=== PATIENT | male | born 1965 | race Caucasian/White ===

== ENCOUNTER → 2020-02-18 | Outpatient (CLI) | payer OTHER ==
[2020-02-18 14:17] LABS: CREATININE SERUM 2.12 MG/DL (0.60-1.30); POTASSIUM 3.4 MMOL/L (3.6-5.0)
[2020-02-18 14:21] LABS: CALCIUM 9.5 MG/DL (8.5-10.1)
== END ==
LOC: LAB FS 13:03
PROVIDERS: ATTEND Family Medicine
DX: L03.119 Cellulitis of unspecified part of limb (principal)
CPT/HCPCS: 36415; 80048

== ENCOUNTER → 2020-05-23 | Outpatient (CLI) | payer OTHER | LOC: WOUNDCARE 14:29 | PROVIDERS: ATTEND Surgery | DX: E11.52 Type 2 diabetes mellitus with diabetic peripheral angiopathy with gangrene (principal); E11.622 Type 2 diabetes mellitus with other skin ulcer; E11.65 Type 2 diabetes mellitus with hyperglycemia; I96 Gangrene, not elsewhere classified; I87.333 Chronic venous hypertension (idiopathic) with ulcer and inflammation of bilateral lower extremity; L97.212 Non-pressure chronic ulcer of right calf with fat layer exposed; L97.221 Non-pressure chronic ulcer of left calf limited to breakdown of skin; L73.9 Follicular disorder, unspecified; M35.9 Systemic involvement of connective tissue, unspecified | CPT/HCPCS: 11104 ==

== ENCOUNTER → 2020-05-23 | Outpatient (CLI) | payer OTHER ==
[2020-05-23 16:58] LABS: ERYTHROCYTE SEDIMENTATION RATE 34 MM/HR (0-30)
[2020-05-23 17:03] LABS: BASOPHILS # (AUTO) 0.1 10^3/uL (0.0-0.1); BASOPHILS % (AUTO) 1 % (0-10); EOSINOPHILS # (AUTO) 0.3 10^3/uL (0.0-0.3); EOSINOPHILS % (AUTO) 6 % (0-10); HEMATOCRIT 37 % (40-54); HEMOGLOBIN 12.9 g/dL (13.3-17.7); LYMPHOCYTES # (AUTO) 1.7 10^3/uL (1.0-4.0); LYMPHOCYTES % (AUTO) 30 % (12-44); MEAN CORPUSCULAR HEMOGLOBIN 29 pg (25-34); MEAN CORPUSCULAR HGB CONC 35 g/dL (32-36); MEAN CORPUSCULAR VOLUME 83 fL (80-99); MEAN PLATELET VOLUME 10.8 fL (9.0-12.2); MONOCYTES # (AUTO) 0.4 10^3/uL (0.0-1.0); MONOCYTES % (AUTO) 7 % (0-12); NEUTROPHILS # (AUTO) 3.1 10^3/uL (1.8-7.8); NEUTROPHILS % (AUTO) 55 % (42-75); PLATELET COUNT 216 10^3/uL (130-400); WHITE BLOOD COUNT 5.6 10^3/uL (4.3-11.0)
== END ==
LOC: LAB 16:26
PROVIDERS: ATTEND Surgery
DX: M35.9 Systemic involvement of connective tissue, unspecified (principal); E11.622 Type 2 diabetes mellitus with other skin ulcer; E11.65 Type 2 diabetes mellitus with hyperglycemia; I87.333 Chronic venous hypertension (idiopathic) with ulcer and inflammation of bilateral lower extremity; L97.212 Non-pressure chronic ulcer of right calf with fat layer exposed; L97.222 Non-pressure chronic ulcer of left calf with fat layer exposed; L73.9 Follicular disorder, unspecified
CPT/HCPCS: 36415; 85025; 85652; 86141

== ENCOUNTER → 2020-06-08 | Outpatient (CLI) | payer OTHER | LOC: WOUNDCARE 14:40 | PROVIDERS: ATTEND Surgery | DX: M35.9 Systemic involvement of connective tissue, unspecified (principal); E11.622 Type 2 diabetes mellitus with other skin ulcer; I87.333 Chronic venous hypertension (idiopathic) with ulcer and inflammation of bilateral lower extremity; L97.212 Non-pressure chronic ulcer of right calf with fat layer exposed; L97.221 Non-pressure chronic ulcer of left calf limited to breakdown of skin; E11.65 Type 2 diabetes mellitus with hyperglycemia; L73.9 Follicular disorder, unspecified; I96 Gangrene, not elsewhere classified | CPT/HCPCS: 99213 ==

== ENCOUNTER → 2020-12-20 | Outpatient (CLI) | payer OTHER ==
--- NOTE | 2020-12-20 17:00 | Diagnostic Imaging Report ---
PROCEDURE: CT chest without contrast. TECHNIQUE: Multiple contiguous axial images were obtained through the chest without the use of intravenous contrast. Auto Exposure Controls were utilized during the CT exam to meet ALARA standards for radiation dose reduction. INDICATION: Cardiac disease. FINDINGS: The lungs are well aerated. There are no infiltrates. There is a 3 mm calcified nodule in the right middle lobe. Aorta is atherosclerotic. Coronary arteries are densely calcified. No pleural effusions or pericardial effusions. The adrenal glands are not enlarged. No bony abnormalities. IMPRESSION: Small calcified granuloma, otherwise negative. Dictated by: Dictated on workstation # [id number]
== END ==
LOC: RAD FS 12:44
PROVIDERS: ATTEND Nurse Practitioner Family
DX: L92.9 Granulomatous disorder of the skin and subcutaneous tissue, unspecified (principal); R91.1 Solitary pulmonary nodule
CPT/HCPCS: 71250

== ENCOUNTER 2021-03-30 13:21 | Emergency (ER) | payer OTHER ==
[~2021-03-30] VITALS: Ht 177.7 cm; Wt 104.0 kg
--- OUTSIDE RECORDS SUMMARY | 2021-03-30 13:27 | XMS REPORT | Encounter Summary ---
Author Author [facility] Organization [facility] Address Unknown Phone Unavailable Care Team Providers Care Relay Checker Name Role Phone Provider, Not In System PCP Unavailable Reason for Referral * Consultation (Routine) Referred By Contact Referred To Contact Status Reason Specialty Diagnoses / Procedures Yeimy Iqbal, RN ADMINISTRATIVE COURT JUSTICE [address] [place] [address] [facility] [place] [address] [place] [address] Authorized Specialty Services Endocrinology Diagnoses Required Type 2 diabetes mellitus with hyperglycemia (HCC) Electronically signed by Yeimy Iqbal RN ADMINISTRATIVE COURT JUSTICE at Encounter Details Care Team Description Date Type Department Provider, MD Michaela [address] [place] [id number] Type 2 diabetes mellitus with hyperglyce jonny (HCC) (Primary Dx) 03/09/2021 Transcribe Preeti & Narendra nunez Orders [facility] [address] [place] [address] [id number] Social History Date Tobacco Use Types Packs/Day Years Used Never Smoker Smokeless Tobacco: Snuff Current User Comments Alcohol Use Standard Drinks/Week Occasionally Yes 0 (1 standard drink = 0.6 o z pure alcohol) Sex Assigned at Date Recorded Male 01/10/2019 7:51 AM CDT documented as of this encounter Plan of Treatment Order Schedule Name Type Priority Associated Diag noses 1 Occurrences starting 03/09/2021 until 09/06/2021 Amb Referral To Outpatient Routine Type 2 diabete s mellitus Endocrinology Referral with hyperglycemia (HCC) documented as of this encounter Goals Goal Patient Associated Recent Progress Patient-Stat Aut hor Goal Type Problems ed? Blood Pressure < 130/80 Blood 168/97 (01/19/2019 No Neises, Pressure 6:59 AM CDT) KEHINDE Estrada documented as of this encounter Visit Diagnoses Diagnosis Type 2 diabetes mellitus with hyperglyc emia (HCC) - Primary documented in this encounter
--- OUTSIDE RECORDS SUMMARY | 2021-03-30 13:27 | XMS REPORT | Clinical Summary ---
Author Author [facility] Organization [facility] Address Unknown Phone Unavailable Care Team Providers Care Allergy And Immunology Chief Name Role Phone Provider, Not In System PCP Unavailable Allergies Comments Active Allergy Reactions Severity Noted Date " for 4 minutes" Heart stopped Cocaine Other (See High 11/27/2018 Comments) Medications End Date Status Medication Sig Dispensed Refills Start Date Active cinnamon bark 500 mg Take 500 mg 0 capsule by mouth daily. Active garlic 500 mg cap Take by 0 mouth. Active naproxen (NAPROSYN) 250 Take 250 mg 0 MG tablet by mouth 2 (two) times a day with meals. Active lisinopril Take 5 mg by 0 (PRINIVIL,ZESTRIL) 5 MG mouth 2 (two) tablet times a day. Active polyethylene glycol Take 17 g by 255 g 0 01/19 (GLYCOLAX) 17 gram/dose mouth daily. 9 powder Active insulin detemir U-100 Inject 34 20 1 01/21 (LEVEMIR) 100 unit/mL (3 Units under Pre-filled 9 mL) pen the skin 2 Pen Syringe (two) times a day. Active insulin lispro (HUMALOG) Inject 20 20 1 0 100 unit/mL (3 mL) pen Units under Pre-filled 9 the skin 3 Pen Syringe (three) times a day with meals. Active Problems Problem Noted Date Multiple open wounds of lower leg 01/18/2019 Last Assessment & Plan: Formatting of this note might be differ ent from the original. Poor wound healing possible sec to PAD. Aert U/S with RUTH's ordered. Wound consulted. Obstructive uropathy 01/17/2019 Last Assessment & Plan: Formatting of this note might be differ ent from the original. CT abd/pelv with 5 mm calculus in the m id to distal right ureter at the level of L5 resulting in moderate right hydronephrosis and hydroureter Consult urology Pain control Strain all urine Diabetic neuropathy 11/27/2018 Carpal tunnel syndrome 11/27/2018 Type 2 diabetes mellitus with diabetic neuropathy, wi th long-term current 11/27/2018 use of insulin Last Assessment & Plan: Formatting of this note might be differ ent from the original. Takes levemir 34u BID + humalog 20u wit h meals Cont levemir 34u qhs + SSI for now whil e NPO and adjust as needed Erectile dysfunction 11/27/2018 Essential hypertension 11/27/2018 Last Assessment & Plan: Formatting of this note might be differ ent from the original. IV hydralazine prn while NPO Resume home lisinopril when taking PO Resolved Problems Problem Noted Date Resolved Date Pancreatitis 01/17/2019 01/18/2019 Last Assessment & Plan: Formatting of this note might be differ ent from the original. Unclear etiology, does not drink alcoho l to excess Lipase 2859 CT abd/pelv without evidence of pancrea titis or gallstone pathology RUQ ordered to better evaluate Check lipid panel Aggressive IVF NPO Consider GI consult if no improvement Encounters Care Team Description Date Type Specialty Provider, Historical, Type 2 diabetes mellitus with hyperglyce jonny (HCC) (Primary Dx) 03/09/2021 Transcribe Endocrinology Orders from Last 3 Months Family History Medical History Relation Name Comments Diabetes Father Hypertension Mother Diabetes Paternal Grandmother Relation Name Status Comments Father Mother Paternal Grandmother Social History Date Tobacco Use Types Packs/Day Years Used Never Smoker Smokeless Tobacco: Snuff Current User Comments Alcohol Use Standard Drinks/Week Occasionally Yes 0 (1 standard drink = 0.6 o z pure alcohol) Sex Assigned at Date Recorded Male 01/10/2019 7:51 AM CDT Last Filed Vital Signs Reading Time Taken Comments Vital Sign 168/97 01/19/2019 6:59 AM CDT Blood Pressure 71 01/19/2019 6:59 AM CDT Pulse 36.7 C (98.1 F) 01/19/2019 6:59 AM CDT Temperature 18 01/19/2019 6:59 AM CDT Respiratory Rate 97% 01/19/2019 6:59 AM CDT Oxygen Saturation - - Inhaled Oxygen Concentration 99.8 kg (220 lb) 01/19/2019 12:03 AM CDT Weight 172.7 cm (5' 8") 01/18/2019 2:22 PM CDT Height 33.45 01/18/2019 2:22 PM CDT Body Mass Index Plan of Treatment Health Maintenance Due Date Last Done Comments Diabetes Mellitus 1965 Hemoglobin A1C Diabetes Mellitus 1965 Ophthalmology Exam Hepatitis C Screen 1965 Td/Tdap# 1965 Pneumococcal Vaccine: 1969 Pediatrics (0 to 5 Years) and At-Risk Patients (6 to 64 Years) (1 of 2 - PPSV23) Diabetes Mellitus Foot 1973 Exam COVID-19 Vaccine (1) 1975 Colorectal Screening via 2013 Colonoscopy Zoster Vaccine# (1 of 2) 2013 Lipid Screening 01/19/2020 01/18/2019, 01/18/2019 Influenza Vaccine (#1) 2021 Goals Goal Patient Associated Recent Progress Patient-Stat Aut hor Goal Type Problems ed? Blood Pressure < 130/80 Blood 168/97 (01/19/2019 No Neises, Pressure 6:59 AM CDT) Crystal, LEAD JAVA J2EE DEVELOPER Implants Device Identifier Shelf Expiration Date Model / Serial / L ot Implanted Type Area Manufactur er 09/23/2022 [id number] / / [id number] Implant Stent Ureteral Open Tip Non-Tissue Right: Ureter OLYMPUS 4.5fr X 28cm [id number] - [id number] Implant ENDO SCOPY Implanted: Qty: 1 on 01/18/2019 by Jaydon Rivera MD at [facility] Results Not on filefrom Last 3 Months Insurance Type Payer Benefit Subscriber ID Effective Phone Address Plan / Dates Group [facility] [id number] 2018-P resent [id number] AdiTab J Personal/F Self 1965 [address] (Home) [place] [address] AdiTab J Personal/F Self 1965 [address] (Home) [place], [place] [address] Advance Directives For more information, please contact: [phone] Patient Assembler Carbon Brushes Explanation Type Date Recorded Health Care Directive Date Inactivated Comments Code Status Date Activated 01/19/2019 2:11 PM Full Code 01/18/2019 4:52 PM 01/18/2019 4:52 PM Full Code 01/17/2019 3:02 PM
--- OUTSIDE RECORDS SUMMARY | 2021-03-30 13:27 | XMS REPORT | Clinical Summary ---
Author Author [facility] Organization [facility] Address Unknown Phone Unavailable Care Team Providers Care Choirmaster Name Role Phone PCP Unavailable Source Comments Some departments are not documenting in the electronic medical record. If you d o not see the information that you expected, contact Release of Information in [facility] [employer] Information Management department at [phone] for further assistan ce in locating additional records.[facility] Allergies Not on File Medications Not on file Active Problems Not on file Social History Date Tobacco Use Types Packs/Day Years Used Never Assessed Sex Assigned at Date Recorded Not on file Last Filed Vital Signs Not on file Plan of Treatment Health Maintenance Due Date Last Done Comments HIV SCREENING 1978 DTAP/TDAP VACCINES (1 - 1981 Tdap) HEPATITIS C SCREENING 1981 PHYSICAL (COMPREHENSIVE) 1981 EXAM COLORECTAL CANCER 2013 SCREENING SHINGLES RECOMBINANT 2013 VACCINE (1 of 2) INFLUENZA VACCINE 01/21/2021 Results Not on filefrom Last 3 Months Advance Directives Patient Chemistry Teacher Explanation Type Date Recorded Advance Directive/DPOA
--- NOTE | 2021-03-30 13:34 | ED Lower Extremity ---
General Chief Complaint: Lower Extremity Stated Complaint: RT TOE WOUND History of Present Illness Date Seen by Provider: Mar 30, 2021 Time Seen by Provider: 13:29 Initial Comments 55-year-old male presents with diabetic foot ulcer. Patient reports that he has peripheral neuropathy and cannot feel his toes. That about a week and a half ago he injured his second and third toe on the right foot at the distal aspect. That he has noticed a foul smell in the second and third toe a little bit more red than the other ones. Has some drainage last night but none today. He presents today because he wanted evaluated because he was unable to hold of his primary care provider. He does not report any fevers chills or other systemic complaints. Allergies and Home Medications Allergies Coded Allergies: vancomycin (Verified Allergy, Unknown, 03/30/21) Patient Home Medication List Home Medication List Reviewed: Yes Cephalexin (Cephalexin) 500 Mg Tablet, 500 MG PO QID Prescribed by: ARETHA ALCARAZ on 03/30/21 1339 Sulfamethoxazole/Trimethoprim (Bactrim Ds Tablet) 1 Each Tablet, 1 EACH PO BID Prescribed by: ARETHA ALCARAZ on 03/30/21 1339 Review of Systems Constitutional: no symptoms reported EENTM: no symptoms reported Respiratory: no symptoms reported Cardiovascular: no symptoms reported Gastrointestinal: no symptoms reported Musculoskeletal: see HPI Skin: see HPI Psychiatric/Neurological: No Symptoms Reported Physical Exam Vital Signs Vital Signs - First Documented 03/30/21 13:38 Temp 36.8 Pulse 73 Resp 16 B/P (MAP) 188/96 (126) Pulse Ox 98 O2 Delivery Room Air Capillary Refill : Height, Weight, BMI Height: '" Weight: lbs. oz. kg; BMI Method: General Appearance: WD/WN, no apparent distress Cardiovascular: regular rate, rhythm, no edema Respiratory: lungs clear, normal breath sounds Gastrointestinal: non tender, soft Neurologic/Psychiatric: alert, normal mood/affect, oriented x 3 Skin: other (Patient with mild erythema to second third toe with ulcerative laceration/diabetic foot wound on the plantar aspects of his second and third toes of the right foot) Progress/Results/Core Measures Results/Orders Vital Signs/I&O 03/30/21 13:38 Temp 36.8 Pulse 73 Resp 16 B/P (MAP) 188/96 (126) Pulse Ox 98 O2 Delivery Room Air Progress Progress Note : Progress Note Patient with mild infected diabetic foot ulcer. We will start him on Bactrim and Keflex. Recommend he follow-up with a primary care provider next week and consider outpatient wound care which she has had in the past. Patient stable and discharged Departure Impression Primary Impression: Diabetic foot ulcers Qualified Codes: E11.621 - Type 2 diabetes mellitus with foot ulcer; L97.519 - Non-pressure chronic ulcer of other part of right foot with unspecified severity Disposition: HOME, SELF-CARE Condition: Stable Departure-Patient Inst. Referrals: CARRIE ALONSO APRN (PCP) Primary Care Physician NAHOMI BROOKS MD (Family) Primary Care Physician Patient Instructions: Foot Care for Diabetics, Diabetic Foot Ulcer (DC) Add. Discharge Instructions: Follow-up with your primary care provider next week for recheck of your toes and possible wound care consultation All discharge instructions reviewed with patient and/or family. Voiced understanding. Scripts Sulfamethoxazole/Trimethoprim (Bactrim Ds Tablet) 1 Each Tablet 1 EACH PO BID, #14 TAB Prov: ARETHA ALCARAZ DO 03/30/21 Cephalexin (Cephalexin) 500 Mg Tablet 500 MG PO QID, #28 TAB 0 Refills Prov: ARETHA ALCARAZ DO 03/30/21 ARETHA ALCARAZ DO Mar 30, 2021 13:34
[2021-03-30 13:38] VITALS: BP 188/96
[2021-03-30] MEDS ORDERED: SULF1TAB38 PO (13:39)
[2021-03-30] MEDS ORDERED: CEPH500T PO (13:39)
== END 2021-03-30 13:43 | disposition home or self-care (01) ==
LOC: EDUNIT# 13:21 → ER FS 13:23
DX: E11.621 Type 2 diabetes mellitus with foot ulcer (principal); L97.513 Non-pressure chronic ulcer of other part of right foot with necrosis of muscle; L08.9 Local infection of the skin and subcutaneous tissue, unspecified
CPT/HCPCS: 99281

== ENCOUNTER 2021-04-24 19:50 | Emergency (ER) | payer OTHER ==
[~2021-04-24] VITALS: Ht 172 cm; Wt 97.7 kg
[~2021-04-24 19:50] MED LIST: CEPH500T PO; SULF1TAB38 PO
--- OUTSIDE RECORDS SUMMARY | 2021-04-24 19:54 | XMS REPORT | Clinical Summary ---
Author Author [facility] Organization [facility] Address Unknown Phone Unavailable Care Team Providers Care Beam Worker Name Role Phone Provider, Not In System [...] drink = 0.6 o z pure alcohol) Alcohol Habits Answer Date Recorded How often do you have a drink containing alcohol? No t asked How many drinks containing alcohol do you have on No t asked a typical day when you are drinking? How often do you have six or more drinks on one Not asked occasion? Comment: Occasionally 11/27/2018 Sex Assigned at Date Recorded Male 01/10/2019 [...] Neises, Pressure 6:59 AM CDT) KEHINDE Estrada Implants Device Identifier Shelf Expiration Date Model / Serial / L ot Implanted Type Area Manufactur er 09/23/2022 [id number] / / [id number] Implant Stent Ureteral Open Tip Non-Tissue Right: Ureter OLYMPUS 4.5fr X 28cm [id number] - [id number] Implant ENDO SCOPY Implanted: Qty: 1 on 01/18/2019 by Jaydon Rivera MD at [facility] Results Not on filefrom Last 3 Months Insurance Type Payer Benefit Subscriber ID Effective Phone Address Plan / Dates Group [facility] [id number] 2018-P [phone] [address] [address] [place] [address] [address] (Home) [place] [address] Adi,Tab J Personal/F Self 1965 [address] [facility] (Home) [place] [address] Adi,Tab J Personal/F Self 1965 [address] [facility] [address] (Home) [place] [address] Advance Directives For more information, please contact: [phone] Patient Gyro Compass Tester Explanation Type Date Recorded Health Care Directive Date Inactivated Comments Code Status Date Activated 01/19/2019 2:11 PM Full Code 01/18/2019 4:52 PM 01/18/2019 4:52 PM Full Code 01/17/2019 3:02 PM Care Teams Start Date End Date Beam Worker Relationship Specialty 08/10/19 Provider, Not In System PCP - General
--- OUTSIDE RECORDS SUMMARY | 2021-04-24 19:54 | XMS REPORT | Encounter Summary ---
Author Author [facility] Organization [facility] Address Unknown Phone Unavailable Care Team Providers Care Vanstone Machine Operator Name Role Phone Provider, Not In System PCP Unavailable Reason for Referral * Consultation (Routine) - Closed Diagnoses / Procedures [facility]erred [facility] Type 2 diabetes mellitus with hyperglycemia (HCC) Yeimy Iqbal RN INDUSTRIAL GAS PRODUCTION OPERATOR [address] [place] [address] [facility] [place] [address] [place] [address] Endocrinology Referral ID Status Reason Start Date Expiration Visits Vi sits Date Requested Authorized [id number] Closed Specialty Services 03/09/2021 09/06/2021 1 1 Required Encounter Details Care Team Description Date Type Department Provider, MD Michaela [address] [place] [id number] Type 2 diabetes mellitus with hyperglyce jonny (HCC) (Primary Dx) 03/09/2021 Transcribe Rony nunez Orders [facility] [address] [place], [place] [id number] Social History Date Tobacco Use Types Packs/Day [...] (HCC) - Primary documented in this encounter Care Teams Start Date End Date Vanstone Machine Operator Relationship Specialty 08/10/19 Provider, Not In System PCP - General documented as of this encounter
--- NOTE | 2021-04-24 21:31 | Diagnostic Imaging Report ---
EXAMINATION: Left foot 3 views HISTORY: Trauma and pain COMPARISON: None available. FINDINGS: Alignment is normal. No fracture is seen. Joint spaces are normal. IMPRESSION: 1. No fracture. Dictated by: Dictated on workstation # [id number]
[2021-04-24] MEDS ORDERED: morphine INJ 10 MG/ML 1ML (SYR OR VIAL) IM STA (23:04)
[2021-04-24] MEDS ORDERED: ACHD5005 PO (23:09)
--- NOTE | 2021-04-24 23:09 | ED Lower Extremity ---
General Chief Complaint: Lower Extremity Stated Complaint: LT FOOT PAIN Nursing Triage Note: Pt stated "a dog tripped my and I hurt the bottom of my foot." Pt is c/o right foot pain. Denies any other injury or head trauma. Pt has not taken any medications for pain. Source: patient History of Present Illness Date Seen by Provider: Apr 24, 2021 Time Seen by Provider: 22:31 Initial Comments 55-year-old male that tripped over his dog. He had this happen around noon today. He is having pain to the balls of his left foot. He has some chronic right foot pain. He is having difficulty walking and ambulating due to the pain. He has not taken anything for pain at home. He denies hitting his head or losing consciousness. He denies any other injuries. He does have diabetes and chronic neuropathy to bilateral feet. Allergies and Home Medications Allergies Coded Allergies: vancomycin (Verified Allergy, Unknown, 03/30/21) Patient Home Medication List Home Medication List Reviewed: Yes Cephalexin (Cephalexin) 500 Mg Tablet, 500 MG PO QID Prescribed by: ARETHA ALCARAZ on 03/30/21 1339 Hydrocodone/Acetaminophen (Hydrocodone-Acetamin 5-325 mg) 1 Each Tablet, 1 TAB PO Q6H PRN for PAIN-SEVERE (8-10) Prescribed by: MARY WEINSTEIN on 04/24/21 2309 Sulfamethoxazole/Trimethoprim (Bactrim Ds Tablet) 1 Each Tablet, 1 EACH PO BID Prescribed by: ARETHA ALCARAZ on 03/30/21 1339 Review of Systems Constitutional: No chills, No fever EENTM: no symptoms reported Respiratory: no symptoms reported Cardiovascular: no symptoms reported Gastrointestinal: no symptoms reported Genitourinary: no symptoms reported Musculoskeletal: muscle pain (Pain to the bottom of his right foot along the balls of his foot where the MTP joints are.) Psychiatric/Neurological: Paresthesia (Bilateral feet neuropathy) Physical Exam Vital Signs Vital Signs - First Documented 04/24/21 21:05 Temp 37.9 Pulse 73 Resp 18 B/P (MAP) 129/69 (89) Pulse Ox 99 O2 Delivery Room Air Capillary Refill : Less Than 3 Seconds Height, Weight, BMI Height: '" Weight: lbs. oz. kg; 33.00 BMI Method: General Appearance: WD/WN, no apparent distress HEENT: PERRL/EOMI, normal ENT inspection Cardiovascular: normal peripheral pulses, regular rate, rhythm Respiratory: chest non-tender, lungs clear, normal breath sounds Gastrointestinal: normal bowel sounds, soft, no pulsatile mass Back: no CVA tenderness, no vertebral tenderness Feet: left foot pain (To the end TP joints of the left foot.) Neurologic/Tendon: normal sensation, normal tendon functions Neurologic/Psychiatric: alert, oriented x 3 Skin: normal color, warm/dry Progress/Results/Core Measures Results/Orders My Orders Orders - MARY WEINSTEIN MD Foot 3 View Left (04/24/21 21:14) Elevate Affected Extremity (04/24/21 21:14) Ice: Apply To Affected Area (04/24/21 21:14) Morphine Injection (Morphine Injection (04/24/21 23:04) Rx-Hydrocodone/Apap 5-325 Mg (Rx-Vicodin (04/24/21 23:15) Medications Given in ED Current Medications Medications Dose Ordered Sig/Marilin Route Start Time Stop Time Status Last Admin Dose Admin Acetaminophen/ Hydrocodone Bitart 1 ea Q6H PRN PO 04/24/21 23:15 04/24/21 23:49 DC 04/24/21 23:21 1 EA Vital Signs/I&O 04/24/21 04/24/21 21:05 23:34 Temp 37.9 Pulse 73 71 Resp 18 18 B/P (MAP) 129/69 (89) 135/66 Pulse Ox 99 97 O2 Delivery Room Air Room Air Blood Pressure Mean: 89 Progress Progress Note #1: Progress Note Obtain x-ray to evaluate for possible bony injury. Progress Note #2: Progress Note X-rays did not show a definite fracture or dislocation. Will treat symptomatically and have him follow-up through the clinic for continued concerns. He states that he has a walking boot and crutches from an injury to his right foot and plans to use those for his left foot. He will use those when he gets home. He declined having new crutches or boot given to him tonight. As he was complaining of significant pain in the morphine pain shot was given and discharged with a few doses of hydrocodone. Diagnostic Imaging Diagonstic Imaging: Xray Plain Films/CT/US/NM/MRI: other (Right foot) Comments [facility] [place], [place] NAME: DARIO JEFFERSON [facility] REC#: [id number] PT STATUS: REG ER : 1965 PHYSICIAN: MARY WEINSTEIN MD ADMIT DATE: 04/24/21/ER FS Signed Date of Exam:04/24/21 FOOT 3 VIEW LEFT EXAMINATION: Left foot 3 views HISTORY: Trauma and pain COMPARISON: None available. FINDINGS: Alignment is normal. No fracture is seen. Joint spaces are normal. IMPRESSION: 1. No fracture. Dictated by: Dictated on workstation # [id number] Dict: 04/24/212128 Trans: 04/24/212153 [facility] [id number] Interpreted by: HAYDEN BARILLAS MD Electronically signed by: HAYDEN BARILLAS MD 04/24/212153 Reviewed: Reviewed by Me Departure Impression Primary Impression: Sprain of left foot Qualified Codes: S93.602A - Unspecified sprain of left foot, initial encounter Additional Impression: Contusion of left foot, initial encounter Disposition: 01 HOME, SELF-CARE Condition: Stable Departure-Patient Inst. Decision time for Depature: 23:06 Referrals: CARRIE ALONSO APRN (PCP) Primary Care Physician NAHOMI BROOKS MD (Family) Primary Care Physician Patient Instructions: Foot Sprain ED, How to Use Crutches, Walking Boot Add. Discharge Instructions: Use your boot and crutches you have at home to help with foot pain and injury. Weight bearing as tolerated on left foot. If not improving in 5-7 days then get rechecked and may need CT or MRI to look for hairline fractures. Use the Hydrocodone with Acetaminophen for more severe pain. All discharge instructions reviewed with patient and/or family. Voiced understanding. Scripts Hydrocodone/Acetaminophen (Hydrocodone-Acetamin 5-325 mg) 1 Each Tablet 1 TAB PO Q6H PRN for PAIN-SEVERE (8-10) for 5 Days, #20 TAB 0 Refills Prov: MARY WEINSTEIN MD 04/24/21 MARY WEINSTEIN MD Apr 24, 2021 23:09
[2021-04-24 23:34] VITALS: BP 135/66
== END 2021-04-24 23:34 | disposition home or self-care (01) ==
LOC: EDUNIT# 19:50 → ER FS 19:51
DX: S93.602A Unspecified sprain of left foot, initial encounter (principal); E11.21 Type 2 diabetes mellitus with diabetic nephropathy; W54.1XXA Struck by dog, initial encounter
CPT/HCPCS: 73630

== ENCOUNTER 2021-05-01 09:40 | Emergency (ER) | payer OTHER ==
[~2021-05-01] VITALS: Ht 172 cm; Wt 100.0 kg
[~2021-05-01 09:40] MED LIST changes: +ACHD5005 PO
[2021-05-01] MEDS ORDERED: NS IV ONE (10:00)
[2021-05-01 10:12] VITALS: BP_SYST 109; BP_SYST 119; BP_DIAS 57; BP_DIAS 61
[2021-05-01] MEDS ORDERED: HOLD METFORMIN - RECEIVED CONTRAST 20 ML VIAL IV SCH (10:15)
[2021-05-01] MEDS ORDERED: IOHEXOL 350 MG/ML 100 ML (OMNIPAQUE 350) VIAL IV ONE (10:15)
[2021-05-01] MEDS ORDERED: NS 100 ML (IVPB) BAG IV ONE (10:15)
[2021-05-01] MEDS ORDERED: CATHETER FLUSH 10 ML SYR IV PRN (10:15)
[2021-05-01 10:18] LABS: INR 1.2 (0.8-1.4); PROTHROMBIN TIME PATIENT 15.5 SEC (12.2-14.7)
[2021-05-01 10:26] LABS: HEMATOCRIT 32 % (40-54); HEMOGLOBIN 11.2 g/dL (13.3-17.7); MEAN CORPUSCULAR HEMOGLOBIN 28 pg (25-34)
[2021-05-01 10:27] LABS: BASOPHILS % (AUTO) 1 % (0-10); EOSINOPHILS # (AUTO) 0.3 10^3/uL (0.0-0.3); EOSINOPHILS % (AUTO) 5 % (0-10); LYMPHOCYTES # (AUTO) 0.7 X 10^3 (1.0-4.0); LYMPHOCYTES % (AUTO) 12 % (12-44); MEAN CORPUSCULAR HGB CONC 35 g/dL (32-36); MEAN CORPUSCULAR VOLUME 80 fL (80-99); MEAN PLATELET VOLUME 10.8 fL (9.0-12.2); MONOCYTES # (AUTO) 0.4 X 10^3 (0.0-1.0); MONOCYTES % (AUTO) 7 % (0-12); NEUTROPHILS # (AUTO) 4.6 X 10^3 (1.8-7.8); NEUTROPHILS % (AUTO) 76 % (42-75); PLATELET COUNT 232 10^3/uL (130-400)
[2021-05-01 10:46] LABS: SODIUM 130 MMOL/L (135-145)
[2021-05-01 10:47] LABS: ALANINE AMINOTRANSFERASE 43 U/L (0-55); ALBUMIN 3.4 GM/DL (3.2-4.5); ALKALINE PHOSPHATASE 265 U/L (40-136); BUN/CREATININE RATIO 12; CALCIUM 8.9 MG/DL (8.5-10.1); CARBON DIOXIDE 26 MMOL/L (21-32); CHLORIDE 93 MMOL/L (98-107); CREATININE SERUM 2.41 MG/DL (0.60-1.30); GFR ESTIMATED 28; GLUCOSE 169 MG/DL (70-105); POTASSIUM 3.2 MMOL/L (3.6-5.0); TOTAL PROTEIN 7.5 GM/DL (6.4-8.2)
--- NOTE | 2021-05-01 10:53 | Diagnostic Imaging Report ---
INDICATION: Sepsis and vomiting. Frontal chest obtained at 10:37 a.m. There is no prior study for comparison. FINDINGS: Heart is borderline in size. There is some minimal linear atelectatic change in the right base. Lungs are otherwise clear. There is no pneumothorax or pleural fluid. IMPRESSION: Borderline heart size. Minimal right basilar atelectasis. No consolidation or pleural fluid. Dictated by: Dictated on workstation # [id number]
--- NOTE | 2021-05-01 12:06 | Diagnostic Imaging Report ---
PROCEDURE: CT head without contrast. TECHNIQUE: Multiple contiguous axial images were obtained through the brain without the use of intravenous contrast. Auto Exposure Controls were utilized during the CT exam to meet ALARA standards for radiation dose reduction. INDICATION: Altered mental status and dizziness. COMPARISON: None available. FINDINGS: No intracranial hyperdense hemorrhage or space-occupying mass. No hydrocephalus or midline shift. Prominent perivascular space is present in the left basal ganglia. Periventricular and subcortical white matter hypoattenuation is most likely due to chronic microvascular ischemic disease. Joe-white matter differentiation is preserved. Mild mucosal thickening in the ethmoid air cells. Other paranasal sinuses are clear. Mastoid air cells are clear. IMPRESSION: No acute intracranial process by CT. Dictated by: Dictated on workstation # [id number]
--- NOTE | 2021-05-01 12:12 | Diagnostic Imaging Report ---
EXAMINATION: CT ABDOMEN/PELVIS WO. TECHNIQUE: Unenhanced CT imaging of the abdomen and pelvis was performed. 2D reformats are created and submitted for interpretation. Automatic exposure controls were utilized to optimize patient dose. INDICATION: Nausea, vomiting, and abdominal pain. COMPARISON: None available. FINDINGS: Evaluation of the abdominal viscera is mildly limited without contrast. Lower chest: The lung bases are clear. No pericardial or pleural effusion. Peritoneum: No free intraperitoneal air or fluid. Liver and biliary system: Unenhanced liver is normal. Cholelithiasis. No features of acute cholecystitis. Spleen and Pancreas: Spleen is normal. Unenhanced pancreas is grossly normal. Adrenals: Normal. tract: Nonobstructing 3 mm stone in the lower pole of the right kidney. No left renal stones. Rounded hypodensity in the mid left kidney is suboptimally characterized by noncontrast imaging but likely a cyst. No hydronephrosis on either side. Urinary bladder is decompressed. The prostate is not enlarged. GI tract: Stomach is decompressed. No bowel obstruction. No pericolonic inflammatory changes. Normal appendix. Vasculature and Lymph nodes: Normal caliber aorta. No abdominal or pelvic lymphadenopathy. Musculoskeletal: No concerning osseous lesion. IMPRESSION: 1. No bowel obstruction, colitis, or diverticulitis. 2. Nonobstructing 3 mm right renal stone. Dictated by: Dictated on workstation # [id number]
--- NOTE | 2021-05-01 12:38 | ED GI ---
General Chief Complaint: Abdominal/GI Problems Stated Complaint: FALLS; VOMITING; EQUILIBRIUM ISSUE Nursing Triage Note: Patient has presented to ER with cc of past week of vomiting, diarrhea, and dizziness. The dizziness is much worse when he ambulates. He reports some intermittant abd cramping over the past few days. Source of Information: Patient Exam Limitations: No Limitations History of Present Illness Date Seen by Provider: May 01, 2021 Time Seen by Provider: 09:40 Initial Comments Patient is a 55-year-old male who presents with nausea vomiting and feeling lightheaded and dizzy for the past 2 days. Patient reports dizziness when he walks. He denies room spinning or falling sensation. He denies lateralization of dizziness or following her leaning to one side. Dizziness does improve with rest. He denies near syncope or syncope. Denies chest pain palpitations, shortness of breath. He has had intermittent abdominal cramps with nausea and vomiting for the past 3 days. Patient does have chronic diarrhea. He first noted that symptoms began 2 days ago after being treated in the ER for a leg injury and receiving morphine and hydrocodone. Patient has continued to take medications at home. Denies prior adverse reactions to narcotics. No cough, sore throat, fever chills, sweats. No hematemesis, coffee-ground emesis, hematochezia, or melena melena. No other acute symptoms or complaints Timing/Duration: 2-3 Days Severity/Quality: Moderate Location: Other Radiation: Other Activities at Onset: Other Modifying Factors: Improves With Other Associated Symptoms: Other Allergies and Home Medications Allergies Coded Allergies: vancomycin (Verified Allergy, Unknown, 03/30/21) Patient Home Medication List Home Medication List Reviewed: Yes Cephalexin (Cephalexin) 500 Mg Tablet, 500 MG PO QID Prescribed by: ARETHA ALCARAZ on 03/30/21 1339 Hydrocodone/Acetaminophen (Hydrocodone-Acetamin 5-325 mg) 1 Each Tablet, 1 TAB PO Q6H PRN for PAIN-SEVERE (8-10) Prescribed by: MARY WEINSTEIN on 04/24/21 2309 Sulfamethoxazole/Trimethoprim (Bactrim Ds Tablet) 1 Each Tablet, 1 EACH PO BID Prescribed by: ARETHA ALCARAZ on 03/30/21 1339 Review of Systems Review of Systems Constitutional: see HPI EENTM: See HPI Respiratory: See HPI Cardiovascular: See HPI Gastrointestinal: See HPI Genitourinary: See HPI Musculoskeletal: see HPI Skin: see HPI Psychiatric/Neurological: See HPI Endocrine: See HPI Hematologic/Lymphatic: See HPI All Other Systems Reviewed Negative Unless Noted: Yes Past Zidybwn-Uhwfnz-Pltdoh Hx Patient Social History Smoking Status: Unknown if Ever Smoked Smokeless Tobacco Frequency: Unknown if Ever Used Use of E-Cig and/or Vaping dev: Unable to obtain Substance use?: No Alcohol Use?: No Pt feels they are or have been: Unable to obtain Physical Exam Vital Signs Vital Signs - First Documented 05/01/21 09:55 Temp 36.0 Pulse 69 Resp 18 B/P (MAP) 109/61 (77) Pulse Ox 94 O2 Delivery Room Air Capillary Refill : Height/Weight/BMI Height: '" Weight: lbs. oz. 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, no motor/sensory deficits, alert, oriented x 3 Skin: normal color Focused Exam Sepsis Stage: Ruled Out Lactate Level 05/01/21 09:53: Lactic Acid Level 1.35 Lactic Acid Level Laboratory Tests Test 05/01/21 09:53 Lactic Acid Level 1.35 MMOL/L (0.50-2.00) Progress/Results/Core Measures Results/Orders Lab Results Laboratory Tests Test 05/01/21 09:53 05/01/21 09:54 05/01/21 12:25 Range/Units White Blood Count 6.0 4.3-11.0 10^3/uL Red Blood Count 4.01 L 4.30-5.52 10^6/uL Hemoglobin 11.2 L 13.3-17.7 g/dL Hematocrit 32 L 40-54 % Mean Corpuscular Volume 80 80-99 fL Mean Corpuscular Hemoglobin 28 25-34 pg Mean Corpuscular Hemoglobin Concent 35 32-36 g/dL Red Cell Distribution Width 12.9 10.0-14.5 % Platelet Count 232 130-400 10^3/uL Mean Platelet Volume 10.8 9.0-12.2 fL Immature Granulocyte % (Auto) 1 % Neutrophils (%) (Auto) 76 H 42-75 % Lymphocytes (%) (Auto) 12 12-44 % Monocytes (%) (Auto) 7 0-12 % Eosinophils (%) (Auto) 5 0-10 % Basophils (%) (Auto) 1 0-10 % Neutrophils # (Auto) 4.6 1.8-7.8 X 10^3 Lymphocytes # (Auto) 0.7 L 1.0-4.0 X 10^3 Monocytes # (Auto) 0.4 0.0-1.0 X 10^3 Eosinophils # (Auto) 0.3 0.0-0.3 10^3/uL Basophils # (Auto) 0.0 0.0-0.1 10^3/uL Immature Granulocyte # (Auto) 0.0 0.0-0.1 10^3/uL Prothrombin Time 15.5 H 12.2-14.7 SEC INR Comment 1.2 0.8-1.4 Activated Partial Thromboplast Time 30 24-35 SEC Sodium Level 130 L 135-145 MMOL/L Potassium Level 3.2 L 3.6-5.0 MMOL/L Chloride Level 93 L 98-107 MMOL/L Carbon Dioxide Level 26 21-32 MMOL/L Anion Gap 11 5-14 MMOL/L Blood Urea Nitrogen 30 H 7-18 MG/DL Creatinine 2.41 H 0.60-1.30 MG/DL Estimat Glomerular Filtration Rate 28 BUN/Creatinine Ratio 12 Glucose Level 169 H 70-105 MG/DL Lactic Acid Level 1.35 0.50-2.00 MMOL/L Calcium Level 8.9 8.5-10.1 MG/DL Corrected Calcium 9.4 8.5-10.1 MG/DL Total Bilirubin 1.0 0.1-1.0 MG/DL Aspartate Amino Transf (AST/SGOT) 21 5-34 U/L Alanine Aminotransferase (ALT/SGPT) 43 0-55 U/L Alkaline Phosphatase 265 H 40-136 U/L Troponin I < 0.30 <0.30 NG/ML Pro-B-Type Natriuretic Peptide 582.2 H <75.0 PG/ML Total Protein 7.5 6.4-8.2 GM/DL Albumin 3.4 3.2-4.5 GM/DL Serum Alcohol < 10 <10 MG/DL Glucometer 180 H 70-110 MG/DL My Orders Orders - ALCON CAAL DO Cbc With Automated Diff (05/01/21 09:49) Comprehensive Metabolic Panel (05/01/21 09:49) Blood Culture (05/01/21 09:49) Sputum Culture (05/01/21 09:49) Urinalysis (05/01/21:49) Urine Culture (05/01/21:49) Protime With Inr (05/01/21:49) Partial Thromboplastin Time (05/01/21:49) Chest 1 View Ap/Pa Only (05/01/21:49) Ed Iv/Invasive Line Start (05/01/21:49) Ed Iv/Invasive Line Start (05/01/21 09:49) Vital Signs Adult Sepsis Patie Q15M (05/01/21 09:49) O2 (05/01/21:49) Remove Rings In Anticipation O (05/01/21:49) Lactic Acid Analyzer (05/01/21 09:49) Ns Iv 1000 Ml (Sodium Chloride 0.9%) (05/01/21 10:00) Ekg-Prn For Chest Pain Or Rhyt (05/01/21 09:49) Drug Screen Stat (Urine) (05/01/21 09:49) Alcohol (05/01/21 09:49) Accucheck Achs ACHS (05/01/21 09:49) Orthostatic Vital Signs (Adult (05/01/21 09:49) Troponin I Fs (05/01/21 09:49) Probnp Fs (05/01/21 09:49) Iohexol Injection (Omnipaque 350 Mg/Ml 1 (05/01/21 10:15) Received Contrast (Hold Metformin- Contr (05/01/21 10:15) Sodium Chloride Flush (Catheter Flush Sy (05/01/21 10:15) Ns (Ivpb) (Sodium Chloride 0.9% Ivpb Bag (05/01/21 10:15) Ct Abdomen/Pelvis Wo (05/01/21 11:14) Ct Head Wo (05/01/21 ) Medications Given in ED Current Medications Medications Dose Ordered Sig/Marilin Route Start Time Stop Time Status Last Admin Dose Admin Sodium Chloride 2,931 ml @ 2,931 mls/hr ONCE ONCE IV 05/01/21 10:00 05/01/21 10:59 DC 05/01/21 10:02 2,931 MLS/HR Vital Signs/I&O 05/01/21 05/01/21 05/01/21 09:55 10:12 10:12 Temp 36.0 Pulse 69 67 68 Resp 18 B/P (MAP) 109/61 (77) 109/61 (77) 119/57 (77) Pulse Ox 94 O2 Delivery Room Air Blood Pressure Mean: 77 FSBG Bedside Testing Finger Stick Blood Glucose: 180 Departure Communication (Admissions) CT head: No acute findings Chest abdomen pelvis: No acute findings EKG: Sinus rhythm with ventricular hypertrophy, Q waves of inferior leads no acute ST-T wave changes. Patient with nonspecific dizziness nausea vomiting with multiple nonspecific symptoms. IV fluids nausea medication given with clinical improvement. Patient is less dizzy. Lab and imaging are reviewed. Recommendations are supportive care with PCP follow-up. Return precautions reviewed. Patient verbalizes understanding agreement discharge instructions prior to departure Impression Primary Impression: Dizziness Additional Impressions: Nausea and vomiting Chronic kidney disease Disposition: HOME, SELF-CARE Condition: Stable Departure-Patient Inst. Decision time for Depature: 12:44 Referrals: CARRIE ALONSO APRN (PCP) Primary Care Physician NAHOMI BROOKS MD (Family) Primary Care Physician Patient Instructions: Dizziness, Adult ED, Nausea and Vomiting, Adult ED, Kidney Disease Diet (For People Not on Dialysis) Add. Discharge Instructions: You were evaluated in the emergency department for dizziness nausea and vomiting. EKG lab and imaging studies were performed and are nondiagnostic. The exact cause of your symptoms has not been determined but may be related to recent narcotic pain medication prescribed in the emergency department. Please discontinue home narcotic pain medication and take Zofran as needed for nausea. Drink clear liquids for the next 6 hours then gradually increase to a bland diabetic diet as tolerated. Follow-up with your PCP in 2 to 3 days if symptoms persist. Return to the ED if new or worsening symptoms. All discharge instructions reviewed with patient and/or family. Voiced understanding. Scripts Ondansetron (Ondansetron Odt) 4 Mg Tab.rapdis 4 MG PO Q6H, #10 TAB Prov: ALCON ACAL DO 05/01/21 ALCON CAAL DO May 01, 2021 12:38
[2021-05-01] MEDS ORDERED: ONDA4TAB11 PO (12:46)
[2021-05-01 12:58] LABS: CLARITY,URINE TURBID; COLOR,URINE YELLOW; GLUCOSE, URINE (UA) 1+ (NEGATIVE); PROTEIN,URINE 2+ (NEGATIVE)
[2021-05-01 12:59] LABS: BACTERIA,URINE NEGATIVE /HPF; KETONES,URINE NEGATIVE (NEGATIVE); LEUKOCYTE ESTERASE ,URINE NEGATIVE (NEGATIVE); NITRITE,URINE NEGATIVE (NEGATIVE); WBC,URINE 0-2 /HPF
[2021-05-01 13:00] LABS: AMORPHOUS SEDIMENT,UR LARGE AMOR URATES /LPF
[2021-05-01 13:04] LABS: AMPHETAMINE SCREEN, URINE NEGATIVE (NEGATIVE); BARBITURATE SCREEN URINE NEGATIVE (NEGATIVE); BENZODIAZEPINES SCREEN URINE NEGATIVE (NEGATIVE); BILIRUBIN,URINE 1+ (NEGATIVE); CANNABINOID SCREEN, URINE POSITIVE (NEGATIVE); COCAINE SCREEN URINE NEGATIVE (NEGATIVE); METHADONE STAT NEGATIVE (NEGATIVE); METHAMPHETAMINE SCREEN URINE S NEGATIVE (NEGATIVE); OPIATE SCREEN URINE NEGATIVE (NEGATIVE); OXYCODONE STAT NEGATIVE (NEGATIVE); PROPOXYPHENE STAT NEGATIVE (NEGATIVE); TRICYCLIC ANTIDEPRESSANTS SCRE NEGATIVE (NEGATIVE)
[2021-05-01 13:21] VITALS: BP 119/56
== END 2021-05-01 13:21 | disposition home or self-care (01) ==
LOC: EDUNIT# 09:40 → ER FS 09:42
DX: R42 Dizziness and giddiness (principal); R11.2 Nausea with vomiting, unspecified; N18.9 Chronic kidney disease, unspecified
CPT/HCPCS: 36415; 70450; 71045; 74176; 80053; 80306; 81000; 82947; 83605; 83880; 84484; 85025; 85610; 85730; 87040; 87088; 93005; 99284; G0480; 80320

== ENCOUNTER → 2021-11-07 | Outpatient (CLI) | payer OTHER ==
[~2021-11-07] MED LIST changes: +ONDA4TAB11 PO; +REGADENOSON 0.4 MG/5 ML SYR (LEXISCAN) IV ONE
[2021-11-07] MEDS: CATHETER FLUSH 10 ML SYR IVP PRN ×2 (10:53→10:55)
[2021-11-07 12:59] VITALS: BP 186/104
--- NOTE | 2021-11-07 16:02 | Cardiology Stress Test Report ---
Stress Test Report Date of Procedure/Referring: Date of Procedure: November 07, 2021 PCP Yeimy Iqbal Aprn Admitting Physician Admitting Physician: Attending Physician: Jason Grimes MD Indications: CP Baseline Heart Rate: 64 Baseline Blood Pressure: Blood Pressure Systolic: 186 Blood Pressure Diastolic: 104 Baseline Vitals Vital Signs Date Time Temp Pulse Resp B/P (MAP) Pulse Ox O2 Delivery O2 Flow Rate FiO2 11/07/21 12:59 64 186/104 (131) 99 Baseline EKG: Baseline EKG: NSR Summary After explaining the procedure to the patient, he signed a consent and then brought to the stress nuclear laboratory. Patient received 0.4 mg Lexiscan for stress test, ECG, heart rate and blood pressure were monitored continuously. Resting and stress dose of radio tracer were injected, imaging was acquired and reviewed in short axis, horizontal long axis and vertical long axis views. TID: 1.14 SSS: 5 SDS: 3 EF: 50 1. Patient tolerated Lexiscan well 2. Mild decrease uptake involving the anterolateral and inferolateral wall with mild reversibility. Overall there is no significant ischemia or infarction on SPECT images 3. Normal left ventricular size, ejection fraction 50% JASON GRIMES MD November 07, 2021 16:02
== END ==
LOC: CARD 10:30
PROVIDERS: ATTEND Internal Medicine Cardiovascular Disease
DX: I35.1 Nonrheumatic aortic (valve) insufficiency (principal); I11.9 Hypertensive heart disease without heart failure; I25.10 Atherosclerotic heart disease of native coronary artery without angina pectoris
CPT/HCPCS: 78452; 93017; 93306; A9502

== ENCOUNTER 2021-11-13 21:44 | Emergency (ER) | payer OTHER ==
[~2021-11-13] VITALS: Ht 172.7 cm; Wt 104.3 kg
[~2021-11-13 21:44] MED LIST changes: -REGADENOSON 0.4 MG/5 ML SYR (LEXISCAN) IV ONE
--- NOTE | 2021-11-13 22:16 | ED Upper Extremity ---
General Chief Complaint: Upper Extremity Stated Complaint: RIGHT HAND INJURY Source: patient History of Present Illness Date Seen by Provider: November 13, 2021 Time Seen by Provider: 22:01 Initial Comments 56-year-old male presenting with complaints of right hand pain. He had been trying to separate a kitten puppy at his house that were fighting. They were t rying to teach the animals to go along with a child. There was feeding time and there was food involved so they were trying to fight over that. He had grabbed the kitten with 1 hand and then use his right hand to try and hit the puppy in the nose and pushed him back however he had the dog on the top of its head instead. By doing so he had immediate pain and swelling to the right hand along his fifth metacarpal. He was concerned that he may have broke it because of the swelling and pain. He had tried some ice at home but it was continuing to be swollen and painful so he came to the ED to have x-rays to make sure it was not broken. Onset: just prior to arrival Severity: severe Pain/Injury Location: right hand Method of Injury: direct blow Modifying Factors: Worse With Movement Allergies and Home Medications Allergies Coded Allergies: vancomycin (Verified Allergy, Unknown, 03/30/21) cocaine (Unverified Adverse Reaction, Unknown, 11/13/21) Patient Home Medication List Home Medication List Reviewed: Yes Gemfibrozil (Gemfibrozil) 600 Mg Tablet, (Reported) Entered as Reported by: DEMI SAVAGE on 11/13/212225 Last Action: New Order Insulin Glargine,Hum.rec.anlog (Basaglar Kwikpen U-100) 100 Unit/Ml (3 Ml) Insuln.pen, (Reported) Entered as Reported by: DEMI SAVAGE on 11/13/212225 Last Action: New Order Pantoprazole Sodium (Pantoprazole Sodium) 40 Mg Tablet., (Reported) Entered as Reported by: DEMI SAVAGE on 11/13/212225 Last Action: New Order Discontinued Medications Cephalexin (Cephalexin) 500 Mg Tablet, 500 MG PO QID Discontinued Reason: Referral/FU Appt-Addtl Prescribed by: ARETHA ALCARAZ on 03/30/21 3100 Last Action: Discontinued Hydrocodone/Acetaminophen (Hydrocodone-Acetamin 5-325 mg) 1 Each Tablet, 1 TAB PO Q6H PRN for PAIN-SEVERE (8-10) Discontinued Reason: Referral/FU Appt-Addtl Prescribed by: MARY WEINSTEIN on 04/24/212308 Last Action: Discontinued Ondansetron (Ondansetron Odt) 4 Mg Tab.rapdis, 4 MG PO Q6H Discontinued Reason: Referral/FU Appt-Addtl Prescribed by: ALCON CAAL on 05/01/21 1246 Last Action: Discontinued Sulfamethoxazole/Trimethoprim (Bactrim Ds Tablet) 1 Each Tablet, 1 EACH PO BID Discontinued Reason: Referral/FU Appt-Addtl Prescribed by: ARETHA ALCARAZ on 03/30/21 1339 Last Action: Discontinued Review of Systems Constitutional: No chills, No fever EENTM: no symptoms reported Respiratory: no symptoms reported Cardiovascular: no symptoms reported Gastrointestinal: no symptoms reported Genitourinary: no symptoms reported Musculoskeletal: see HPI Skin: see HPI; No change in color Psychiatric/Neurological: Tingling (Right pinky finger); Denies Tremors, Denies Weakness Physical Exam Vital Signs Vital Signs - First Documented 11/13/21 22:02 Temp 37.1 Pulse 79 Resp 20 B/P (MAP) 191/105 (133) Pulse Ox 98 O2 Delivery Room Air Capillary Refill : Height, Weight, BMI Height: '" Weight: lbs. oz. 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 Counseled on follow-up and return precautions. Treat with an Ashish bandage for compression and ice and elevation Diagnostic Imaging Diagonstic Imaging: Xray Plain Films/CT/US/NM/MRI: hand Comments [facility], [place] NAME: DARIO JEFFERSON [facility] REC#: [id number] PT STATUS: REG ER : 1965 PHYSICIAN: MARY WEINSTEIN MD ADMIT DATE: 11/13/21/ER FS Signed Date of Exam:11/13/21 HAND 3 VIEW RIGHT EXAMINATION: Right hand radiograph EXAM DATE: 11/13/2021 10:19 PM COMPARISON: None available. HISTORY: Right hand pain TECHNIQUE: 3 views FINDINGS: There is no acute fracture, dislocation, or destructive osseous process. Degenerative changes of the 1st carpometacarpal joint. The soft tissues are normal. Vascular calcifications are present. IMPRESSION: 1. No acute osseous abnormality. Dictated by: Dictated on workstation # [id number] Dict: 11/13/212221 Trans: 11/13/212227 [facility] [id number] Interpreted by: SHRUTHI ALVAREZ DO Electronically signed by: SHRUTHI ALVAREZ DO 11/13/212227 Reviewed: Reviewed by Me Departure Impression Primary Impression: Contusion of right hand, initial encounter Additional Impression: Traumatic hematoma of right hand Qualified Codes: S60.221A - Contusion of right hand, initial encounter Disposition: HOME, SELF-CARE Condition: Stable Departure-Patient Inst. Decision time for Depature: 22:52 Referrals: CARRIE ALONSO APRN (PCP) Primary Care Physician NAHOMI BROOKS MD (Family) Primary Care Physician Patient Instructions: Hand Pain (DC), Minor Contusion ED Add. Discharge Instructions: Stay well hydrated and check with your regular provider for continued pain or more problems. Use the Ashish bandage for compression and to help with swelling and pain. Try ice 20 to 30 minutes every few hours to help with pain and swelling. Try to keep your hand elevated above heart level is much as possible. This will help with the swelling and throbbing with your hand. All discharge instructions reviewed with patient and/or family. Voiced understanding. MARY WEINSTEIN MD November 13, 2021 22:16
[2021-11-13] MEDS ORDERED: GEMF600T88 (22:26)
[2021-11-13] MEDS ORDERED: PANT40TA52 (22:26)
[2021-11-13] MEDS ORDERED: INSU100I34 (22:26)
--- NOTE | 2021-11-13 22:27 | Diagnostic Imaging Report ---
EXAMINATION: Right hand radiograph EXAM DATE: 11/13/2021 10:19 PM COMPARISON: None available. HISTORY: Right hand pain TECHNIQUE: 3 views FINDINGS: There is no acute fracture, dislocation, or destructive osseous process. Degenerative changes of the 1st carpometacarpal joint. The soft tissues are normal. Vascular calcifications are present. IMPRESSION: 1. No acute osseous abnormality. Dictated by: Dictated on workstation # [id number]
[2021-11-13 23:00] VITALS: BP 187/101
== END 2021-11-13 23:00 | disposition home or self-care (01) ==
LOC: EDUNIT# 21:44 → ER FS 21:47
DX: S60.221A Contusion of right hand, initial encounter (principal); W54.8XXA Other contact with dog, initial encounter
CPT/HCPCS: 73130

== ENCOUNTER 2022-01-12 19:17 | Inpatient (IN) | payer MEDICAID, OTHER ==
[~2022-01-12] VITALS: Ht 172.7 cm; Wt 106.5 kg
[~2022-01-12 19:17] MED LIST changes: +GEMF600T88; +INSU100I34; +PANT40TA52
[2022-01-12] MEDS ORDERED: fentaNYL INJ 100 MCG/2 ML AMP IVP ONE (21:30)
[2022-01-12] MEDS ORDERED: PIPERACILLIN SODIUM/TAZOBACTAM 4.5 GM in NS (IVPB) 100 ML IV ONE (21:30)
[2022-01-12 21:46] LABS: BASOPHILS % (AUTO) 0 % (0-10); EOSINOPHILS % (AUTO) 0 % (0-10); HEMATOCRIT 38 % (40-54); HEMOGLOBIN 13.1 g/dL (13.3-17.7); LYMPHOCYTES # (AUTO) 1.9 10^3/uL (1.0-4.0); LYMPHOCYTES % (AUTO) 14 % (12-44); MEAN CORPUSCULAR HEMOGLOBIN 28 pg (25-34); MEAN CORPUSCULAR HGB CONC 34 g/dL (32-36); MEAN CORPUSCULAR VOLUME 82 fL (80-99); MEAN PLATELET VOLUME 10.5 fL (9.0-12.2); MONOCYTES # (AUTO) 0.5 10^3/uL (0.0-1.0); MONOCYTES % (AUTO) 4 % (0-12); NEUTROPHILS % (AUTO) 81 % (42-75); PLATELET COUNT 203 10^3/uL (130-400); WHITE BLOOD COUNT 13.5 10^3/uL (4.3-11.0)
--- NOTE | 2022-01-12 21:57 | Diagnostic Imaging Report ---
EXAMINATION: Left foot 3 views. HISTORY: Cellulitis. COMPARISON: 04/24/2021. FINDINGS: Alignment is normal. No fracture is seen. Joint spaces are normal. There is soft tissue swelling overlying the dorsum of the foot. IMPRESSION: No fracture. Dictated by: Dictated on workstation # [id number]
[2022-01-12 22:05] LABS: BILIRUBIN,TOTAL 0.7 MG/DL (0.1-1.0); CALCIUM 9.3 MG/DL (8.5-10.1); CREATININE SERUM 3.52 MG/DL (0.60-1.30); POTASSIUM 4.4 MMOL/L (3.6-5.0)
[2022-01-12 22:06] LABS: ALBUMIN 3.4 GM/DL (3.2-4.5); TOTAL PROTEIN 7.7 GM/DL (6.4-8.2)
--- NOTE | 2022-01-12 22:26 | ED Lower Extremity ---
General Chief Complaint: Lower Extremity Stated Complaint: LEFT FOOT SWOLLEN/RED/HOT TO TOUCH Nursing Triage Note: Pt presents with swelling and redness to L foot and lower extremity. Source: patient, family Exam Limitations: no limitations History of Present Illness Date Seen by Provider: Jan 12, 2022 Time Seen by Provider: 21:10 Initial Comments 56-year-old male patient with history of diabetes mellitus, hyperlipidemia, GERD, renal insufficiency, lower extremity cellulitis presented to ER with complaining of left leg swelling and redness since this morning. Patient complaining of constant pain for the left leg edema and erythema without new focal neurodeficit since this morning. Patient denies fever, injury, nausea and vomiting, chest pain or shortness of breath. Patient states he had history of cellulitis previously and had chronic bilateral leg ulcers that was told that they are not diabetic ulcers. Allergies and Home Medications Allergies Coded Allergies: vancomycin (Verified Allergy, Unknown, 03/30/21) cocaine (Unverified Adverse Reaction, Unknown, 11/13/21) Patient Home Medication List Home Medication List Reviewed: Yes Gemfibrozil (Gemfibrozil) 600 Mg Tablet, (Reported) Entered as Reported by: DEMI SAVAGE on 11/13/212225 Insulin Glargine,Hum.rec.anlog (Basaglar Kwikpen U-100) 100 Unit/Ml (3 Ml) Insuln.pen, (Reported) Entered as Reported by: DEMI SAVAGE on 11/13/212225 Pantoprazole Sodium (Pantoprazole Sodium) 40 Mg Tablet., (Reported) Entered as Reported by: DEMI SAVAGE on 11/13/212225 Review of Systems Constitutional: no symptoms reported EENTM: no symptoms reported Respiratory: no symptoms reported Cardiovascular: no symptoms reported Gastrointestinal: no symptoms reported Genitourinary: no symptoms reported Musculoskeletal: see HPI Skin: see HPI Psychiatric/Neurological: No Symptoms Reported All Other Systems Reviewed Negative Unless Noted: Yes Past Jhlwfsu-Lteers-Uezbgo Hx Immunizations Up To Date First/Initial COVID19 Vaccinat: unvaccinated Second COVID19 Vaccination Mika: unvaccinated Third COVID19 Vaccination Date: unvaccinated Physical Exam Vital Signs Vital Signs - First Documented 01/12/22 22:13 Temp 36.7 Pulse 98 Resp 14 B/P (MAP) 143/83 (103) Capillary Refill : Less Than 3 Seconds Height, Weight, BMI Height: '" Weight: lbs. oz. kg; 34.00 BMI Method: General Appearance: mild distress HEENT: PERRL/EOMI, normal ENT inspection Neck: non-tender, full range of motion Cardiovascular: normal peripheral pulses, regular rate, rhythm Respiratory: chest non-tender, lungs clear Gastrointestinal: normal bowel sounds, non tender Back: normal inspection Hips: bilateral hip non-tender, bilateral hip normal inspection Legs: left leg ecchymosis, left leg limited range of motion, left leg soft tissue tenderness, left leg swelling Knees: bilateral knee non-tender, bilateral knee normal inspection Feet: left foot ecchymosis, left foot limited range of motion, left foot pain, left foot soft tissue tenderness, left foot swelling Neurologic/Tendon: normal motor functions Neurologic/Psychiatric: alert Skin: other (Left foot and leg edema and erythema extended to knee with mild tenderness) Progress/Results/Core Measures Results/Orders Lab Results Laboratory Tests Test 01/12/22 21:40 Range/Units White Blood Count 13.5 H 4.3-11.0 10^3/uL Red Blood Count 4.64 4.30-5.52 10^6/uL Hemoglobin 13.1 L 13.3-17.7 g/dL Hematocrit 38 L 40-54 % Mean Corpuscular Volume 82 80-99 fL Mean Corpuscular Hemoglobin 28 25-34 pg Mean Corpuscular Hemoglobin Concent 34 32-36 g/dL Red Cell Distribution Width 13.2 10.0-14.5 % Platelet Count 203 130-400 10^3/uL Mean Platelet Volume 10.5 9.0-12.2 fL Immature Granulocyte % (Auto) 1 % Neutrophils (%) (Auto) 81 H 42-75 % Lymphocytes (%) (Auto) 14 12-44 % Monocytes (%) (Auto) 4 0-12 % Eosinophils (%) (Auto) 0 0-10 % Basophils (%) (Auto) 0 0-10 % Neutrophils # (Auto) 11.0 H 1.8-7.8 10^3/uL Lymphocytes # (Auto) 1.9 1.0-4.0 10^3/uL Monocytes # (Auto) 0.5 0.0-1.0 10^3/uL Eosinophils # (Auto) 0.0 0.0-0.3 10^3/uL Basophils # (Auto) 0.0 0.0-0.1 10^3/uL Immature Granulocyte # (Auto) 0.2 H 0.0-0.1 10^3/uL Sodium Level 130 L 135-145 MMOL/L Potassium Level 4.4 3.6-5.0 MMOL/L Chloride Level 93 L 98-107 MMOL/L Carbon Dioxide Level 27 21-32 MMOL/L Anion Gap 10 5-14 MMOL/L Blood Urea Nitrogen 43 H 7-18 MG/DL Creatinine 3.52 H 0.60-1.30 MG/DL Estimat Glomerular Filtration Rate 19 BUN/Creatinine Ratio 12 Glucose Level 229 H 70-105 MG/DL Lactic Acid Level 1.19 0.50-2.00 MMOL/L Calcium Level 9.3 8.5-10.1 MG/DL Corrected Calcium 9.8 8.5-10.1 MG/DL Total Bilirubin 0.7 0.1-1.0 MG/DL Aspartate Amino Transf (AST/SGOT) 10 5-34 U/L Alanine Aminotransferase (ALT/SGPT) 11 0-55 U/L Alkaline Phosphatase 58 40-136 U/L Total Protein 7.7 6.4-8.2 GM/DL Albumin 3.4 3.2-4.5 GM/DL My Orders Orders - TIMOTHY FAJARDO MD Cbc With Automated Diff (01/12/22 21:25) Comprehensive Metabolic Panel (01/12/22 21:25) Blood Culture (01/12/22 21:25) Ed Iv/Invasive Line Start (01/12/22 21:25) Vital Signs Adult Sepsis Patie Q15M (01/12/22 21:25) Lactic Acid Analyzer (01/12/22 21:25) Piperacillin Sodium/Tazobactam (Zosyn Vi (01/12/22 21:30) Fentanyl Inj (Sublimaze Injection) (01/12/22 21:30) Foot 3 View Left (01/12/22 21:25) Ed Admission (Communication) (01/12/22 22:26) Medications Given in ED Current Medications Medications Dose Ordered Sig/Marilin Route Start Time Stop Time Status Last Admin Dose Admin Fentanyl Citrate 50 mcg ONCE ONCE IVP 01/12/22 21:30 01/12/22 21:31 DC 01/12/22 21:55 50 MCG Piperacillin Sod/ Tazobactam Sod 4.5 gm/Sodium Chloride 100 ml @ 200 mls/hr ONCE ONCE IV 01/12/22 21:30 01/12/22 21:59 DC 01/12/22 21:58 200 MLS/HR Vital Signs/I&O 01/12/22 22:13 Temp 36.7 Pulse 98 Resp 14 B/P (MAP) 143/83 (103) Blood Pressure Mean: 103 Progress Progress Note : Progress Note Evaluation of patient in ER showed 56-year-old male patient with history of diabetes mellitus and previous leg cellulitis presented with complaining of edema and tenderness and erythema of left foot and leg since this morning. Patient had 2+ edema of left foot with erythema extending to leg up to knee and tenderness. White count was 13,000 with normal lactic acid. Blood sugar was 229 and BUN was 42 and creatinine was 3.5 with history of chronic renal insufficiency. Patient treated with fentanyl and Zofran and 1 dose of Zosyn with improvement of his. Dr. Israel accepted admission at 2226 to [facility]. Patient and his informed about test result, plan of care, need for admission and all questions addressed. Diagnostic Imaging Plain Films/CT/US/NM/MRI: leg Comments Left leg x-ray interpreted by radiologist and reviewed by me and showed: NAME: DARIO JEFFERSON MED REC#: [id number] PT STATUS: REG ER : 1965 PHYSICIAN: TIMOTHY FAJARDO MD ADMIT DATE: 01/12/22/ER FS Signed Date of Exam:01/12/22 FOOT 3 VIEW LEFT EXAMINATION: Left foot 3 views. HISTORY: Cellulitis. COMPARISON: 04/24/2021. FINDINGS: Alignment is normal. No fracture is seen. Joint spaces are normal. There is soft tissue swelling overlying the dorsum of the foot. IMPRESSION: No fracture. Dictated by: Dictated on workstation # [id number] Dict: 01/12/222152 Trans: 01/12/222237 [facility] [id number] Interpreted by: HAYDEN BARILLAS MD Electronically signed by: HAYDEN BARILLAS MD 01/12/222237 Departure Communication (Admissions) Time/Spoke to Admitting Phy: 22:25 Dr. Israel accepted admission at 2226 to [facility]. Impression Primary Impression: Cellulitis of left lower extremity Additional Impressions: Chronic renal insufficiency Qualified Codes: N18.9 - Chronic kidney disease, unspecified Uncontrolled diabetes mellitus Qualified Codes: E13.65 - Other specified diabetes mellitus with hyperglycemia Disposition: 30 STILL A PATIENT Condition: Improved Admissions Decision to Admit Reason: Admit from ER (General) Decision to Admit/Date: Jan 12, 2022 Time/Decision to Admit Time: 22:28 Departure-Patient Inst. Referrals: CARRIE ALONSO APRN (PCP) Primary Care Physician NAHOMI BROOKS MD (Family) Primary Care Physician TIMOTHY FAJARDO MD Jan 12, 2022 22:26
[2022-01-13] VITALS (8 sets, daily range): BP systolic 135–159; BP diastolic 78–89
[2022-01-13] MEDS ORDERED: polyethylene glycoL POWDER 17 GM (MIRALAX) PACK PO PRN (00:15)
[2022-01-13] MEDS ORDERED: ANTACID SUSP 30 ML UDC (MYLANTA) PO PRN (00:15)
[2022-01-13] MEDS ORDERED: diphenhydrAMINE 50 MG/ML INJ (BENADRYL) IVP PRN (00:15)
[2022-01-13] MEDS ORDERED: ONDANSETRON 4 MG/2 ML (SDV) Z0FRAN IV PRN (00:15)
[2022-01-13] MEDS ORDERED: ACETAMINOPHEN 325 MG TABLET PO PRN (00:15)
[2022-01-13] MEDS ORDERED: ONDANSETRON 4 MG (ZOFRAN) ORAL DISSOLVE TAB PO PRN (00:15)
[2022-01-13] MEDS ORDERED: diphenhydrAMINE 25 MG TAB (BENADRYL) PO PRN (00:15)
[2022-01-13] MEDS ORDERED: MELATONIN 3 MG TABLET PO PRN (00:15)
[2022-01-13] MEDS ORDERED: BISACODYL 10 MG SUPP (DULCOLAX) PR PRN (00:15)
[2022-01-13] MEDS: GABAPENTIN 300 MG (NEURONTIN) CAP PO SCH ×2 (01:38→20:58)
[2022-01-13] MEDS: LINEZOLID 600MG/300ML IVPB (PRE-MIX) IV SCH ×2 (01:39→13:22)
[2022-01-13] MEDS: NS IV 1000 ML 1,000 ML IV SCH ×2 (01:41→16:55)
[2022-01-13] MEDS ORDERED: ASPI-1238 PO (02:32)
[2022-01-13] MEDS ORDERED: LISI40TA9 PO (02:33)
[2022-01-13] MEDS ORDERED: AMLO2.5T4 PO (03:10)
[2022-01-13] MEDS ORDERED: RT-ALBUINH IH (03:10)
[2022-01-13] MEDS ORDERED: GABA300C PO (03:10)
[2022-01-13] MEDS ORDERED: GLUC1AUT2 SQ (03:10)
[2022-01-13] MEDS ORDERED: ATOR40TA PO (03:10)
[2022-01-13] MEDS ORDERED: PANT40TA2 PO (03:37)
[2022-01-13] MEDS: PIPERACILLIN SODIUM/TAZOBACTAM 4.5 GM in NS (IVPB) 100 ML IV SCH ×3 (04:42→20:14)
[2022-01-13] MEDS: inSUlin ASPART (NovoLOG) 1 UNIT/0.01 ML (CHARGE PER UNIT) SC SCH ×5 (05:46→20:56)
[2022-01-13] MEDS ORDERED: INSU100I10 SQ (05:55)
[2022-01-13] MEDS ORDERED: INSU100I23 SQ (05:55)
[2022-01-13] MEDS ORDERED: GEMF600T PO (05:55)
--- NOTE | 2022-01-13 07:02 | History & Physical-Hospitalist ---
History of Present Illness HPI/Chief Complaint CC: Left leg/foot cellulitis HPI: This is a 56yoWM clinic patient of [facility] who has a h/o DM, CKD stage IV who presented to the [facility] ER with left leg and foot pain found to have cellulitis. Patient was placed on Zosyn and Zyvox (allergy to Vanc) and placed on DVT PPx with Hep due to creat elevation. Tetanus vaccine given since its been years. Later in the day he started having more pain and fever so CT stat ordered and labs repeated and Dr Campbell consulted to assure it was not necrotizing fascitis versus abscess. Source: patient, family Exam Limitations: no limitations Date Seen 01/13/22 Time Seen by a Provider: 10:30 Attending Physician Yeimy Iqbal Aprn PCP Admitting Physician: Taryn Israel DO Attending Physician: Taryn Israel DO Referring Physician Date of Admission Jan 13, 2022 at 00:40 Home Medications & Allergies Home Medications Reviewed patient Home Medication Reconciliation performed by pharmacy medication reconciliations breeder service technician and/or nursing. Patients Allergies have been reviewed. Allergies Allergies Coded Allergies vancomycin (Verified Allergy, Unknown, 03/30/21) cocaine (Unverified Adverse Reaction, Unknown, 11/13/21) Past Afpvsbu-Jmuiee-Cktgsy Hx Patient Social History Marrital Status: Employed/Student: unemployed Tobacco Use?: No Smoking Status: Never a Smoker Smokeless type used: Chew Smokeless Tobacco Frequency: Current Someday User Use of E-Cig and/or Vaping dev: No Substance use?: No Alcohol Use?: No Pt feels they are or have been: No Immunizations Up To Date First/Initial COVID19 Vaccinat: unvaccinated Second COVID19 Vaccination Mika: unvaccinated Tetanus Booster (TDap): Unknown Current Status Advance Directives: Unable to obtain Communicates: Verbally Primary Language: Portuguese Preferred Spoken Language: Portuguese Is interpretation needed?: No Implanted or Applied Medical D: None Past Medical History High Cholesterol, Hypertension Renal Failure Diabetes, Insulin dep Review of Systems Constitutional: see HPI, malaise, weakness EENTM: no symptoms reported Respiratory: no symptoms reported Cardiovascular: no symptoms reported Gastrointestinal: no symptoms reported Genitourinary: no symptoms reported Musculoskeletal: back pain, joint pain Skin: see HPI Psychiatric/Neurological: No Symptoms Reported All Other Systems Reviewed Negative Unless Noted: Yes Physical Exam Physical Exam Vital Signs Vital Signs - First Documented 01/12/22 01/12/22 22:13 23:09 Temp 36.7 Pulse 98 Resp 14 B/P (MAP) 143/83 (103) Pulse Ox 98 O2 Delivery Room Air Capillary Refill : Less Than 3 Seconds Height, Weight, BMI Height: '" Weight: lbs. oz. kg; 34.33 BMI Method: General Appearance: No Apparent Distress, Chronically ill, Obese Eyes: Right Eye Normal Inspection, Right Eye PERRL HEENT: PERRL/EOMI, Normal ENT Inspection, Pharynx Normal, Moist Mucous Membranes Neck: Full Range of Motion, Normal Inspection, Non Tender Respiratory: Chest Non Tender, Lungs Clear, Normal Breath Sounds, No Accessory Muscle Use, No Respiratory Distress Cardiovascular: Regular Rate, Rhythm, No Edema, No Gallop, No JVD, No Murmur, N ormal Peripheral Pulses Gastrointestinal: Normal Bowel Sounds, No Organomegaly, No Pulsatile Mass, Non Tender, Soft Back: Normal Inspection, No CVA Tenderness, No Vertebral Tenderness Extremity: Normal Capillary Refill, Normal Inspection, Normal Range of Motion, Non Tender, No Calf Tenderness, No Pedal Edema Neurologic/Psychiatric: Alert, Oriented x3, No Motor/Sensory Deficits, Normal Mood/Affect Skin: Normal Color, Warm/Dry, Rash (left leg and foot edematous but improved erythema) Lymphatic: No Adenopathy Results Results/Procedures Labs Laboratory Tests 01/12/22 21:40 01/13/22 12:34 01/13/22 18:25 Patient resulted labs reviewed. Assessment/Plan Admission Diagnosis Assessment: Left foot/leg cellulitis CKD stage IV DM HTN HLP Plan: IV abx Monitor pain CT stat Labs Dr Campbell Tetanus vaccine Admission Status: Inpatient Order (span 2 midnights) Reason for Inpatient Admission: cellulitis severe Diagnosis/Problems Diagnosis/Problems (1) Left leg cellulitis (2) Cellulitis of left lower extremity (3) Uncontrolled diabetes mellitus Status: Acute Qualifiers: Diabetes mellitus type: other specified (including KENNETH) Glycemic state: with hyperglycemia Qualified Codes: E13.65 - Other specified diabetes mellitus with hyperglycemia Clinical Quality Measures DVT/VTE Risk/Contraindication: Contraindications-Mechi: Other *list below* Other: cellulitis TARYN ISRAEL DO Jan 13, 2022 07:02
[2022-01-13] MEDS: DOCUSATE SODIUM 100 MG (COLACE) CAP PO SCH ×2 (08:11→20:57)
[2022-01-13] MEDS ORDERED: LINEZOLID IVPB 300 ML IV SCH (09:00)
[2022-01-13] MEDS ORDERED: RT-ALBUTEROL SULF 2.5 MG/3 ML PRE-MIX VIAL IH SCH (12:30)
[2022-01-13] MEDS ORDERED: TETANUS,DIPTH,PERTUSS P/F (BOOSTRIX) 0.5 ML VIAL IM ONE (12:30)
[2022-01-13 12:44] LABS: BASOPHILS % (AUTO) 0 % (0-10); EOSINOPHILS % (AUTO) 0 % (0-10); HEMATOCRIT 33 % (40-54); HEMOGLOBIN 11.5 g/dL (13.3-17.7); LYMPHOCYTES # (AUTO) 1.2 10^3/uL (1.0-4.0); LYMPHOCYTES % (AUTO) 10 % (12-44); MEAN CORPUSCULAR HEMOGLOBIN 29 pg (25-34); MEAN CORPUSCULAR HGB CONC 35 g/dL (32-36); MEAN CORPUSCULAR VOLUME 83 fL (80-99); MEAN PLATELET VOLUME 10.9 fL (9.0-12.2); MONOCYTES # (AUTO) 0.5 10^3/uL (0.0-1.0); MONOCYTES % (AUTO) 4 % (0-12); NEUTROPHILS % (AUTO) 85 % (42-75); PLATELET COUNT 183 10^3/uL (130-400); WHITE BLOOD COUNT 11.8 10^3/uL (4.3-11.0)
[2022-01-13 12:52] LABS: POTASSIUM 4.3 MMOL/L (3.6-5.0)
[2022-01-13 12:55] LABS: TOTAL PROTEIN 6.9 GM/DL (6.4-8.2)
[2022-01-13 12:57] LABS: BILIRUBIN,TOTAL 0.9 MG/DL (0.1-1.0)
[2022-01-13 12:59] LABS: CREATININE SERUM 3.32 MG/DL (0.60-1.30)
[2022-01-13] MEDS: LACTOBACILLUS ACIDOPHILUS (PROBIOTIC) CAPSULE PO SCH ×2 (13:22→17:09)
[2022-01-13] MEDS: RT-ALBUTEROL SULF 2.5 MG/3 ML PRE-MIX VIAL IH SCH ×3 (14:34→21:49)
[2022-01-13 18:32] LABS: BASOPHILS % (AUTO) 0 % (0-10); EOSINOPHILS % (AUTO) 0 % (0-10); HEMATOCRIT 32 % (40-54); HEMOGLOBIN 10.9 g/dL (13.3-17.7); LYMPHOCYTES # (AUTO) 0.9 10^3/uL (1.0-4.0); LYMPHOCYTES % (AUTO) 10 % (12-44); MEAN CORPUSCULAR HEMOGLOBIN 28 pg (25-34); MEAN CORPUSCULAR HGB CONC 35 g/dL (32-36); MEAN CORPUSCULAR VOLUME 82 fL (80-99); MONOCYTES # (AUTO) 0.4 10^3/uL (0.0-1.0); MONOCYTES % (AUTO) 4 % (0-12); NEUTROPHILS # (AUTO) 8.4 10^3/uL (1.8-7.8); NEUTROPHILS % (AUTO) 86 % (42-75); PLATELET COUNT 176 10^3/uL (130-400); WHITE BLOOD COUNT 9.8 10^3/uL (4.3-11.0)
[2022-01-13 18:45] LABS: ALBUMIN 2.9 GM/DL (3.2-4.5); POTASSIUM 3.6 MMOL/L (3.6-5.0)
[2022-01-13 18:46] LABS: CALCIUM 8.9 MG/DL (8.5-10.1)
[2022-01-13 18:48] LABS: TOTAL PROTEIN 6.7 GM/DL (6.4-8.2)
[2022-01-13 18:49] LABS: BILIRUBIN,TOTAL 0.8 MG/DL (0.1-1.0); ERYTHROCYTE SEDIMENTATION RATE > 140 MM/HR (0-30)
[2022-01-13 18:51] LABS: CREATININE SERUM 3.19 MG/DL (0.60-1.30)
--- NOTE | 2022-01-13 18:59 | Diagnostic Imaging Report ---
PROCEDURE: CT left lower extremity without contrast. TECHNIQUE: Multiple contiguous axial images were obtained through the left lower extremity without the use of intravenous contrast. Sagittal and coronal reformations were then performed. Auto Exposure Controls were utilized during the CT exam to meet ALARA standards for radiation dose reduction. INDICATION: Lower extremity abscess. COMPARISON: None available. FINDINGS: There is extensive motion in the foot. No fracture is seen in the left tibia or fibula. The distal left femur is also normal. There are vascular calcifications throughout the left lower extremity. There is subcutaneous stranding throughout the calf. No drainable fluid collection is seen. IMPRESSION: Stranding throughout the left lower extremity without drainable fluid collection. Dictated by: Dictated on workstation # [id number]
[2022-01-13] MEDS: GEMFIBROZIL 600 MG (LOPID) TAB PO SCH (20:56)
[2022-01-13] MEDS ORDERED: GABAPENTIN 300 MG (NEURONTIN) CAP PO SCH (21:00)
[2022-01-13] MEDS: MICONAZOLE NITRATE 2% CRM 30 GM TP SCH (23:05)
[2022-01-14] VITALS (8 sets, daily range): BP systolic 130–180; BP diastolic 70–90
[2022-01-14] MEDS: LINEZOLID 600MG/300ML IVPB (PRE-MIX) IV SCH ×2 (01:07→13:17)
[2022-01-14] MEDS: RT-ALBUTEROL SULF 2.5 MG/3 ML PRE-MIX VIAL IH SCH ×3 (04:16→10:40)
[2022-01-14] MEDS: PIPERACILLIN SODIUM/TAZOBACTAM 4.5 GM in NS (IVPB) 100 ML IV SCH ×3 (04:42→20:58)
[2022-01-14] MEDS: NS IV 1000 ML 1,000 ML IV SCH ×2 (04:42→20:58)
[2022-01-14] MEDS: inSUlin ASPART (NovoLOG) 1 UNIT/0.01 ML (CHARGE PER UNIT) SC SCH ×7 (05:38→20:36)
[2022-01-14] MEDS: HYDROmorphone 2 MG/ML VIAL (DILAUDID) IVP PRN ×5 (06:25→22:37)
--- NOTE | 2022-01-14 07:06 | Consultation - Surgery ---
JANAY MO 01/14/22 0706: History of Present Illness History of Present Illness Patient Consulted On(jose/time) 01/14/22 07:01 Date Seen by Provider: Jan 14, 2022 Time Seen by Provider: 06:18 Reason for Visit: Cellulitis History of Present Illness Mr. Jefferson is a 56 year old male with a past medical history of CKD IV, Type 2 diabetes, HTN, and HLD who presented to the ED in [place] on Friday for redness, swelling, and pain of his left lower extremity. He reports that the swelling and redness began on Friday morning and he went to the ED by Friday night and then was transferred to [facility]. He has a wound covered with a scab on the anterior aspect of his gibson. He says his pain has been progressively getting worse since it began. It has been constant. He reports associated dry heaving, nausea, fevers, and chills. He says medicine makes it better and walk ing makes it worse. He denies radiation of the pain past his knee but says his entire foot and calf hurt below the knee. He rates his pain as a 10/10. A CT was done that shows no evidence of abscess in his leg but there is diffuse stranding. Allergies and Home Medications Allergies Coded Allergies: vancomycin (Verified Allergy, Unknown, 03/30/21) cocaine (Unverified Adverse Reaction, Unknown, 11/13/21) Patient Home Medication List Acetaminophen (Tylenol Arthritis) 650 Mg Tablet.er, 1,300 MG PO DAILY, (Reported) Entered as Reported by: KLAUS MCKEON on 01/14/22 1211 Last Action: Reviewed Albuterol Sulfate (Proair Hfa) 1 Puff Puff, 2 PUFF IH Q4H, (Reported) Entered as Reported by: DASH VASQUEZ on 01/13/22 0310 Last Action: Reviewed Aspirin (Aspirin EC) 81 Mg Tablet.dr, 81 MG PO DAILY, (Reported) Entered as Reported by: DASH VASQUEZ on 01/13/22 0232 Last Action: Reviewed Docusate Sodium (Docusate Sodium) 100 Mg Capsule, 100 MG PO DAILY PRN for CONSTIPATION-1ST LINE, (Reported) Entered as Reported by: KLAUS MCKEON on 01/14/22 1209 Last Action: Reviewed Folic Acid/Multivit-Min/Lutein (Multi-Vitamin Gummies) 200 Mcg-137.5 Mcg Tab.chew, 1 EACH PO DAILY, (Reported) Entered as Reported by: KLAUS MCKEON on 01/14/22 1210 Last Action: Reviewed Gemfibrozil (Lopid) 600 Mg Tablet, 600 MG PO BID, (Reported) Entered as Reported by: DASH VASQUEZ on 01/13/22 0555 Last Action: Reviewed Glucagon (Gvoke Hypopen 2-Pack) 1 Mg/0.2 Ml Auto.injct, 1 MG SQ PRN, (Reported) Entered as Reported by: DASH VASQUEZ on 01/13/22 0310 Last Action: Reviewed Insulin Aspart (Novolog Flexpen) 100 Unit/Ml (3 Ml) Solution, 20 UNITS SC TIDWM, (Reported) Entered as Reported by: KLAUS MCKEON on 01/14/22 120 Last Action: Reviewed Insulin Glargine,Hum.rec.anlog (Basaglar Kwikpen U-100) 100 Unit/Ml (3 Ml) Insuln.pen, 34 UNIT SQ BID, (Reported) Entered as Reported by: KLAUS MCKEON on 01/14/22 120 Last Action: Reviewed Lisinopril (Lisinopril) 40 Mg Tablet, 40 MG PO DAILY, (Reported) Entered as Reported by: DASH VASQUEZ on 01/13/22 0233 Last Action: Reviewed Pantoprazole Sodium (Protonix) 40 Mg Tablet.dr, 40 MG PO DAILY, (Reported) Entered as Reported by: DASH VASQUEZ on 01/13/22 0337 Last Action: Reviewed Discontinued Medications Gemfibrozil (Gemfibrozil) 600 Mg Tablet, (Reported) Discontinued Reason: No Longer Taking Entered as Reported by: DEMI SAVAGE on 11/13/212225 Last Action: Discontinued Insulin Glargine,Hum.rec.anlog (Basaglar Kwikpen U-100) 100 Unit/Ml (3 Ml) Insuln.pen, (Reported) Discontinued Reason: No Longer Taking Entered as Reported by: DEMI SAVAGE on 11/13/212225 Last Action: Discontinued Pantoprazole Sodium (Pantoprazole Sodium) 40 Mg Tablet.dr, (Reported) Discontinued Reason: No Longer Taking Entered as Reported by: DEMI SAVAGE on 11/13/212225 Last Action: Discontinued Past Ofztxkz-Pzztzf-Wpgyqw Hx Patient Social History Smoking Status: Never a Smoker Type Used: Smokeless Tobacco (1 can of chew per month x 20 years) Alcohol Use?: No Substance type: Marijuana (2x per week) Have you traveled recently?: No Surgeries History of Surgeries: Yes (Skin graft on RLE) Respiratory History of Respiratory Disorde: No Cardiovascular History of Cardiac Disorders: Yes Cardiac Disorders: High Cholesterol, Hypertension Neurological History of Neurological Disord: No Genitourinary History of Genitourinary Disor: Yes Genitourinary Disorders: Renal Failure Gastrointestinal History of Gastrointestinal Di: No Musculoskeletal History of Musculoskeletal Dis: No Endocrine History of Endocrine Disorders: Yes Endocrine Disorders: Diabetes, Insulin dep HEENT History of HEENT Disorders: No Cancer History of Cancer: No Psychosocial History of Psychiatric Problem: No Integumentary History of Skin or Integumenta: No Family Medical History Significant Family History: Diabetes (Father), Other Conditions/Hx (HTN in mother and father) Review of Systems-General Constitutional: chills, fever, malaise EENTM: No blurred vision, No double vision Respiratory: No cough, No short of breath Cardiovascular: No chest pain, No palpitations Gastrointestinal: No abdominal pain; loss of appetite, nausea; No vomiting Musculoskeletal: No joint pain; muscle pain Skin: change in color, lesions Physical Exam-General Problems Physical Exam Vital Signs Vital Signs - First Documented 01/12/22 01/12/22 22:13 23:09 Temp 36.7 Pulse 98 Resp 14 B/P (MAP) 143/83 (103) Pulse Ox 98 O2 Delivery Room Air Capillary Refill : Less Than 3 Seconds General Appearance: WD/WN, no apparent distress HEENT: PERRL/EOMI; No pale conjunctivae (R), No pale conjunctivae (L) Neck: non-tender, supple Respiratory: chest non-tender, lungs clear, normal breath sounds, no respiratory distress, no accessory muscle use Cardiovascular: normal peripheral pulses, regular rate, rhythm, no murmur Peripheral Pulses: 2+ Dorsalis Pedis (R), 2+ Left Dors-Pedis (L), 2+ Radial Pulses (R), 2+ Radial Pulses (L) Gastrointestinal: non tender, soft; No distended, No guarding, No rebound Extremities: inflammation, pedal edema, other (Celluitis of LLE with swelling, erythema, and tenderness to palpation. Wound with a scab on anterior shins b/l) Neurologic/Psychiatric: alert, normal mood/affect, oriented x 3 Skin: warm/dry, other (Cellulitis LLE) Data Review Labs Laboratory Tests 01/13/22 11:45: Glucometer 228H 01/13/22 12:34: White Blood Count 11.8H, Red Blood Count 3.96L, Hemoglobin 11.5L, Hematocrit 33L , Mean Corpuscular Volume 83, Mean Corpuscular Hemoglobin 29, Mean Corpuscular Hemoglobin Concent 35, Red Cell Distribution Width 12.9, Platelet Count 183, Mean Platelet Volume 10.9, Immature Granulocyte % (Auto) 0, Neutrophils (%) (Auto) 85H, Lymphocytes (%) (Auto) 10L, Monocytes (%) (Auto) 4, Eosinophils (%) (Auto) 0, Basophils (%) (Auto) 0, Neutrophils # (Auto) 10.0H, Lymphocytes # (Auto) 1.2, Monocytes # (Auto) 0.5, Eosinophils # (Auto) 0.0, Basophils # (Auto) 0.0, Immature Granulocyte # (Auto) 0.0, Sodium Level 131L, Potassium Level 4.3, Chloride Level 96L, Carbon Dioxide Level 24, Anion Gap 11, Blood Urea Nitrogen 41H, Creatinine 3.32H, Estimat Glomerular Filtration Rate 21, BUN/Creatinine Ratio 12, Glucose Level 245H, Calcium Level 9.0, Corrected Calcium 9.8, Total Bilirubin 0.9, Aspartate Amino Transf (AST/SGOT) 12, Alanine Aminotransferase (ALT/SGPT) 11, Alkaline Phosphatase 56, Total Protein 6.9, Albumin 3.0L 01/13/22 16:02: Glucometer 331H 01/13/22 18:14: Glucometer 296H 01/13/22 18:25: White Blood Count 9.8, Red Blood Count 3.86L, Hemoglobin 10.9L, Hematocrit 32L, Mean Corpuscular Volume 82, Mean Corpuscular Hemoglobin 28, Mean Corpuscular Hemoglobin Concent 35, Red Cell Distribution Width 12.7, Platelet Count 176, Mean Platelet Volume 11.0, Immature Granulocyte % (Auto) 1, Neutrophils (%) (Au to) 86H, Lymphocytes (%) (Auto) 10L, Monocytes (%) (Auto) 4, Eosinophils (%) (Auto) 0, Basophils (%) (Auto) 0, Neutrophils # (Auto) 8.4H, Lymphocytes # (Auto) 0.9L, Monocytes # (Auto) 0.4, Eosinophils # (Auto) 0.0, Basophils # (Auto) 0.0, Immature Granulocyte # (Auto) 0.1, Erythrocyte Sedimentation Rate > 140H, Sodium Level 131L, Potassium Level 3.6, Chloride Level 95L, Carbon Dioxide Level 22, Anion Gap 14, Blood Urea Nitrogen 40H, Creatinine 3.19H, Estimat Glomerular Filtration Rate 22, BUN/Creatinine Ratio 13, Glucose Level 278H, Lactic Acid Level 1.40, Calcium Level 8.9, Corrected Calcium 9.8, Total Bilirubin 0.8, Aspartate Amino Transf (AST/SGOT) 14, Alanine Aminotransferase (ALT/SGPT) 11, Alkaline Phosphatase 53, Total Creatine Kinase 35, Total Protein 6.7, Albumin 2.9L 01/13/22 20:09: Glucometer 219H 01/14/22 05:34: Glucometer 145H Radiology ABBI: DARIO JEFFERSON MED REC#: [id number] PT STATUS: ADM IN : 1965 PHYSICIAN: MONTSERRAT BARNETT DO ADMIT DATE: 01/13/22 Signed Date of Exam:01/13/22 CT EXTREMITY LOWER LEFT WO PROCEDURE: CT left lower extremity without contrast. TECHNIQUE: Multiple contiguous axial images were obtained through the left lower extremity without the use of intravenous contrast. Sagittal and coronal reformations were then performed. Auto Exposure Controls were utilized during the CT exam to meet ALARA standards for radiation dose reduction. INDICATION: Lower extremity abscess. COMPARISON: None available. FINDINGS: There is extensive motion in the foot. No fracture is seen in the left tibia or fibula. The distal left femur is also normal. There are vascular calcifications throughout the left lower extremity. There is subcutaneous stranding throughout the calf. No drainable fluid collection is seen. IMPRESSION: Stranding throughout the left lower extremity without drainable fluid collection. Dictated by: Dictated on workstation # [id number] Dict: 01/13/22 185 Trans: 01/13/221933 [facility] [id number] Interpreted by: HAYDEN BARILLAS MD Electronically signed by: HAYDEN BARILLAS MD 01/13/221933 Assessment/Plan Assessment/Plan Assessment/Plan Cellulitis LLE with stranding seen on CT No evidence of abscess or crepitus on physical exam Hyponatremia CKD IV Type 2 Diabetes HTN HLD Pain control as needed Continue IV antibiotics No surgical intervention needed at this time. No obvious signs of abscess or drainage needed Monitor for any signs of worsening cellulitis Sodium replacement Clinical Quality Measures DVT/VTE Risk/Contraindication: Contraindications-Mechi: Other *list below* Other: cellulitis MORENA DURÁN DO 01/14/22 1437: History of Present Illness History of Present Illness Time Seen by Provider: 12:05 History of Present Illness Surgery asked to consult regarding cellulitis. HPI: pt presented to [place] with cellulitis of LLE, which progressively got worse since Friday. Pain was 10 out of 10. When I saw him this afternoon he was sitting in bed comfortable and had just eaten lunch. He states pain is better and he thinks the swelling has gone down. The redness has especially gone down; "it was my whole leg". Allergies and Home Medications Allergies Coded Allergies: vancomycin (Verified Allergy, Unknown, 03/30/21) cocaine (Unverified Adverse Reaction, Unknown, 11/13/21) Patient Home Medication List Home Medication List Reviewed: Yes Acetaminophen (Tylenol Arthritis) 650 Mg Tablet.er, 1,300 MG PO DAILY, (Reported) Entered as Reported by: KLAUS MCKEON on 01/14/22 1211 Last Action: Reviewed Albuterol Sulfate (Proair Hfa) 1 Puff Puff, 2 PUFF IH Q4H, (Reported) Entered as Reported by: DASH VASQUEZ on 01/13/22 0310 Last Action: Reviewed Aspirin (Aspirin EC) 81 Mg Tablet.dr, 81 MG PO DAILY, (Reported) Entered as Reported by: DASH VASQUEZ on 01/13/22 0232 Last Action: Reviewed Docusate Sodium (Docusate Sodium) 100 Mg Capsule, 100 MG PO DAILY PRN for CONSTIPATION-1ST LINE, (Reported) Entered as Reported by: KLAUS MCKEON on 01/14/22 1209 Last Action: Reviewed Folic Acid/Multivit-Min/Lutein (Multi-Vitamin Gummies) 200 Mcg-137.5 Mcg Tab.chew, 1 EACH PO DAILY, (Reported) Entered as Reported by: KLAUS MCKEON on 01/14/22 1210 Last Action: Reviewed Gemfibrozil (Lopid) 600 Mg Tablet, 600 MG PO BID, (Reported) Entered as Reported by: DASH VASQUEZ on 01/13/22 0555 Last Action: Reviewed Glucagon (Gvoke Hypopen 2-Pack) 1 Mg/0.2 Ml Auto.injct, 1 MG SQ PRN, (Reported) Entered as Reported by: DASH VASQUEZ on 01/13/22 0310 Last Action: Reviewed Insulin Aspart (Novolog Flexpen) 100 Unit/Ml (3 Ml) Solution, 20 UNITS SC TIDWM, (Reported) Entered as Reported by: KLAUS MCKEON on 01/14/22 120 Last Action: Reviewed Insulin Glargine,Hum.rec.anlog (Basaglar Kwikpen U-100) 100 Unit/Ml (3 Ml) Insuln.pen, 34 UNIT SQ BID, (Reported) Entered as Reported by: KLAUS MCKEON on 01/14/22 120 Last Action: Reviewed Lisinopril (Lisinopril) 40 Mg Tablet, 40 MG PO DAILY, (Reported) Entered as Reported by: DASH VASQUEZ on 01/13/22 0233 Last Action: Reviewed Pantoprazole Sodium (Protonix) 40 Mg Tablet.dr, 40 MG PO DAILY, (Reported) Entered as Reported by: DASH VASQUEZ on 01/13/22 0337 Last Action: Reviewed Discontinued Medications Gemfibrozil (Gemfibrozil) 600 Mg Tablet, (Reported) Discontinued Reason: No Longer Taking Entered as Reported by: DEMI SAVAGE on 11/13/212225 Last Action: Discontinued Insulin Glargine,Hum.rec.anlog (Basaglar Kwikpen U-100) 100 Unit/Ml (3 Ml) Insuln.pen, (Reported) Discontinued Reason: No Longer Taking Entered as Reported by: DEMI SAVAGE on 11/13/212225 Last Action: Discontinued Pantoprazole Sodium (Pantoprazole Sodium) 40 Mg Tablet.dr, (Reported) Discontinued Reason: No Longer Taking Entered as Reported by: DEMI SAVAGE on 11/13/212225 Last Action: Discontinued Past Rwbzsye-Diwicr-Yuncia Hx Patient Social History Smoking Status: Never a Smoker Type Used: Smokeless Tobacco (1 can of chew per month x 20 years) Substance type: Marijuana (2x per week) Surgeries History of Surgeries: Yes (Skin graft on RLE) Respiratory History of Respiratory Disorde: No Cardiovascular History of Cardiac Disorders: Yes Neurological History of Neurological Disord: No Genitourinary History of Genitourinary Disor: Yes Gastrointestinal History of Gastrointestinal Di: No Musculoskeletal History of Musculoskeletal Dis: No Endocrine History of Endocrine Disorders: Yes Endocrine Disorders: Diabetes, Insulin dep HEENT History of HEENT Disorders: No Cancer History of Cancer: No Psychosocial History of Psychiatric Problem: No Integumentary History of Skin or Integumenta: No Family Medical History Significant Family History: Diabetes (Father), Other Conditions/Hx (HTN in mother and father) Review of Systems-General Constitutional: chills, fever, malaise EENTM: No blurred vision, No double vision Respiratory: No cough, No short of breath Cardiovascular: No chest pain, No palpitations Gastrointestinal: No abdominal pain; loss of appetite, nausea; No vomiting Musculoskeletal: No joint pain; muscle pain, other (leg and foot pain) Skin: change in color, lesions Psychiatric/Neurological: Denies Anxiety, Denies Depressed, Denies Seizure, Denies Tremors Physical Exam-General Problems Physical Exam General Appearance: WD/WN, no apparent distress Eyes: Bilateral Eye PERRL, Bilateral Eye EOMI HEENT: pharynx normal; No pale conjunctivae (R), No pale conjunctivae (L) Neck: non-tender, supple Respiratory: chest non-tender, lungs clear, normal breath sounds, no respiratory distress, no accessory muscle use Cardiovascular: regular rate, rhythm, no murmur Gastrointestinal: non tender, soft; No distended, No guarding, No rebound Extremities: inflammation, pedal edema, other (Celluitis of LLE with swelling, erythema, and tenderness to palpation. Wounds with a scabs (multiple) on anterior shins b/l. Erythema and swelling mostly limited to left foot and just above ankle) Neurologic/Psychiatric: alert, normal mood/affect, oriented x 3 Assessment/Plan Assessment/Plan Assessment/Plan Cellulitis LLE with stranding seen on CT No evidence of abscess or crepitus on physical exam Hyponatremia CKD IV Type 2 Diabetes HTN HLD Pain control as needed Continue IV antibiotics No surgical intervention needed at this time. No obvious signs of abscess or drainage needed Monitor for any signs of worsening cellulitis Sodium replacement Supervisory-Addendum Brief Verification & Attestation Participated in pt care: history, MDM, physical Personally performed: exam, history, MDM, supervision of care Care discussed with: Medical Student Procedures: n/a Verification and Attestation of Medical Student E/M Service A medical student performed and documented this service. I then reviewed and verified all information documented by the medical student and made modifications to such information, when appropriate. I personally performed a physical exam, medical decision making and then discussed any differences between the notes and made revisions as necessary to create one note. Morena Durán , 01/14/22 , 14:37 JANAY MO Jan 14, 2022 07:06 MORENA DURÁN DO Jan 14, 2022 14:37
[2022-01-14] MEDS: GEMFIBROZIL 600 MG (LOPID) TAB PO SCH ×2 (08:22→20:59)
[2022-01-14] MEDS: amLODIPine 2.5MG (NORVASC) TAB PO SCH (08:22)
[2022-01-14] MEDS: PANTOPRAZOLE 40 MG (PROTONIX) TAB PO SCH (08:23)
[2022-01-14] MEDS: DOCUSATE SODIUM 100 MG (COLACE) CAP PO SCH ×2 (08:23→21:00)
[2022-01-14] MEDS: ASPIRIN E.C. 81 MG (ECOTRIN) TAB PO SCH (08:23)
[2022-01-14] MEDS: LACTOBACILLUS ACIDOPHILUS (PROBIOTIC) CAPSULE PO SCH ×3 (08:23→16:26)
[2022-01-14] MEDS: MICONAZOLE NITRATE 2% CRM 30 GM TP SCH ×2 (08:24→21:00)
[2022-01-14 08:25] LABS: ALBUMIN 2.9 GM/DL (3.2-4.5); BILIRUBIN,TOTAL 0.6 MG/DL (0.1-1.0); CALCIUM 8.9 MG/DL (8.5-10.1); CREATININE SERUM 2.74 MG/DL (0.60-1.30); POTASSIUM 3.9 MMOL/L (3.6-5.0); TOTAL PROTEIN 6.9 GM/DL (6.4-8.2)
[2022-01-14 08:47] LABS: BASOPHILS % (AUTO) 1 % (0-10); EOSINOPHILS # (AUTO) 0.1 10^3/uL (0.0-0.3); EOSINOPHILS % (AUTO) 1 % (0-10); HEMATOCRIT 34 % (40-54); HEMOGLOBIN 11.7 g/dL (13.3-17.7); LYMPHOCYTES # (AUTO) 1.2 10^3/uL (1.0-4.0); LYMPHOCYTES % (AUTO) 14 % (12-44); MEAN CORPUSCULAR HEMOGLOBIN 28 pg (25-34); MEAN CORPUSCULAR HGB CONC 34 g/dL (32-36); MEAN CORPUSCULAR VOLUME 83 fL (80-99); MEAN PLATELET VOLUME 10.8 fL (9.0-12.2); MONOCYTES # (AUTO) 0.4 10^3/uL (0.0-1.0); MONOCYTES % (AUTO) 5 % (0-12); NEUTROPHILS # (AUTO) 6.5 10^3/uL (1.8-7.8); NEUTROPHILS % (AUTO) 78 % (42-75); PLATELET COUNT 202 10^3/uL (130-400); WHITE BLOOD COUNT 8.3 10^3/uL (4.3-11.0)
--- NOTE | 2022-01-14 11:10 | Progress Note - Hospitalist ---
SERGEY RAMOS MED STUDENT 01/14/22 1110: Subjective HPI/CC On Admission Date Seen by Provider: Jan 14, 2022 Time Seen by Provider: 08:00 CC: Left leg/foot cellulitis HPI: This is a 56yoWM clinic patient of [facility] who has a h/o DM, CKD stage IV who presented to the [facility] ER with left leg and foot pain found to have cellulitis. Patient was placed on Zosyn and Zyvox (allergy to Vanc) and placed on DVT PPx with Hep due to creat elevation. Tetanus vaccine given since its been years. Later in the day he started having more pain and fever so CT stat ordered and labs repeated and Dr Campbell consulted to assure it was not necrotizing fascitis versus abscess. Subjective/Events-last exam Pt lying in bed comfortably this morning. Pt reports he is feeling better now that his pain is better controlled. Pt and S/O are unsure whether his swelling and redness are any better than the previous day. Review of Systems General: No Chills, No Fatigue HEENT: No Head Aches, No Visual Changes Pulmonary: No Dyspnea, No Cough Cardiovascular: No: Chest Pain, Palpitations Gastrointestinal: No: Nausea, Vomiting Genitourinary: No Dysuria, No Frequency Musculoskeletal: leg pain (LLE) Neurological: No: Weakness, Numbness Focused Exam Lactate Level 01/12/22 21:40: Lactic Acid Level 1.19 01/13/22 18:25: Lactic Acid Level 1.40 Objective Exam Vital Signs Vital Signs Date Time Temp Pulse Resp B/P (MAP) Pulse Ox O2 Delivery O2 Flow Rate FiO2 01/14/22 09:11 133/78 (96) 01/14/22 07:50 36.7 83 20 95 Room Air 01/14/22 07:09 0.00 Capillary Refill : Less Than 3 Seconds General Appearance: No Apparent Distress, WD/WN HEENT: PERRL/EOMI, TMs Normal Neck: Full Range of Motion, Normal Inspection Respiratory: Chest Non Tender, Lungs Clear, Normal Breath Sounds, No Accessory Muscle Use, No Respiratory Distress Cardiovascular: Regular Rate, Rhythm, No Murmur Gastrointestinal: Normal Bowel Sounds, Non Tender, Soft Back: Normal Inspection, No CVA Tenderness Extremity: Other (LLE erythema and edema with well healing lateral gibson laceration) Neurologic/Psychiatric: Alert, Oriented x3 Skin: Normal Color, Warm/Dry Lymphatic: No Adenopathy Results/Procedures Lab Laboratory Tests 01/13/22 12:34 01/13/22 18:25 01/14/22 06:58 01/14/22 08:38 Patient resulted labs reviewed. Assessment/Plan Assessment and Plan Assess & Plan/Chief Complaint LLE Cellulitis CKD IV Anemia Hyponatremia DM HTN HLD LLE Cellulitis -Zosyn and Linezolid -Allergy to Vanc -Heparin -Elevate legs when in bed and ambulate daily -oxycodone 5mg q4 for pain -Gen surg consulted, no need for surgical intervention at this time CKD IV -NaCl at 70mls/hr -Continue to monitor BUN and Cr Anemia -Likely dilutional Hyponatremia -Stable, will continue to monitor DM -SSI HTN -Stable HLD Diet: Regular DVT prophylaxis: ambulation, on heparin Disposition: Pt likely to stay one more day to allow good tissue perfusion of antibiotics. Will d/c when medically stable. Clinical Quality Measures DVT/VTE Risk/Contraindication: Contraindications-Mechi: Other *list below* Other: cellulitis TARYN BARNETT DO 01/15/22 0518: Subjective Subjective/Events-last exam Pt has improved left leg Less pain Less erythema and edema Will have nurses set the leg on 4 pillows to decrease edema CT scan showed no abscess or necrotizing fasciitis Labs are normal today, white count He does have a nephrology appt on Creatinine was 3.5 Assessment/Plan Assessment and Plan Assess & Plan/Chief Complaint Continue IV abx Monitor closely Supervisory-Addendum Brief Verification & Attestation Participated in pt care: history, MDM, physical Personally performed: exam, history, MDM, supervision of care Care discussed with: Medical Student Procedures: n/a Results interpretation: Verified all documentation Verification and Attestation of Medical Student E/M Service A medical student performed and documented this service in my presence. I reviewed and verified all information documented by the medical student and made modifications to such information, when appropriate. I personally performed the physical exam and medical decision making. Taryn Barnett, Jan 15, 2022,05:18 SERGEY RAMOS MED STUDENT Jan 14, 2022 11:10 TARYN BARNETT DO Jan 15, 2022 05:18
[2022-01-14] MEDS ORDERED: INSU100I34 SQ (12:08)
[2022-01-14] MEDS ORDERED: DOCU100C37 PO (12:09)
[2022-01-14] MEDS ORDERED: INSU100I14 SC (12:09)
[2022-01-14] MEDS ORDERED: FOLI-88 PO (12:10)
[2022-01-14] MEDS ORDERED: ACET-2650 PO (12:11)
[2022-01-14] MEDS ORDERED: RT-ALBUTEROL SULF 2.5 MG/3 ML PRE-MIX VIAL IH PRN (14:00)
[2022-01-14] MEDS: cloNIDine 0.1 MG (CATAPRES) TAB PO PRN (16:26)
[2022-01-14] MEDS: GABAPENTIN 300 MG (NEURONTIN) CAP PO SCH (20:59)
[2022-01-15] VITALS (8 sets, daily range): BP systolic 148–184; BP diastolic 72–95
[2022-01-15] MEDS: HYDROmorphone 2 MG/ML VIAL (DILAUDID) IVP PRN (01:58)
[2022-01-15] MEDS: LINEZOLID 600MG/300ML IVPB (PRE-MIX) IV SCH ×2 (01:58→12:36)
[2022-01-15] MEDS: inSUlin ASPART (NovoLOG) 1 UNIT/0.01 ML (CHARGE PER UNIT) SC SCH ×7 (05:01→20:20)
[2022-01-15] MEDS: PIPERACILLIN SODIUM/TAZOBACTAM 4.5 GM in NS (IVPB) 100 ML IV SCH ×3 (05:05→19:48)
[2022-01-15 05:33] LABS: BASOPHILS # (AUTO) 0.1 10^3/uL (0.0-0.1); BASOPHILS % (AUTO) 1 % (0-10); EOSINOPHILS # (AUTO) 0.2 10^3/uL (0.0-0.3); EOSINOPHILS % (AUTO) 3 % (0-10); HEMATOCRIT 34 % (40-54); HEMOGLOBIN 11.2 g/dL (13.3-17.7); LYMPHOCYTES # (AUTO) 1.5 10^3/uL (1.0-4.0); LYMPHOCYTES % (AUTO) 21 % (12-44); MEAN CORPUSCULAR HEMOGLOBIN 28 pg (25-34); MEAN CORPUSCULAR HGB CONC 33 g/dL (32-36); MEAN CORPUSCULAR VOLUME 84 fL (80-99); MEAN PLATELET VOLUME 10.7 fL (9.0-12.2); MONOCYTES # (AUTO) 0.4 10^3/uL (0.0-1.0); MONOCYTES % (AUTO) 5 % (0-12); NEUTROPHILS # (AUTO) 4.7 10^3/uL (1.8-7.8); NEUTROPHILS % (AUTO) 69 % (42-75); PLATELET COUNT 235 10^3/uL (130-400); WHITE BLOOD COUNT 6.8 10^3/uL (4.3-11.0)
[2022-01-15 05:43] LABS: POTASSIUM 3.5 MMOL/L (3.6-5.0)
[2022-01-15 05:47] LABS: BILIRUBIN,TOTAL 0.5 MG/DL (0.1-1.0)
[2022-01-15 05:48] LABS: CREATININE SERUM 2.69 MG/DL (0.60-1.30)
--- NOTE | 2022-01-15 07:55 | Progress Note - Surgery ---
JANAY MO 01/15/22 0755: Subjective Date Seen by a Provider: Jan 15, 2022 Time Seen by a Provider: 07:14 Subjective/Events-last exam Mr. Funes is being followed for cellulitis of his left lower extremity. This morning he reports that the redness in his leg has gone down along with the swelling. He also reports that his pain is a 3/10 today down from a 10/10 yesterday. He said he had an episode of nausea last night. Nursing reports a low blood sugar of 34 at 1610 yesterday. He has no other concerns or complaints this morning. Review of Systems General: No Chills, No Fatigue HEENT: No Head Aches, No Visual Changes Pulmonary: No Dyspnea, No Cough Cardiovascular: No: Chest Pain, Palpitations Gastrointestinal: Nausea; No: Vomiting, Abdominal Pain Musculoskeletal: leg pain, foot pain Focused Exam Lactate Level 01/12/22 21:40: Lactic Acid Level 1.19 01/13/22 18:25: Lactic Acid Level 1.40 Objective Exam Vital Signs Date Time Temp Pulse Resp B/P (MAP) Pulse Ox O2 Delivery O2 Flow Rate FiO2 01/15/22 07:32 Room Air 01/15/22 04:37 36.7 81 20 158/90 (112) 96 Room Air 01/15/22 02:21 36.7 83 20 156/72 (100) 97 Room Air 01/14/22 21:00 Room Air 01/14/22 19:00 36.5 77 20 130/70 (90) 96 Room Air 01/14/22 18:57 130/70 (90) 01/14/22 18:00 170/90 (116) 01/14/22 16:46 36.2 90 17 180/70 (106) 91 Room Air 01/14/22 11:10 36.8 76 18 158/87 (110) 95 Room Air 01/14/22 09:11 133/78 (96) I & O 01/15/22 07:00 Intake Total 2940 ml Output Total 450 ml Balance 2490 ml Capillary Refill : Less Than 3 Seconds General Appearance: No Apparent Distress, WD/WN HEENT: PERRL/EOMI, Moist Mucous Membranes Neck: Non Tender, Supple Respiratory: Chest Non Tender, Lungs Clear, Normal Breath Sounds, No Accessory Muscle Use, No Respiratory Distress Cardiovascular: Regular Rate, Rhythm, No Murmur, Normal Peripheral Pulses Peripheral Pulses: 2+ Dorsalis Pedis (R), 2+ Left Dors-Pedis (L), 2+ Radial Pulses (R), 2+ Radial Pulses (L) Gastrointestinal: non tender, soft; No distended, No guarding, No rebound Extremity: Calf Tenderness, Inflammation, Pedal Edema, Other (LLE erythema and edema with well healing anterior gibson lesions b/l. Swelling and erythema decreased in LLE today compared to yesterday) Neurologic/Psychiatric: Alert, Oriented x3 Skin: Warm/Dry, Erythema (LLE) Results Lab Laboratory Tests 01/14/22 08:38: White Blood Count 8.3, Red Blood Count 4.12L, Hemoglobin 11.7L, Hematocrit 34L, Mean Corpuscular Volume 83, Mean Corpuscular Hemoglobin 28, Mean Corpuscular Hemoglobin Concent 34, Red Cell Distribution Width 12.8, Platelet Count 202, Mean Platelet Volume 10.8, Immature Granulocyte % (Auto) 1, Neutrophils (%) (Auto) 78H, Lymphocytes (%) (Auto) 14, Monocytes (%) (Auto) 5, Eosinophils (%) (Auto) 1, Basophils (%) (Auto) 1, Neutrophils # (Auto) 6.5, Lymphocytes # (Auto) 1.2, Monocytes # (Auto) 0.4, Eosinophils # (Auto) 0.1, Basophils # (Auto) 0.0, Immature Granulocyte # (Auto) 0.1 01/14/22 11:07: Glucometer 104 01/14/22 16:13: Glucometer 34*L 01/14/22 16:41: Glucometer 50*L 01/14/22 17:16: Glucometer 80 01/15/22 04:36: Glucometer 162H 01/15/22 05:08: White Blood Count 6.8, Red Blood Count 4.02L, Hemoglobin 11.2L, Hematocrit 34L, Mean Corpuscular Volume 84, Mean Corpuscular Hemoglobin 28, Mean Corpuscular Hemoglobin Concent 33, Red Cell Distribution Width 12.9, Platelet Count 235, Mean Platelet Volume 10.7, Immature Granulocyte % (Auto) 1, Neutrophils (%) (Auto) 69, Lymphocytes (%) (Auto) 21, Monocytes (%) (Auto) 5, Eosinophils (%) (Auto) 3, Basophils (%) (Auto) 1, Neutrophils # (Auto) 4.7, Lymphocytes # (Auto) 1.5, Monocytes # (Auto) 0.4, Eosinophils # (Auto) 0.2, Basophils # (Auto) 0.1, Immature Granulocyte # (Auto) 0.1, Sodium Level 135, Potassium Level 3.5L, Chloride Level 97L, Carbon Dioxide Level 24, Anion Gap 14, Blood Urea Nitrogen 31H, Creatinine 2.69H, Estimat Glomerular Filtration Rate 27, BUN/Creatinine Ratio 12, Glucose Level 161H, Calcium Level 9.0, Corrected Calcium 9.8, Total Bilirubin 0.5, Aspartate Amino Transf (AST/SGOT) 12, Alanine Aminotransferase (ALT/SGPT) 11, Alkaline Phosphatase 55, Total Protein 7.0, Albumin 3.0L Microbiology 01/12/22 Blood Culture - Preliminary, Resulted No growth Assessment/Plan Assessment/Plan Assessment/Plan Cellulitis LLE with stranding seen on CT No evidence of abscess or crepitus on physical exam Hyponatremia CKD IV BUN and Cr trending down Type 2 Diabetes HTN HLD Pain control as needed Continue IV antibiotics No surgical intervention needed at this time. No obvious signs of abscess or drainage needed Monitor for any signs of worsening cellulitis Patient's pain, swelling, and erythema improved compared to yesterday. Continue current management. Clinical Quality Measures DVT/VTE Risk/Contraindication: Contraindications-Mechi: Other *list below* Other: cellulitis DARENDERRELLMORENA DO 01/15/22 1452: Subjective Time Seen by a Provider: 11:36 Subjective/Events-last exam Pt seen and examined, he states his foot is getting better; pain less, swelling down and redness less. Review of Systems General: No Chills Pulmonary: No Dyspnea, No Cough Cardiovascular: No: Chest Pain, Palpitations Gastrointestinal: Nausea; No: Vomiting, Abdominal Pain Musculoskeletal: leg pain, foot pain Objective Exam General Appearance: No Apparent Distress, WD/WN Respiratory: Lungs Clear, Normal Breath Sounds, No Accessory Muscle Use, No Respiratory Distress Cardiovascular: Regular Rate, Rhythm, No Murmur Gastrointestinal: non tender, soft Extremity: Calf Tenderness, Inflammation, Pedal Edema, Other (LLE erythema and edema with well healing anterior gibson lesions b/l. Swelling and erythema decreased in LLE today compared to yesterday, toes not red today nor is bottom of foot) Assessment/Plan Assessment/Plan Assessment/Plan Cellulitis LLE with stranding seen on CT No evidence of abscess or crepitus on physical exam Hyponatremia CKD IV BUN and Cr trending down Type 2 Diabetes HTN HLD Pain control as needed Continue IV antibiotics No surgical intervention needed at this time. No obvious signs of abscess or drainage needed Monitor for any signs of worsening cellulitis Patient's pain, swelling, and erythema improved compared to yesterday. Continue current management. Supervisory-Addendum Brief Verification & Attestation Participated in pt care: history, MDM, physical Personally performed: exam, history, MDM, supervision of care Care discussed with: Medical Student Procedures: n/a Verification and Attestation of Medical Student E/M Service A medical student performed and documented this service. I then reviewed and verified all information documented by the medical student and made modifications to such information, when appropriate. I personally performed a physical exam, medical decision making and then discussed any differences between the notes and made revisions as necessary to create one note. Morena Durán , 01/15/22 , 14:52 JANAY MO Jan 15, 2022 07:55 MORENA DURÁN DO Jan 15, 2022 14:52
[2022-01-15] MEDS: PANTOPRAZOLE 40 MG (PROTONIX) TAB PO SCH (08:26)
[2022-01-15] MEDS: DOCUSATE SODIUM 100 MG (COLACE) CAP PO SCH ×2 (08:26→20:20)
[2022-01-15] MEDS: ASPIRIN E.C. 81 MG (ECOTRIN) TAB PO SCH (08:26)
[2022-01-15] MEDS: LACTOBACILLUS ACIDOPHILUS (PROBIOTIC) CAPSULE PO SCH ×3 (08:26→17:17)
[2022-01-15] MEDS: amLODIPine 2.5MG (NORVASC) TAB PO SCH (08:26)
[2022-01-15] MEDS: GEMFIBROZIL 600 MG (LOPID) TAB PO SCH ×2 (08:37→20:16)
[2022-01-15] MEDS ORDERED: KCL 20 MEQ TAB (K-DUR) PO ONE (09:45)
--- NOTE | 2022-01-15 09:55 | Progress Note - Hospitalist ---
SERGEY RAMOS A MED STUDENT 01/15/22 0955: Subjective HPI/CC On Admission Date Seen by Provider: Jan 15, 2022 Time Seen by Provider: 08:00 CC: Left leg/foot cellulitis HPI: This is a 56yoWM clinic patient of [facility] who has a h/o DM, CKD stage IV who presented to the [facility] ER with left leg and foot pain found to have cellulitis. Patient was placed on Zosyn and Zyvox (allergy to Vanc) and placed on DVT PPx with Hep due to creat elevation. Tetanus vaccine given since its been years. Later in the day he started having more pain and fever so CT stat ordered and labs repeated and Dr Campbell consulted to assure it was not necrotizing fascitis versus abscess. Subjective/Events-last exam Pt lying in bed with legs elevated this morning. Pt reports no pain in his LLE and states he feels it is getting better. Pt states he has had nausea for the last day d/t eating peanut butter yesterday. Pt states this happens every time he has peanut butter. Advised pt he has zofran ordered and just needs to ask for it when he needs it. Pt inquired whether he was on his protonix here in the hospital, since he takes those daily at home. Advised pt that he is on his protonix here. Pt had low blood sugar yesterday evening, so novolog is being held. Review of Systems General: No Chills, No Fatigue HEENT: No Head Aches, No Visual Changes Pulmonary: No Dyspnea, No Cough Cardiovascular: No: Chest Pain, Palpitations Gastrointestinal: No: Nausea, Vomiting Genitourinary: No Dysuria, No Frequency Musculoskeletal: No: neck pain, shoulder pain, leg pain Neurological: No: Weakness, Numbness Focused Exam Lactate Level 01/12/22 21:40: Lactic Acid Level 1.19 01/13/22 18:25: Lactic Acid Level 1.40 Objective Exam Vital Signs Vital Signs Date Time Temp Pulse Resp B/P (MAP) Pulse Ox O2 Delivery O2 Flow Rate FiO2 01/15/22 08:06 36.7 78 18 150/95 (113) 96 Room Air 01/14/22 07:09 0.00 Capillary Refill : Less Than 3 Seconds General Appearance: No Apparent Distress, WD/WN HEENT: PERRL/EOMI, Pharynx Normal Neck: Full Range of Motion, Non Tender Respiratory: Chest Non Tender, Lungs Clear, Normal Breath Sounds Cardiovascular: Regular Rate, Rhythm, No Murmur Gastrointestinal: Normal Bowel Sounds, Non Tender, Soft Extremity: Pedal Edema (left 2+), Other (LLE erythema and edema improved, erythema and edema of left foot with 2+ pitting edema, left gibson healing wound c/d/i) Neurologic/Psychiatric: Alert, Oriented x3 Skin: Normal Color, Warm/Dry Lymphatic: No Adenopathy Results/Procedures Lab Laboratory Tests 01/15/22 05:08 Patient resulted labs reviewed. Imaging: Reviewed Imaging Report Assessment/Plan Assessment and Plan Assess & Plan/Chief Complaint LLE Cellulitis CKD IV Anemia Hyponatremia DM HTN HLD LLE Cellulitis -Zosyn and Linezolid -Allergy to Vanc -Heparin -Elevate legs when in bed and ambulate daily -oxycodone 5mg q4 for pain -Gen surg consulted, no need for surgical intervention at this time -Wound care consult for left gibson wound-likely source of cellulitis CKD IV -NaCl at 70mls/hr -Continue to monitor BUN and Cr- improving 31 and 2.69 today -Pt has appt with metallurgical analyst on Anemia -Likely dilutional Hyponatremia -Stable, will continue to monitor Hypokalemia -K+ protocol DM -Continue levemir -Hold novolog for hypoglycemia HTN -Stable HLD Diet: Regular DVT prophylaxis: ambulation, on heparin Disposition: Pt likely to stay one more day to allow good tissue perfusion of antibiotics. Wound care consulted. Will d/c when medically stable, likely tomorrow. Clinical Quality Measures DVT/VTE Risk/Contraindication: Contraindications-Mechi: Other *list below* Other: cellulitis TARYN BARNETT DO 01/16/22 0602: Subjective Subjective/Events-last exam Improved status Leg improved Review of Systems Musculoskeletal: leg pain Objective Exam General Appearance: No Apparent Distress, WD/WN, Chronically ill Respiratory: Lungs Clear, Normal Breath Sounds Cardiovascular: Regular Rate, Rhythm Extremity: Pedal Edema (left 2+), Other (LLE erythema and edema improved, erythema and edema of left foot with 2+ pitting edema, left gibson healing wound c/d/i) Neurologic/Psychiatric: Alert, Oriented x3 Assessment/Plan Assessment and Plan Assess & Plan/Chief Complaint Wound care IV abx Supervisory-Addendum Brief Verification & Attestation Participated in pt care: history, MDM, physical Personally performed: exam, history, MDM, supervision of care Care discussed with: Medical Student Procedures: n/a Results interpretation: Verified all documentation Verification and Attestation of Medical Student E/M Service A medical student performed and documented this service in my presence. I reviewed and verified all information documented by the medical student and made modifications to such information, when appropriate. I personally performed the physical exam and medical decision making. Taryn Barnett, Jan 16, 2022,06:01 SERGEY RAMOS MED STUDENT Jan 15, 2022 09:55 TARYN BARNETT DO Jan 16, 2022 06:02
--- NOTE | 2022-01-15 12:26 | Wound Care Assessment ---
Wound Care Assessment Date Seen by Provider: Jan 15, 2022 Time Seen by Provider: 11:30 Chief Complaint LLE wound HPI This 56 year old gentleman was admitted to the hospital from [facility] for cellulitis of LLE. He does have poorly controlled DM2 (last A1C per caregiver 12.2) and a h/o ulcerations on feet and leg. He notes that he began noticing swelling and redness on Friday which prompted him to seek medical care and he was subsequently admitted. He notes great improvement in redness, swelling and pain since initiation of antibiotics (Zosyn and Linezolid). He also has a long h/o CKD (stage 4) and is under the care of nephrology (appointment scheduled for this week). He does report poor appetite with weight loss recently as well. Albumin is low and he has already initiated protein supplementation at home. He did have imaging with CT and plain films on admit without evidence of osteomyelitis. Past Medical History: Admits Diabetes Type II CKD stage 4, lymphedema, PEM, weight loss, cellulitis Smoking Status: Never a Smoker (chewing tobacco) Recreational Drug Use: No Alcohol Use: Denies Use Review of Systems General: Other (Obesity) Exam Vital Signs Date Time Temp Pulse Resp B/P (MAP) Pulse Ox O2 Delivery O2 Flow Rate FiO2 01/15/22 11:48 36.7 79 18 157/78 (104) 97 Room Air 01/14/22 07:09 0.00 Capillary Refill : Less Than 3 Seconds General Appearance: obese HEENT: other (normal hearing) Neck: full range of motion Respiratory: no respiratory distress, no accessory muscle use Extremities: pedal edema (3+ edema to mid calf) Neurologic/Psychiatric: alert, normal mood/affect, oriented x 3 Skin: warm/dry Skin Character: erythema (LLE (foot/ankle)) Wound assessment: 0.6x0.6x0.1cm. The epithelialization is none. There is no tunneling or undermining. Drainage is none. Granulation is small and pink. Necrotic is medium and eschar. The margins show epibole. Results Laboratory Tests 01/14/22 16:13: Glucometer 34*L 01/14/22 16:41: Glucometer 50*L 01/14/22 17:16: Glucometer 80 01/14/22 20:34: Glucometer 167H 01/15/22 04:36: Glucometer 162H 01/15/22 05:08: White Blood Count 6.8, Red Blood Count 4.02L, Hemoglobin 11.2L, Hematocrit 34L, Mean Corpuscular Volume 84, Mean Corpuscular Hemoglobin 28, Mean Corpuscular Hemoglobin Concent 33, Red Cell Distribution Width 12.9, Platelet Count 235, Mean Platelet Volume 10.7, Immature Granulocyte % (Auto) 1, Neutrophils (%) (Auto) 69, Lymphocytes (%) (Auto) 21, Monocytes (%) (Auto) 5, Eosinophils (%) (Auto) 3, Basophils (%) (Auto) 1, Neutrophils # (Auto) 4.7, Lymphocytes # (Auto) 1.5, Monocytes # (Auto) 0.4, Eosinophils # (Auto) 0.2, Basophils # (Auto) 0.1, Immature Granulocyte # (Auto) 0.1, Sodium Level 135, Potassium Level 3.5L, Chloride Level 97L, Carbon Dioxide Level 24, Anion Gap 14, Blood Urea Nitrogen 31H, Creatinine 2.69H, Estimat Glomerular Filtration Rate 27, BUN/Creatinine Ratio 12, Glucose Level 161H, Calcium Level 9.0, Corrected Calcium 9.8, Total Bilirubin 0.5, Aspartate Amino Transf (AST/SGOT) 12, Alanine Aminotransferase (ALT/SGPT) 11, Alkaline Phosphatase 55, Total Protein 7.0, Albumin 3.0L 01/15/22 11:11: Glucometer 220H Microbiology 01/12/22 Blood Culture - Preliminary, Resulted No growth Assessment/Plan/Dx Assessment: 1. Non pressure ulcer left anterior calf 2. Cellulitis with associated lymphedema 3. DM2 4. CKD 4 5. Obesity Plan: 1. Cleanse daily with saline or wound cleanser. Apply silvasorb gel to wound bed. Cover with gauze and secure with Medipore tape. Send gel home with patient 2. Agree with antibiotic therapy 3. Agree with efforts to improve glycemic control. Podiatry services as outpatient for off loading would be a good idea as well 4. Agree with nephrology input as outpaitnet 5. Weight loss with protein supplementation adviseable 6. Patient with lower extremity pain and DM2. Vascular work up as outpatient would be a consideration if pain does not continue to improve with resolution of cellulitis and if wound does not heal as expected WALLY REED MD Jan 15, 2022 12:26
[2022-01-15] MEDS: MICONAZOLE NITRATE 2% CRM 30 GM TP SCH ×2 (12:36→20:21)
[2022-01-15] MEDS: cloNIDine 0.1 MG (CATAPRES) TAB PO PRN ×2 (15:33→19:39)
[2022-01-15] MEDS: GABAPENTIN 300 MG (NEURONTIN) CAP PO SCH (20:16)
[2022-01-16] MEDS: LINEZOLID 600MG/300ML IVPB (PRE-MIX) IV SCH (02:22)
[2022-01-16 03:28] VITALS: BP 153/77
[2022-01-16] MEDS: PIPERACILLIN SODIUM/TAZOBACTAM 4.5 GM in NS (IVPB) 100 ML IV SCH (04:04)
[2022-01-16] MEDS: inSUlin ASPART (NovoLOG) 1 UNIT/0.01 ML (CHARGE PER UNIT) SC SCH ×2 (05:47→08:28)
[2022-01-16 05:50] LABS: BASOPHILS # (AUTO) 0.1 10^3/uL (0.0-0.1); BASOPHILS % (AUTO) 1 % (0-10); EOSINOPHILS # (AUTO) 0.3 10^3/uL (0.0-0.3); EOSINOPHILS % (AUTO) 5 % (0-10); HEMATOCRIT 31 % (40-54); HEMOGLOBIN 10.4 g/dL (13.3-17.7); LYMPHOCYTES # (AUTO) 1.2 10^3/uL (1.0-4.0); LYMPHOCYTES % (AUTO) 21 % (12-44); MEAN CORPUSCULAR HEMOGLOBIN 28 pg (25-34); MEAN CORPUSCULAR HGB CONC 34 g/dL (32-36); MEAN CORPUSCULAR VOLUME 84 fL (80-99); MEAN PLATELET VOLUME 10.3 fL (9.0-12.2); MONOCYTES # (AUTO) 0.4 10^3/uL (0.0-1.0); MONOCYTES % (AUTO) 6 % (0-12); NEUTROPHILS # (AUTO) 3.8 10^3/uL (1.8-7.8); NEUTROPHILS % (AUTO) 66 % (42-75); PLATELET COUNT 225 10^3/uL (130-400); WHITE BLOOD COUNT 5.8 10^3/uL (4.3-11.0)
[2022-01-16 06:08] LABS: ALBUMIN 2.8 GM/DL (3.2-4.5); POTASSIUM 4.2 MMOL/L (3.6-5.0)
[2022-01-16 06:09] LABS: CALCIUM 8.9 MG/DL (8.5-10.1)
[2022-01-16 06:10] LABS: TOTAL PROTEIN 6.7 GM/DL (6.4-8.2)
[2022-01-16 06:12] LABS: BILIRUBIN,TOTAL 0.4 MG/DL (0.1-1.0)
[2022-01-16 06:14] LABS: CREATININE SERUM 2.56 MG/DL (0.60-1.30)
[2022-01-16] MEDS ORDERED: KCL 20 MEQ TAB (K-DUR) PO SCH (07:00)
--- NOTE | 2022-01-16 07:16 | Progress Note - Surgery ---
MOJANAY Dionisio 01/16/22 0715: Subjective Date Seen by a Provider: Jan 16, 2022 Time Seen by a Provider: 07:01 Subjective/Events-last exam Mr. Funes is being followed for cellulitis of his left lower extremity. This morning he reports that the redness and swelling in his leg has continued to go down. He says wound care saw him yesterday and placed antibiotic ointment on the lesion on his anterior gibson. He reports his pain is a 3/10 this morning and he is ready to go home today. He has no other concerns or complaints this morning. Review of Systems General: No Chills, No Fatigue HEENT: No Head Aches, No Visual Changes Pulmonary: No Dyspnea, No Cough Cardiovascular: No: Chest Pain, Palpitations Gastrointestinal: No: Nausea, Vomiting Musculoskeletal: leg pain, foot pain Focused Exam Lactate Level 01/13/22 18:25: Lactic Acid Level 1.40 Objective Exam Vital Signs Date Time Temp Pulse Resp B/P (MAP) Pulse Ox O2 Delivery O2 Flow Rate FiO2 01/16/22 03:28 37.0 80 18 153/77 (102) 95 Room Air 01/15/22 23:47 36.9 71 18 148/80 (102) 95 Room Air 01/15/22 21:05 114 162/84 (110) 93 Room Air 01/15/22 20:35 Room Air 01/15/22 19:03 36.7 80 18 184/95 (124) 97 Room Air 01/15/22 16:03 36.8 81 18 182/94 (123) 96 Room Air 01/15/22 11:48 36.7 79 18 157/78 (104) 97 Room Air 01/15/22 08:06 36.7 78 18 150/95 (113) 96 Room Air 01/15/22 07:32 Room Air I & O 01/16/22 07:00 Intake Total 1780 ml Balance 1780 ml Capillary Refill : Less Than 3 Seconds General Appearance: No Apparent Distress, WD/WN, Chronically ill HEENT: PERRL/EOMI, Moist Mucous Membranes Neck: Non Tender, Supple Respiratory: Chest Non Tender, Lungs Clear, Normal Breath Sounds, No Accessory Muscle Use, No Respiratory Distress Cardiovascular: Regular Rate, Rhythm, No Murmur, Normal Peripheral Pulses Peripheral Pulses: 2+ Dorsalis Pedis (R), 2+ Left Dors-Pedis (L), 2+ Radial Pulses (R), 2+ Radial Pulses (L) Gastrointestinal: non tender, soft Extremity: Inflammation, Pedal Edema (Left 1+), Other (LLE erythema and edema improved, erythema and edema of left foot with 1+ pitting. Anterior gibson lesions bandaged.) Neurologic/Psychiatric: Alert, Oriented x3 Skin: Normal Color, Warm/Dry Results Lab Laboratory Tests 01/15/22 11:11: Glucometer 220H 01/15/22 15:21: Glucometer 173H 01/15/22 20:19: Glucometer 166H 01/16/22 05:38: White Blood Count 5.8, Red Blood Count 3.68L, Hemoglobin 10.4L, Hematocrit 31L, Mean Corpuscular Volume 84, Mean Corpuscular Hemoglobin 28, Mean Corpuscular Hemoglobin Concent 34, Red Cell Distribution Width 12.8, Platelet Count 225, Mean Platelet Volume 10.3, Immature Granulocyte % (Auto) 1, Neutrophils (%) (Aut o) 66, Lymphocytes (%) (Auto) 21, Monocytes (%) (Auto) 6, Eosinophils (%) (Auto) 5, Basophils (%) (Auto) 1, Neutrophils # (Auto) 3.8, Lymphocytes # (Auto) 1.2, Monocytes # (Auto) 0.4, Eosinophils # (Auto) 0.3, Basophils # (Auto) 0.1, Immature Granulocyte # (Auto) 0.1, Sodium Level 137, Potassium Level 4.2, Chloride Level 104, Carbon Dioxide Level 21, Anion Gap 12, Blood Urea Nitrogen 28H, Creatinine 2.56H, Estimat Glomerular Filtration Rate 28, BUN/Creatinine Ratio 11, Glucose Level 90, Calcium Level 8.9, Corrected Calcium 9.9, Total Bilirubin 0.4, Aspartate Amino Transf (AST/SGOT) 16, Alanine Aminotransferase (ALT/SGPT) 14, Alkaline Phosphatase 68, Total Protein 6.7, Albumin 2.8L 01/16/22 05:44: Glucometer 83 Microbiology 01/12/22 Blood Culture - Preliminary, Resulted No growth Assessment/Plan Assessment/Plan Assessment/Plan Cellulitis LLE with stranding seen on CT No evidence of abscess or crepitus on physical exam Hyponatremia CKD IV BUN and Cr trending down Type 2 Diabetes HTN HLD Pain control as needed Continue IV antibiotics No surgical intervention needed at this time. No obvious signs of abscess or drainage needed Patient's pain, swelling, and erythema continue to be improved compared to yesterday From a surgical standpoint patient is okay for discharge today if okay with medicine Clinical Quality Measures DVT/VTE Risk/Contraindication: Contraindications-Mechi: Other *list below* Other: cellulitis MORENA DURÁN DO 01/16/22 2356: Supervisory-Addendum Brief Verification & Attestation Participated in pt care: other (did not see pt before he left) Personally performed: other (did not see pt before he left) Care discussed with: Medical Student Procedures: n/a did not see pt before he left JANAY MO Jan 16, 2022 07:15 MORENA DURÁN DO Jan 16, 2022 23:56
[2022-01-16 08:14] VITALS: BP 180/84
[2022-01-16] MEDS: PANTOPRAZOLE 40 MG (PROTONIX) TAB PO SCH (08:27)
[2022-01-16] MEDS: ASPIRIN E.C. 81 MG (ECOTRIN) TAB PO SCH (08:28)
[2022-01-16] MEDS: DOCUSATE SODIUM 100 MG (COLACE) CAP PO SCH (08:28)
[2022-01-16] MEDS: LACTOBACILLUS ACIDOPHILUS (PROBIOTIC) CAPSULE PO SCH (08:28)
[2022-01-16] MEDS: cloNIDine 0.1 MG (CATAPRES) TAB PO PRN (08:28)
[2022-01-16] MEDS: amLODIPine 2.5MG (NORVASC) TAB PO SCH (08:28)
[2022-01-16] MEDS: GEMFIBROZIL 600 MG (LOPID) TAB PO SCH (08:28)
[2022-01-16] MEDS: MICONAZOLE NITRATE 2% CRM 30 GM TP SCH (08:31)
[2022-01-16] MEDS ORDERED: SILVASORB GEL 1.5 OZ TP SCH (09:00)
[2022-01-16] MEDS ORDERED: OXC5T PO (11:07)
[2022-01-16] MEDS ORDERED: AMLO2.5T4 PO (11:07)
[2022-01-16] MEDS ORDERED: INSU100I14 SC (11:07)
[2022-01-16] MEDS ORDERED: GABA800T10 PO (11:07)
[2022-01-16] MEDS ORDERED: LACT1CAP7 PO (11:07)
[2022-01-16] MEDS ORDERED: INSU100I34 SQ (11:07)
[2022-01-16] MEDS ORDERED: ATOR40TA PO (11:07)
[2022-01-16] MEDS ORDERED: AMOX1TAB12 PO (11:07)
[2022-01-16] MEDS ORDERED: LNZ600T PO (11:07)
--- NOTE | 2022-01-16 11:08 | Discharge Summary ---
Discharge Summary Hospital Course Was the Problem List Reviewed?: Yes Problems/Dx: (1) Left leg cellulitis (2) Cellulitis of left lower extremity (3) Uncontrolled diabetes mellitus Status: Acute Qualifiers: Qualified Codes: E13.65 - Other specified diabetes mellitus with hyperglycemia Hospital Course Date of Admission: Jan 13, 2022 at 00:40 Admission Diagnosis : Family Physician/Provider: Best Powell MD Date of Discharge: 01/16/22 Discharge Diagnosis: [ ] Hospital Course: Tab is a 56 yo male admitted on 01/12 for LLE cellulitis from [facility] ED. Pt has h/o DM, CKD stage IV. Pt was placed on Zosyn and Zyvox(allergy to Vanc) and Heparin for DVT prophylaxis. He had elevated creatinine, but over the course of his hospital stay this trended down. TDAP was given at this time as well. General surgery was consulted and CT ordered which showed no abscess or drainable area. He was continued on abx and his LLE erythema and edema continued to improve. He had a wound on his left gibson that was likely the entry point for his infection, so wound care was consulted for this. On 01/16 pt was medically stable for discharge and ready to go home. Pt has appt with nursing care attendant tomorrow. Advise pt to f/u with PCP in 1 week. Will send Rx to [facility] in [place] for abx and pain medication. SERGEY RAMOS MED STUDENT Labs and Pending Lab Test: Laboratory Tests 01/15/22 11:11: Glucometer 220H 01/15/22 15:21: Glucometer 173H 01/15/22 20:19: Glucometer 166H 01/16/22 05:38: White Blood Count 5.8, Red Blood Count 3.68L, Hemoglobin 10.4L, Hematocrit 31L, Mean Corpuscular Volume 84, Mean Corpuscular Hemoglobin 28, Mean Corpuscular Hemoglobin Concent 34, Red Cell Distribution Width 12.8, Platelet Count 225, Ana Laura n Platelet Volume 10.3, Immature Granulocyte % (Auto) 1, Neutrophils (%) (Auto) 66, Lymphocytes (%) (Auto) 21, Monocytes (%) (Auto) 6, Eosinophils (%) (Auto) 5, Basophils (%) (Auto) 1, Neutrophils # (Auto) 3.8, Lymphocytes # (Auto) 1.2, Monocytes # (Auto) 0.4, Eosinophils # (Auto) 0.3, Basophils # (Auto) 0.1, Immature Granulocyte # (Auto) 0.1, Sodium Level 137, Potassium Level 4.2, Chloride Level 104, Carbon Dioxide Level 21, Anion Gap 12, Blood Urea Nitrogen 28H, Creatinine 2.56H, Estimat Glomerular Filtration Rate 28, BUN/Creatinine Ratio 11, Glucose Level 90, Calcium Level 8.9, Corrected Calcium 9.9, Total Bilirubin 0.4, Aspartate Amino Transf (AST/SGOT) 16, Alanine Aminotransferase (ALT/SGPT) 14, Alkaline Phosphatase 68, Total Protein 6.7, Albumin 2.8L 01/16/22 05:44: Glucometer 83 Microbiology 01/12/22 Blood Culture - Preliminary, Resulted No growth Home Meds Active Gabapentin 800 Mg Tablet 800 Mg PO HS Amlodipine Besylate 2.5 Mg Tablet 2.5 Mg PO DAILY Amox Tr-K Clv 875-125 mg Tab (Amoxicillin/Potassium Clav) 875 Mg-125 Mg Tablet 1 Each PO BID Acidophilus-Pectin Capsule (Lactobacillus Acidophilus/Pect) 75 Million Cell-100 Mg Capsule 2 Each PO TIDWM Lipitor (Atorvastatin Calcium) 40 Mg Tablet 40 Mg PO DAILY Linezolid 600 Mg Tablet 600 Mg PO BID Novolog Flexpen (Insulin Aspart) 100 Unit/Ml (3 Ml) Solution 8 Units SC TIDWM 7 Days Basaglar Kwikpen U-100 (Insulin Glargine,Hum.rec.anlog) 100 Unit/Ml (3 Ml) Insuln.pen 12 Unit SQ BID 7 Days Reported Tylenol Arthritis (Acetaminophen) 650 Mg Tablet.er 1,300 Mg PO DAILY TAKES 2 (650MG) TABS Multi-Vitamin Gummies (Folic Acid/Multivit-Min/Lutein) 200 Mcg-137.5 Mcg Tab. chew 1 Each PO DAILY Docusate Sodium 100 Mg Capsule 100 Mg PO DAILY PRN Lopid (Gemfibrozil) 600 Mg Tablet 600 Mg PO BID Protonix (Pantoprazole Sodium) 40 Mg Tablet.dr 40 Mg PO DAILY Proair Hfa (Albuterol Sulfate) 1 Puff Puff 2 Puff IH Q4H 1 PUFF = 90 MCG Gvoke Hypopen 2-Pack (Glucagon) 1 Mg/0.2 Ml Auto.injct 1 Mg SQ PRN Lisinopril 40 Mg Tablet 40 Mg PO DAILY Aspirin EC (Aspirin) 81 Mg Tablet. 81 Mg PO DAILY Assessment/Pt Instructions Nephrology tomorrow PCP 1 week Discharge Planning: <30 minutes discharge planning Discharge Instructions Discharge Diet: ADA Diet Activity as Tolerated: Yes Discharge Physical Examination Vital Signs Vital Signs Date Time Temp Pulse Resp B/P (MAP) Pulse Ox O2 Delivery O2 Flow Rate FiO2 01/16/22 08:14 36.6 85 18 180/84 (116) 96 Room Air 01/14/22 07:09 0.00 General Appearance: No Apparent Distress, WD/WN, Chronically ill Respiratory: Lungs Clear, Normal Breath Sounds Cardiovascular: Regular Rate, Rhythm Neurologic/Psychiatric: Alert, Oriented x3, No Motor/Sensory Deficits, Normal Mood/Affect Allergies: Coded Allergies: vancomycin (Verified Allergy, Unknown, 03/30/21) cocaine (Unverified Adverse Reaction, Unknown, 11/13/21) Discharge Summary Date of Admission Jan 13, 2022 at 00:40 Date of Discharge Discharge Date: Jan 16, 2022 Admission Diagnosis Assessment: Left foot/leg cellulitis CKD stage IV DM HTN HLP Plan: IV abx Monitor pain CT stat Labs Dr Campbell Tetanus vaccine Discharge Diagnosis Wound care IV abx (1) Left leg cellulitis (2) Cellulitis of left lower extremity (3) Uncontrolled diabetes mellitus Status: Acute Qualifiers: Qualified Codes: E13.65 - Other specified diabetes mellitus with hyperglycemia Clinical Quality Measures DVT/VTE Risk/Contraindication: Contraindications-Mechi: Other *list below* Other: cellulitis MONTSERRAT BARNETT DO Jan 16, 2022 11:08
--- NOTE | 2022-01-16 11:50 | Progress Note ---
SERGEY RAMOS MED STUDENT 01/16/22 1150: Progress Note Tab is a 56 yo male admitted on 01/12 for LLE cellulitis from [facility] ED. Pt has h/o DM, CKD stage IV. Pt was placed on Zosyn and Zyvox(allergy to Vanc) and Heparin for DVT prophylaxis. He had elevated creatinine, but over the course of his hospital stay this trended down. TDAP was given at this time as well. General surgery was consulted and CT ordered which showed no abscess or drainable area. He was continued on abx and his LLE erythema and edema continued to improve. He had a wound on his left gibson that was likely the entry point for his infection, so wound care was consulted for this. On 01/16 pt was medically stable for discharge and ready to go home. Pt has appt with blueprint maker tomorrow. Advise pt to f/u with PCP in 1 week. Will send Rx to [facility] in [place] for abx and pain medication. TARYN BARNETT DO 01/17/22 0537: Supervisory-Addendum Brief Verification & Attestation Participated in pt care: history, MDM, physical Personally performed: exam, history, MDM, supervision of care Care discussed with: Medical Student Procedures: n/a Results interpretation: Verified all documentation Verification and Attestation of Medical Student E/M Service A medical student performed and documented this service in my presence. I reviewed and verified all information documented by the medical student and made modifications to such information, when appropriate. I personally performed the physical exam and medical decision making. Taryn Barnett, Jan 17, 2022,05:37 SERGEY RAMOS MED STUDENT Jan 16, 2022 11:50 TARYN BARNETT DO Jan 17, 2022 05:37
[2022-01-16] MEDS ORDERED: LINEZOLID (ZYVOX) 600 MG TAB PO SCH (21:00)
== END 2022-01-16 11:50 | disposition home or self-care (01) | DRG 603 ==
LOC: EDUNIT# 19:17 → ER FS 19:20 → 4TH 01-13 00:40
PROVIDERS: ADMIT Internal Medicine; ATTEND Internal Medicine
DX: L03.116 Cellulitis of left lower limb (principal); N18.4 Chronic kidney disease, stage 4 (severe); E87.1 Hypo-osmolality and hyponatremia; I12.9 Hypertensive chronic kidney disease with stage 1 through stage 4 chronic kidney disease, or unspecified chronic kidney disease; E11.22 Type 2 diabetes mellitus with diabetic chronic kidney disease; E11.65 Type 2 diabetes mellitus with hyperglycemia; F17.220 Nicotine dependence, chewing tobacco, uncomplicated; E78.00 Pure hypercholesterolemia, unspecified; D64.9 Anemia, unspecified; Z23 Encounter for immunization; Z79.4 Long term (current) use of insulin; Z79.82 Long term (current) use of aspirin; Z88.4 Allergy status to anesthetic agent; Z88.1 Allergy status to other antibiotic agents
CPT/HCPCS: 36415; 73630; 73700; 80053; 82550; 82947; 83605; 85025; 85652; 87040; 90715; 94640; 94760

== ENCOUNTER 2022-02-17 14:03 | Emergency (ER) | payer MEDICAID ==
[~2022-02-17] VITALS: Ht 172 cm; Wt 101.0 kg
[~2022-02-17 14:03] MED LIST changes: +ACET-2650 PO; +AMLO2.5T4 PO; +AMOX1TAB12 PO; +ASPI-1238 PO; +ATOR40TA PO; +DOCU100C37 PO; +FOLI-88 PO; +GABA300C PO; +GABA800T10 PO; +GEMF600T PO; +GLUC1AUT2 SQ; +INSU100I10 SQ; +INSU100I14 SC; +INSU100I23 SQ; +INSU100I34 SQ; +LACT1CAP7 PO; +LISI40TA9 PO; +LNZ600T PO; +OXC5T PO; +PANT40TA2 PO; +RT-ALBUINH IH
[2022-02-17 14:56] LABS: BASOPHILS % (AUTO) 0 % (0-10); EOSINOPHILS # (AUTO) 0.2 10^3/uL (0.0-0.3); EOSINOPHILS % (AUTO) 2 % (0-10); HEMATOCRIT 34 % (40-54); HEMOGLOBIN 11.6 g/dL (13.3-17.7); LYMPHOCYTES # (AUTO) 1.6 10^3/uL (1.0-4.0); LYMPHOCYTES % (AUTO) 20 % (12-44); MEAN CORPUSCULAR HEMOGLOBIN 28 pg (25-34); MEAN CORPUSCULAR HGB CONC 34 g/dL (32-36); MEAN CORPUSCULAR VOLUME 82 fL (80-99); MEAN PLATELET VOLUME 10.8 fL (9.0-12.2); MONOCYTES # (AUTO) 0.6 10^3/uL (0.0-1.0); MONOCYTES % (AUTO) 8 % (0-12); NEUTROPHILS # (AUTO) 5.6 10^3/uL (1.8-7.8); NEUTROPHILS % (AUTO) 70 % (42-75); PLATELET COUNT 214 10^3/uL (130-400)
[2022-02-17] MEDS ORDERED: PIPERACILLIN SODIUM/TAZOBACTAM 4.5 GM in NS (IVPB) 100 ML IV ONE (15:00)
--- NOTE | 2022-02-17 15:05 | ED Lower Extremity ---
General Chief Complaint: Lower Extremity Stated Complaint: L FOOT/KNEE SWELLING, Nursing Triage Note: pt. reports treated for cellulitis of LLE last month w/ abx. reports yesterday am, noticed increased redness, edema, tenderness to the same extremity. Pt. here for eval. brought by family Source: patient Exam Limitations: no limitations History of Present Illness Date Seen by Provider: Feb 17, 2022 Time Seen by Provider: 15:04 Allergies and Home Medications Allergies Coded Allergies: vancomycin (Verified Allergy, Unknown, 03/30/21) cocaine (Unverified Adverse Reaction, Unknown, 11/13/21) Patient Home Medication List Acetaminophen (Tylenol Arthritis) 650 Mg Tablet.er, 1,300 MG PO DAILY, (Reported) Entered as Reported by: KLAUS MCKEON on 01/14/22 1211 Albuterol Sulfate (Proair Hfa) 1 Puff Puff, 2 PUFF IH Q4H, (Reported) Entered as Reported by: DASH VASQUEZ on 01/13/22 0310 Amlodipine Besylate (Amlodipine Besylate) 2.5 Mg Tablet, 2.5 MG PO DAILY Prescribed by: MONTSERRAT BARNETT on 01/16/22 1107 Amoxicillin/Potassium Clav (Amox Tr-K Clv 875-125 mg Tab) 875 Mg-125 Mg Tablet, 1 EACH PO BID Prescribed by: JING FERNANDES on 02/17/22 1540 Aspirin (Aspirin EC) 81 Mg Tablet.dr, 81 MG PO DAILY, (Reported) Entered as Reported by: DASH VASQUEZ on 01/13/22 0232 Atorvastatin Calcium (Lipitor) 40 Mg Tablet, 40 MG PO DAILY Prescribed by: MONTSERRAT BARNETT on 01/16/22 1107 Docusate Sodium (Docusate Sodium) 100 Mg Capsule, 100 MG PO DAILY PRN for CONSTIPATION-1ST LINE, (Reported) Entered as Reported by: KLAUS MCKEON on 01/14/22 1209 Folic Acid/Multivit-Min/Lutein (Multi-Vitamin Gummies) 200 Mcg-137.5 Mcg Tab.chew, 1 EACH PO DAILY, (Reported) Entered as Reported by: KLAUS MCKEON on 01/14/22 1210 Gabapentin (Gabapentin) 800 Mg Tablet, 800 MG PO HS Prescribed by: MONTSERRAT BARNETT on 01/16/22 1107 Gemfibrozil (Lopid) 600 Mg Tablet, 600 MG PO BID, (Reported) Entered as Reported by: DASH VASQUEZ on 01/13/22 0555 Glucagon (Gvoke Hypopen 2-Pack) 1 Mg/0.2 Ml Auto.injct, 1 MG SQ PRN, (Reported) Entered as Reported by: DASH VASQUEZ on 01/13/22 0310 Insulin Aspart (Novolog Flexpen) 100 Unit/Ml (3 Ml) Solution, 8 UNITS SC TIDWM Prescribed by: MONTSERRAT BARNETT on 01/16/22 110 Insulin Glargine,Hum.rec.anlog (Basaglar Kwikpen U-100) 100 Unit/Ml (3 Ml) I nsuln.pen, 12 UNIT SQ BID Prescribed by: MONTSERRAT BARNETT on 01/16/22 110 Lactobacillus Acidophilus/Pect (Acidophilus-Pectin Capsule) 75 Million Cell-100 Mg Capsule, 2 EACH PO TIDWM Prescribed by: MONTSERRAT BARNETT on 01/16/22 110 Linezolid (Linezolid) 600 Mg Tablet, 600 MG PO BID Prescribed by: JING FERNANDES on 02/17/22 1540 Oxycodone Hcl (Oxyir Tablet) 5 Mg Tab, 5 MG PO Q4HR PRN for PAIN-SEE DOSE INSTRUCTIONS Prescribed by: JING FERNANDES on 02/17/22 154 Pantoprazole Sodium (Protonix) 40 Mg Tablet.dr, 40 MG PO DAILY, (Reported) Entered as Reported by: DASH VASQUEZ on 01/13/22 0337 Past Qsfdfjn-Kzmakz-Fxnqfg Hx Patient Social History Tobacco Use?: Yes Smokeless Tobacco Frequency: Light User Use of E-Cig and/or Vaping dev: No Substance use?: No Alcohol Use?: No Pt feels they are or have been: No Immunizations Up To Date Influenza Vaccine Up-to-Date: No; Not Current First/Initial COVID19 Vaccinat: unvaccinated Second COVID19 Vaccination Mika: unvaccinated Third COVID19 Vaccination Date: unvaccinated Past Medical History Surgeries: Yes (Skin graft on RLE) Respiratory: No Cardiac: Yes High Cholesterol, Hypertension Neurological: No Genitourinary: Yes Renal Failure Gastrointestinal: No Musculoskeletal: No Endocrine: Yes Diabetes, Insulin dep HEENT: No Cancer: No Psychosocial: No Integumentary: No Family Medical History Diabetes, Other Conditions/Hx Physical Exam Vital Signs Vital Signs - First Documented 02/17/22 14:15 Temp 36.8 Pulse 90 Resp 16 B/P (MAP) 159/90 (113) Pulse Ox 97 O2 Delivery Room Air Capillary Refill : Less Than 3 Seconds Height, Weight, BMI Height: '" Weight: lbs. oz. kg; 34.00 BMI Method: Progress/Results/Core Measures Results/Orders Lab Results Laboratory Tests Test 02/17/22 14:50 Range/Units White Blood Count 8.0 4.3-11.0 10^3/uL Red Blood Count 4.14 L 4.30-5.52 10^6/uL Hemoglobin 11.6 L 13.3-17.7 g/dL Hematocrit 34 L 40-54 % Mean Corpuscular Volume 82 80-99 fL Mean Corpuscular Hemoglobin 28 25-34 pg Mean Corpuscular Hemoglobin Concent 34 32-36 g/dL Red Cell Distribution Width 13.2 10.0-14.5 % Platelet Count 214 130-400 10^3/uL Mean Platelet Volume 10.8 9.0-12.2 fL Immature Granulocyte % (Auto) 0 % Neutrophils (%) (Auto) 70 42-75 % Lymphocytes (%) (Auto) 20 12-44 % Monocytes (%) (Auto) 8 0-12 % Eosinophils (%) (Auto) 2 0-10 % Basophils (%) (Auto) 0 0-10 % Neutrophils # (Auto) 5.6 1.8-7.8 10^3/uL Lymphocytes # (Auto) 1.6 1.0-4.0 10^3/uL Monocytes # (Auto) 0.6 0.0-1.0 10^3/uL Eosinophils # (Auto) 0.2 0.0-0.3 10^3/uL Basophils # (Auto) 0.0 0.0-0.1 10^3/uL Immature Granulocyte # (Auto) 0.0 0.0-0.1 10^3/uL Prothrombin Time 14.4 12.2-14.7 SEC INR Comment 1.1 0.8-1.4 Activated Partial Thromboplast Time 35 24-35 SEC D-Dimer 0.64 H 0.00-0.49 UG/ML Sodium Level 132 L 135-145 MMOL/L Potassium Level 3.7 3.6-5.0 MMOL/L Chloride Level 97 L 98-107 MMOL/L Carbon Dioxide Level 22 21-32 MMOL/L Anion Gap 13 5-14 MMOL/L Blood Urea Nitrogen 33 H 7-18 MG/DL Creatinine 2.79 H 0.60-1.30 MG/DL Estimat Glomerular Filtration Rate 25 BUN/Creatinine Ratio 12 Glucose Level 294 H 70-105 MG/DL Lactic Acid Level 1.17 0.50-2.00 MMOL/L Calcium Level 9.2 8.5-10.1 MG/DL Corrected Calcium 9.7 8.5-10.1 MG/DL Total Bilirubin 0.6 0.1-1.0 MG/DL Aspartate Amino Transf (AST/SGOT) 18 5-34 U/L Alanine Aminotransferase (ALT/SGPT) 15 0-55 U/L Alkaline Phosphatase 71 40-136 U/L Total Protein 7.8 6.4-8.2 GM/DL Albumin 3.4 3.2-4.5 GM/DL My Orders Orders - JING FERNANDES LEASE PICKER Cbc With Automated Diff (02/17/22 14:33) Comprehensive Metabolic Panel (02/17/22 14:33) Blood Culture (02/17/22 14:33) Urinalysis (02/17/22 14:33) Protime With Inr (02/17/22 14:33) Partial Thromboplastin Time (02/17/22 14:33) Ed Iv/Invasive Line Start (02/17/22 14:33) Lactic Acid Analyzer (02/17/22 14:33) Fibrin Degradation Products (02/17/22 14:33) Chest 1 View, Ap/Pa Only (02/17/22 14:45) Vital Signs Adult Sepsis Patie Q15M (02/17/22 14:45) O2 (02/17/22 14:45) Remove Rings In Anticipation O (02/17/22 14:45) Foot, Left, 2 View (02/17/22 14:45) Knee, Left, 3 Views (02/17/22 14:45) Oxycodone Immediate Rel Tablet (Oxyir Ta (02/17/22 15:00) Piperacillin Sodium/Tazobactam (Zosyn Vi (02/17/22 15:00) Ns Iv 1000 Ml (Sodium Chloride 0.9%) (02/17/22 15:45) Medications Given in ED Current Medications Medications Dose Ordered Sig/Marilin Route Start Time Stop Time Status Last Admin Dose Admin Oxycodone HCl 5 mg ONCE ONCE PO 02/17/22 15:00 02/17/22 15:01 DC 02/17/22 16:23 5 MG Piperacillin Sod/ Tazobactam Sod 4.5 gm/Sodium Chloride 100 ml @ 200 mls/hr ONCE ONCE IV 02/17/22 15:00 02/17/22 15:29 DC 02/17/22 16:22 200 MLS/HR Sodium Chloride 1,000 ml @ 0 mls/hr Q0M ONCE IV 02/17/22 15:45 02/17/22 15:46 DC 02/17/22 16:23 999 MLS/HR Vital Signs/I&O 02/17/22 14:15 Temp 36.8 Pulse 90 Resp 16 B/P (MAP) 159/90 (113) Pulse Ox 97 O2 Delivery Room Air Blood Pressure Mean: 113 Departure Impression Primary Impression: Cellulitis of left lower extremity Additional Impression: Chronic renal insufficiency Disposition: HOME, SELF-CARE Condition: Improved Departure-Patient Inst. Decision time for Depature: 15:38 Referrals: NO,LOCAL PHYSICIAN (PCP) Primary Care Physician CARRIE ALONSO APRN (Family) Primary Care Physician Patient Instructions: Cellulitis (Skin Infection), Adult (DC) Add. Discharge Instructions: Plan: 1. Take antibiotics twice a day as directed. May take with food. 2. May take Oxycodone 5mg IR every 6 hours as needed for severe pain. 3. Drink plenty of fluids to stay hydrated. 4. Wash leg gently with mild soap and water, pat dry. 5. Monitor for any increased redness and fevers. Return if your symptoms worsen. 6. Return to ER for any new, concerning, or worsening symptoms. All discharge instructions reviewed with patient and/or family. Voiced understanding. Scripts Amoxicillin/Potassium Clav (Amox Tr-K Clv 875-125 mg Tab) 875 Mg-125 Mg Tablet 1 EACH PO BID, #10 TAB Prov: JING FERNANDES APRN 02/17/22 Oxycodone Hcl (OXYIR TABLET) 5 Mg Tab 5 MG PO Q4HR PRN for PAIN-SEE DOSE INSTRUCTIONS, #15 TAB Prov: JING FERNANDES LEASE PICKER 02/17/22 Linezolid (Linezolid) 600 Mg Tablet 600 MG PO BID, #10 TAB Prov: JING FERNANDES LEASE PICKER 02/17/22 JING FERNANDES LEASE PICKER Feb 17, 2022 15:05
[2022-02-17 15:11] LABS: ALBUMIN 3.4 GM/DL (3.2-4.5); POTASSIUM 3.7 MMOL/L (3.6-5.0)
[2022-02-17 15:12] LABS: CALCIUM 9.2 MG/DL (8.5-10.1)
[2022-02-17 15:14] LABS: TOTAL PROTEIN 7.8 GM/DL (6.4-8.2)
[2022-02-17 15:15] LABS: BILIRUBIN,TOTAL 0.6 MG/DL (0.1-1.0)
[2022-02-17 15:17] LABS: CREATININE SERUM 2.79 MG/DL (0.60-1.30)
[2022-02-17 15:18] LABS: FIBRIN DEGRADATION PRODUCTS 0.64 UG/ML (0.00-0.49); INR 1.1 (0.8-1.4); PROTHROMBIN TIME PATIENT 14.4 SEC (12.2-14.7)
--- NOTE | 2022-02-17 15:18 | Diagnostic Imaging Report ---
INDICATION: Sepsis, pain. EXAMINATION: Left foot, 02/17/2022. FINDINGS: 2 views of the foot. Examination limited by technique. No obvious fracture or dislocation is appreciated. There is diffuse soft tissue prominence about the forefoot. Atherosclerotic disease is noted. IMPRESSION: Soft tissue swelling with no acute osseous abnormality. Dictated by: Dictated on workstation # [id number]
--- NOTE | 2022-02-17 15:18 | Diagnostic Imaging Report ---
INDICATION: Sepsis. EXAMINATION: Left knee, 02/17/2022. FINDINGS: 3 views of the knee. There is soft tissue swelling anteriorly. No joint effusion. No acute fracture or dislocation appreciated. IMPRESSION: Soft tissue swelling of anterior knee with no underlying acute osseous abnormality. Dictated by: Dictated on workstation # [id number]
--- NOTE | 2022-02-17 15:19 | Diagnostic Imaging Report ---
INDICATION: Sepsis. EXAMINATION: Chest, 02/17/2022. COMPARISON: 05/01/2021. FINDINGS: Right hemidiaphragm slightly elevated but stable from previous imaging with minimal adjacent atelectasis. No infiltrate or effusion. Heart and pulmonary vasculature are normal. No pneumothorax. IMPRESSION: Minimal right base atelectasis otherwise negative chest. Dictated by: Dictated on workstation # [id number]
[2022-02-17] MEDS ORDERED: AMOX1TAB12 PO (15:40)
[2022-02-17] MEDS ORDERED: OXC5T PO (15:40)
[2022-02-17] MEDS ORDERED: LNZ600T PO (15:40)
[2022-02-17] MEDS ORDERED: NS IV 1000 ML 1,000 ML IV ONE (15:45)
[2022-02-17 17:07] VITALS: BP 164/76
== END 2022-02-17 17:12 | disposition home or self-care (01) ==
LOC: EDUNIT# 14:03 → ER 14:05
DX: L03.116 Cellulitis of left lower limb (principal); I12.9 Hypertensive chronic kidney disease with stage 1 through stage 4 chronic kidney disease, or unspecified chronic kidney disease; N18.9 Chronic kidney disease, unspecified; Z28.310 Unvaccinated for COVID-19
CPT/HCPCS: 36415; 71045; 73562; 73620; 80053; 83605; 85025; 85379; 85610; 85730; 87040

== ENCOUNTER 2022-03-30 21:25 | Inpatient (IN) | payer MEDICARE, MEDICAID ==
[~2022-03-30] VITALS: Ht 172 cm; Wt 102.2 kg
[2022-03-30] MEDS ORDERED: NS IV 1000 ML 1,000 ML IV ONE (22:00)
[2022-03-30] MEDS ORDERED: PIPERACILLIN SODIUM/TAZOBACTAM 4.5 GM in NS (IVPB) 100 ML IV ONE (22:00)
--- NOTE | 2022-03-30 22:03 | ED Lower Extremity ---
General Chief Complaint: Lower Extremity Stated Complaint: CELLULITIS L LEG,FEVER Nursing Triage Note: c/o left lateral knee pain/swelling x1 day. hx cellulitis Source: patient (SOMEWHAT LIMITED HISTORIAN), other (FEMALE S.O. TRIES TO DO TALKING FOR PT--BOTH ARE SOMEWHAT LIMITED HISTORIANS) History of Present Illness Date Seen by Provider: Mar 30, 2022 Time Seen by Provider: 21:45 Initial Comments PT ARRIVES VIA POV FROM HOME WITH FEMALE S.O. PT STATES HE HAS "CELLULITIS IN HIS LEFT LEG AGAIN" CLAIMS IT JUST STARTED YESTERDAY--PAIN, REDNESS, WARMTH, TENDERNESS --ALL AROUND THE KNEE AND DOWN TO HIS TOES ON THE LEFT NO PROBLEMS WITH HIS RIGHT LEG THIS HAS BEEN A RECURRING PROBLEM IN HIS LEFT LEG FOR THE LAST FEW MONTHS, AND HAS BEEN HOSPITALIZED FOR IT IN THE PAST PT HAS TAKEN 4 LEFTOVER KEFLEX SINCE YESTERDAY AND HAS NOW RAN OUT ADDITIONALLY, PT RAN OUT OF HIS OXYCONTIN YESTERDAY WELL--HE TOOK HIS LAST DOSE YESTERDAY MORNING. HAS NOT ATTEMPTED TO CONTACT HIS PCP OR PHARMACY FOR REFILLS PT WANTING PAIN MEDICATIONS SOON HE ARRIVES--HE HAS NOT TAKEN ANYTHING ELSE FOR PAIN AT ANY TIME PT THINKS HE HAS "FEVER"BUT ONLY IN HIS KNEE--HAS NOT ACTUALLY CHECKED HIS TEMPERATURE AT ANY TIME PT DENIES ANY RECENT INJURY TO THIS LEG--HE HAS CHRONIC SORES TO BOTH OF HIS LEGS--PT STATES THEY HAVE BEEN THERE "FOR YEARS" THERE IS NO DRAINAGE FROM ANY AREAS OF THE LEG. 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 HAS NOT ATTEMPTED TO CONTACT HIS PCP AT ANY TIME FOR THIS PROBLEM, OR SEEK CARE UNTIL TONIGHT ( FRIDAY NIGHT) SYMPTOMS NO DIFFERENT TONIGHT. LAST VISIT HERE WAS 02/17/22 FOR THIS PROBLEM--WAS GIVEN RX'S FOR AUGMENTIN, LINEZOLID AND OXYCONTIN. WAS ADMITTED IN DECEMBER FOR THIS PROBLEM PT STATES HE DOES NOT SMOKE OR DRINK OR USE DRUGS. LAST TETANUS 01/13/22 PT IS NOT COVID OR FLU VACCINATED. DENIES ANY COVID OR FLU SYMPTOMS PCP: [facility] [place] Allergies and Home Medications Allergies Coded Allergies: vancomycin (Verified Allergy, Unknown, 03/30/21) cocaine (Unverified Adverse Reaction, Unknown, 11/13/21) Patient Home Medication List Acetaminophen (Tylenol Arthritis) 650 Mg Tablet.er, 1,300 MG PO DAILY, (Reported) Entered as Reported by: KLAUS MCKEON on 01/14/22 1211 Albuterol Sulfate (Proair Hfa) 1 Puff Puff, 2 PUFF IH Q4H, (Reported) Entered as Reported by: DASH VASQUEZ on 01/13/22 0310 Amlodipine Besylate (Amlodipine Besylate) 2.5 Mg Tablet, 2.5 MG PO DAILY Prescribed by: MONTSERRAT BARNETT on 01/16/22 1107 Amoxicillin/Potassium Clav (Amox Tr-K Clv 875-125 mg Tab) 875 Mg-125 Mg Tablet, 1 EACH PO BID Prescribed by: JING FERNANDES on 02/17/22 1540 Aspirin (Aspirin EC) 81 Mg Tablet.dr, 81 MG PO DAILY, (Reported) Entered as Reported by: DASH VASQUEZ on 01/13/22 0232 Atorvastatin Calcium (Lipitor) 40 Mg Tablet, 40 MG PO DAILY Prescribed by: MONTSERRAT BARNETT on 01/16/22 1107 Docusate Sodium (Docusate Sodium) 100 Mg Capsule, 100 MG PO DAILY PRN for CONSTIPATION-1ST LINE, (Reported) Entered as Reported by: KLAUS MCKEON on 01/14/22 1209 Folic Acid/Multivit-Min/Lutein (Multi-Vitamin Gummies) 200 Mcg-137.5 Mcg Tab.chew, 1 EACH PO DAILY, (Reported) Entered as Reported by: KLAUS MCKEON on 01/14/22 1210 Gabapentin (Gabapentin) 800 Mg Tablet, 800 MG PO HS Prescribed by: MONTSERRAT BARNETT on 01/16/22 1107 Gemfibrozil (Lopid) 600 Mg Tablet, 600 MG PO BID, (Reported) Entered as Reported by: DASH VASQUEZ on 01/13/22 0555 Glucagon (Gvoke Hypopen 2-Pack) 1 Mg/0.2 Ml Auto.injct, 1 MG SQ PRN, (Reported) Entered as Reported by: DASH VASQUEZ on 01/13/22 0310 Insulin Aspart (Novolog Flexpen) 100 Unit/Ml (3 Ml) Solution, 8 UNITS SC TIDWM Prescribed by: MONTSERRAT BARNETT on 01/16/221106 Insulin Glargine,Hum.rec.anlog (Basaglar Kwikpen U-100) 100 Unit/Ml (3 Ml) Insuln.pen, 12 UNIT SQ BID Prescribed by: MONTSERRAT BARNETT on 01/16/221106 Lactobacillus Acidophilus/Pect (Acidophilus-Pectin Capsule) 75 Million Cell-100 Mg Capsule, 2 EACH PO TIDWM Prescribed by: MONTSERRAT BARNETT on 01/16/221106 Linezolid (Linezolid) 600 Mg Tablet, 600 MG PO BID Prescribed by: JING FERNANDES on 02/17/22 154 Oxycodone Hcl (Oxyir Tablet) 5 Mg Tab, 5 MG PO Q4HR PRN for PAIN-SEE DOSE INSTRUCTIONS Prescribed by: JING FERNANDES on 02/17/22 154 Pantoprazole Sodium (Protonix) 40 Mg Tablet.dr, 40 MG PO DAILY, (Reported) Entered as Reported by: DASH VASQUEZ on 01/13/22 0337 Review of Systems Respiratory: no symptoms reported Cardiovascular: no symptoms reported Gastrointestinal: no symptoms reported Genitourinary: no symptoms reported Musculoskeletal: see HPI Skin: see HPI Psychiatric/Neurological: No Symptoms Reported Past Sayoibh-Tmnxio-Irgubm Hx Patient Social History Tobacco Use?: Yes Tobacco type used: Cigarettes Smoking Status: Former Smoker Use of E-Cig and/or Vaping dev: No Substance use?: No Alcohol Use?: Yes Pt feels they are or have been: No Immunizations Up To Date First/Initial COVID19 Vaccinat: unvaccinated Second COVID19 Vaccination Mika: unvaccinated Third COVID19 Vaccination Date: unvaccinated Past Medical History Surgery/Hospitalization HX: htn, cellulitisgerd, dm, high cholesterol, tia Surgeries: Yes (Skin graft on RLE) Respiratory: No Cardiac: Yes High Cholesterol, Hypertension Neurological: No Genitourinary: Yes (STAGE 4 RENAL FAILURE-NO DIALYSIS) Renal Failure Gastrointestinal: No Musculoskeletal: No Endocrine: Yes Diabetes, Insulin dep HEENT: No Cancer: No Psychosocial: No Integumentary: Yes (CHRONIC CELLULITIS OF LEG) Family Medical History Diabetes, Other Conditions/Hx SOCIAL HISTORY: -SMOKED A TEEN, STATES HE QUIT AT AGE 13 -ETOH--USED TO DRINK MODERATELY, NONE FOR A YEAR--PER PT ON 03/30/22 -DRUGS--DENIES USE Physical Exam Vital Signs Vital Signs - First Documented 03/30/22 21:35 Temp 37.2 Pulse 84 Resp 16 B/P (MAP) 136/80 (98) Pulse Ox 100 O2 Delivery Room Air Capillary Refill : Less Than 3 Seconds Height, Weight, BMI Height: '" Weight: lbs. oz. kg; 33.00 BMI Method: General Appearance: WD/WN, no apparent distress, other (UNKEMPT, MALODOROUS. DOES NOT APPEAR ILL OR TO BE IN ANY DISTRESS. TALKS NON-STOP AT LENGTH) Cardiovascular: regular rate, rhythm Respiratory: normal breath sounds Gastrointestinal: non tender, soft Hips: bilateral hip normal inspection Legs: left leg other (2+ EDEMA OF LEFT LEG; DIFFUSE ERYTHEMA, WARMTH, TENDERNESS AND INDURATION TO LEFT LEG--FROM KNEE DOWN TO TOES; MULTIPLE SORES/SCARS/SCABS TO BOTH LEGS, BUT IS MOR PROMINENT ON THE LEFT AT THIS TIME. NONE OF THE AREAS HAVE ANY FLUCTUANCE OR DRAINAGE, AND NONE ARE MORE PAINFUL OR TENDER THAN ANOTHER. 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, alert, normal mood/affect, oriented x 3 Skin: normal color, warm/dry, other ( ABOVE) Progress/Results/Core Measures Results/Orders Lab Results Laboratory Tests Test 03/30/22 22:00 Range/Units White Blood Count 10.3 4.3-11.0 10^3/uL Red Blood Count 4.21 L 4.30-5.52 10^6/uL Hemoglobin 11.7 L 13.3-17.7 g/dL Hematocrit 34 L 40-54 % Mean Corpuscular Volume 82 80-99 fL Mean Corpuscular Hemoglobin 28 25-34 pg Mean Corpuscular Hemoglobin Concent 34 32-36 g/dL Red Cell Distribution Width 13.2 10.0-14.5 % Platelet Count 344 130-400 10^3/uL Mean Platelet Volume 10.4 9.0-12.2 fL Immature Granulocyte % (Auto) 1 % Neutrophils (%) (Auto) 69 42-75 % Lymphocytes (%) (Auto) 19 12-44 % Monocytes (%) (Auto) 8 0-12 % Eosinophils (%) (Auto) 3 0-10 % Basophils (%) (Auto) 1 0-10 % Neutrophils # (Auto) 7.1 1.8-7.8 10^3/uL Lymphocytes # (Auto) 2.0 1.0-4.0 10^3/uL Monocytes # (Auto) 0.8 0.0-1.0 10^3/uL Eosinophils # (Auto) 0.3 0.0-0.3 10^3/uL Basophils # (Auto) 0.1 0.0-0.1 10^3/uL Immature Granulocyte # (Auto) 0.1 0.0-0.1 10^3/uL Erythrocyte Sedimentation Rate > 140 H 0-30 MM/HR Sodium Level 137 135-145 MMOL/L Potassium Level 4.1 3.6-5.0 MMOL/L Chloride Level 100 98-107 MMOL/L Carbon Dioxide Level 21 21-32 MMOL/L Anion Gap 16 H 5-14 MMOL/L Blood Urea Nitrogen 25 H 7-18 MG/DL Estimat Glomerular Filtration Rate 27 BUN/Creatinine Ratio 9 Glucose Level 78 70-105 MG/DL Lactic Acid Level 0.74 0.50-2.00 MMOL/L Calcium Level 9.5 8.5-10.1 MG/DL Corrected Calcium 9.9 8.5-10.1 MG/DL Magnesium Level 2.0 1.6-2.4 MG/DL Total Bilirubin 0.6 0.1-1.0 MG/DL Aspartate Amino Transf (AST/SGOT) 23 5-34 U/L Alanine Aminotransferase (ALT/SGPT) 22 0-55 U/L Alkaline Phosphatase 90 40-136 U/L C-Reactive Protein High Sensitivity 12.00 H 0.00-0.50 MG/DL Total Protein 8.7 H 6.4-8.2 GM/DL Albumin 3.5 3.2-4.5 GM/DL My Orders Orders - GERARDO STOKES DO Ed Iv/Invasive Line Start (03/30/22 21:51) Monitor-Rhythm Ecg Trace Only (03/30/22 21:51) Alcohol (03/30/22 21:51) Cbc With Automated Diff (03/30/22 21:51) Comprehensive Metabolic Panel (03/30/22 21:51) Hs C Reactive Protein (03/30/22 21:51) Fibrin Degradation Products (03/30/22 21:51) Drug Screen Stat (Urine) (03/30/22 21:51) Lactic Acid Analyzer (03/30/22:51) Magnesium (03/30/22 21:51) Procalcitonin (Pct) (03/30/22:51) Protime With Inr (03/30/22:51) Partial Thromboplastin Time (03/30/22 21:51) Ua Culture If Indicated (03/30/22 21:51) Blood Culture (03/30/22:51) Erythrocyte Sedimentation Rate (03/30/22:51) Myoglobin Serum (03/30/22:51) Tibia/Fibula, Left, 2 Views (03/30/22:51) Knee, Left, 3 Views (03/30/22:51) Foot, Left, 3 Views (03/30/22 21:51) Ed Iv/Invasive Line Start (03/30/22 21:51) Ns Iv 1000 Ml (Sodium Chloride 0.9%) (03/30/22 22:00) Piperacillin Sodium/Tazobactam (Zosyn Vi (03/30/22 22:00) Urine Culture (03/30/22 21:51) Ed Iv/Invasive Line Start (03/30/22 21:51) Vital Signs Adult Sepsis Patie Q15M (03/30/22:51) Remove Rings In Anticipation O (03/30/22:51) Ketorolac Injection (Toradol Injection) (03/30/22 22:30) Medications Given in ED Current Medications Medications Dose Ordered Sig/Marilin Route Start Time Stop Time Status Last Admin Dose Admin Ketorolac Tromethamine 30 mg ONCE ONCE IVP 03/30/22 22:30 03/30/22 22:31 DC 03/30/22 22:38 30 MG Piperacillin Sod/ Tazobactam Sod 4.5 gm/Sodium Chloride 100 ml @ 200 mls/hr ONCE ONCE IV 03/30/22 22:00 03/30/22 22:29 DC 03/30/22 22:11 200 MLS/HR Sodium Chloride 1,000 ml @ 0 mls/hr Q0M ONCE IV 03/30/22 22:00 03/30/22 22:01 DC 03/30/22 22:11 0 MLS/HR Vital Signs/I&O 03/30/22 21:35 Temp 37.2 Pulse 84 Resp 16 B/P (MAP) 136/80 (98) Pulse Ox 100 O2 Delivery Room Air Blood Pressure Mean: 98 Progress Progress Note : Progress Note SEPSIS PROTOCOL INITIATED GIVEN: -IV FLUIDS -ANTIBIOTICS -PAIN MEDICATION FOCUS EXAM AT 2245 UNCHANGED FROM ARRIVAL DOES NOT MEET CRITERIA FOR SEPSIS Diagnostic Imaging Comments XRAYS--PER RADIOLOGIST REPORTS AT 2239 LEFT KNEE--FINDINGS: No acute fracture or dislocation is seen in the left knee. Alignment is normal. No cortical erosion is seen. Joint spaces are preserved and there is no joint effusion seen. There is mild soft tissue swelling about the left knee. IMPRESSION: Mild soft tissue swelling about the left knee with no acute osseous abnormality seen. LEFT TIB-FIB--FINDINGS: No acute fracture or dislocation is seen in the left tibia or fibula. Alignment appears normal. Joint spaces are preserved. No erosion is seen. There is mild edema in the leg. There is calcific atherosclerosis. IMPRESSION: No acute osseous abnormality is seen in the left tibia and fibula. There is mild edema in the left leg. LEFT FOOT--FINDINGS: No acute osseous abnormality is seen in the left foot. Alignment appears normal. Joint spaces are preserved. No cortical erosion is seen. There is moderate soft tissue swelling about the left foot. There is calcific atherosclerosis. No soft tissue gas is seen. IMPRESSION: Moderate soft tissue swelling in the left foot with no acute osseous abnormality seen. Reviewed: Reviewed by Me Departure Impression Primary Impression: Left leg cellulitis Additional Impressions: Chronic kidney disease IDDM (insulin dependent diabetes mellitus) Departure-Patient Inst. Referrals: CARRIE ALONSO APRN (PCP/Family) Primary Care Physician GERARDO STOKES DO Mar 30, 2022 22:03
[2022-03-30 22:20] LABS: BASOPHILS # (AUTO) 0.1 10^3/uL (0.0-0.1); BASOPHILS % (AUTO) 1 % (0-10); EOSINOPHILS # (AUTO) 0.3 10^3/uL (0.0-0.3); EOSINOPHILS % (AUTO) 3 % (0-10); HEMATOCRIT 34 % (40-54); HEMOGLOBIN 11.7 g/dL (13.3-17.7); LYMPHOCYTES % (AUTO) 19 % (12-44); MEAN CORPUSCULAR HEMOGLOBIN 28 pg (25-34); MEAN CORPUSCULAR HGB CONC 34 g/dL (32-36); MEAN CORPUSCULAR VOLUME 82 fL (80-99); MEAN PLATELET VOLUME 10.4 fL (9.0-12.2); MONOCYTES # (AUTO) 0.8 10^3/uL (0.0-1.0); MONOCYTES % (AUTO) 8 % (0-12); NEUTROPHILS # (AUTO) 7.1 10^3/uL (1.8-7.8); NEUTROPHILS % (AUTO) 69 % (42-75); PLATELET COUNT 344 10^3/uL (130-400); WHITE BLOOD COUNT 10.3 10^3/uL (4.3-11.0)
[2022-03-30] MEDS ORDERED: KETOROLAC 30 MG/ML VIAL IVP ONE (22:30)
--- NOTE | 2022-03-30 22:31 | Diagnostic Imaging Report ---
HISTORY: Cellulitis, left knee pain. COMPARISON: 02/09/2022. TECHNIQUE: 3 views of the left knee. FINDINGS: No acute fracture or dislocation is seen in the left knee. Alignment is normal. No cortical erosion is seen. Joint spaces are preserved and there is no joint effusion seen. There is mild soft tissue swelling about the left knee. IMPRESSION: Mild soft tissue swelling about the left knee with no acute osseous abnormality seen. Dictated by: Dictated on workstation # [id number]
--- NOTE | 2022-03-30 22:33 | Diagnostic Imaging Report ---
HISTORY: Cellulitis and pain in the left leg. TECHNIQUE: 2 views of the left tibia and fibula. COMPARISON: None. FINDINGS: No acute fracture or dislocation is seen in the left tibia or fibula. Alignment appears normal. Joint spaces are preserved. No erosion is seen. There is mild edema in the leg. There is calcific atherosclerosis. IMPRESSION: No acute osseous abnormality is seen in the left tibia and fibula. There is mild edema in the left leg. Dictated by: Dictated on workstation # [id number]
--- NOTE | 2022-03-30 22:34 | Diagnostic Imaging Report ---
HISTORY: Left foot pain, synovitis. TECHNIQUE: 3 views of the left foot. COMPARISON: 01/12/2022. FINDINGS: No acute osseous abnormality is seen in the left foot. Alignment appears normal. Joint spaces are preserved. No cortical erosion is seen. There is moderate soft tissue swelling about the left foot. There is calcific atherosclerosis. No soft tissue gas is seen. IMPRESSION: Moderate soft tissue swelling in the left foot with no acute osseous abnormality seen. Dictated by: Dictated on workstation # [id number]
[2022-03-30 22:36] LABS: FIBRIN DEGRADATION PRODUCTS 1.02 UG/ML (0.00-0.49); INR 1.1 (0.8-1.4); PROTHROMBIN TIME PATIENT 14.3 SEC (12.2-14.7)
[2022-03-30 22:47] LABS: ALANINE AMINOTRANSFERASE 22 U/L (0-55); ALBUMIN 3.5 GM/DL (3.2-4.5); ALKALINE PHOSPHATASE 90 U/L (40-136); BILIRUBIN,TOTAL 0.6 MG/DL (0.1-1.0); BUN/CREATININE RATIO 9; CALCIUM 9.5 MG/DL (8.5-10.1); CARBON DIOXIDE 21 MMOL/L (21-32); CHLORIDE 100 MMOL/L (98-107); CREATININE SERUM 2.69 MG/DL (0.60-1.30); GFR ESTIMATED 27; GLUCOSE 78 MG/DL (70-105); POTASSIUM 4.1 MMOL/L (3.6-5.0); SODIUM 137 MMOL/L (135-145); TOTAL PROTEIN 8.7 GM/DL (6.4-8.2)
[2022-03-30 22:53] LABS: ERYTHROCYTE SEDIMENTATION RATE > 140 MM/HR (0-30)
[2022-03-30] MEDS ORDERED: ENOXAPARIN 100 MG/1 ML (LOVENOX) SYR SC ONE (23:15)
[2022-03-31 00:28] VITALS: BP 164/78
[2022-03-31] MEDS ORDERED: ONDANSETRON 4 MG/2 ML (SDV) Z0FRAN IV PRN (00:45)
[2022-03-31] MEDS ORDERED: ACETAMINOPHEN 500 MG TAB (TYLENOL) PO PRN (00:45)
[2022-03-31] MEDS: LINEZOLID 600MG/300ML IVPB (PRE-MIX) IV SCH ×2 (01:32→11:41)
[2022-03-31] MEDS: fentaNYL INJ 100 MCG/2 ML AMP IV PRN ×2 (01:32→13:19)
[2022-03-31] MEDS: NS IV 1000 ML 1,000 ML IV SCH ×4 (01:32→18:57)
[2022-03-31 04:39] LABS: BILIRUBIN,URINE NEGATIVE (NEGATIVE); CLARITY,URINE CLEAR; COLOR,URINE YELLOW; GLUCOSE, URINE (UA) TRACE (NEGATIVE); KETONES,URINE NEGATIVE (NEGATIVE); LEUKOCYTE ESTERASE ,URINE NEGATIVE (NEGATIVE); NITRITE,URINE NEGATIVE (NEGATIVE); PROTEIN,URINE 3+ (NEGATIVE)
[2022-03-31 04:43] VITALS: BP 155/82
[2022-03-31 04:46] LABS: BACTERIA,URINE TRACE /HPF; RBC,URINE 0-2 /HPF
[2022-03-31 04:52] LABS: AMPHETAMINE SCREEN, URINE NEGATIVE (NEGATIVE); BARBITURATE SCREEN URINE NEGATIVE (NEGATIVE); BENZODIAZEPINES SCREEN URINE NEGATIVE (NEGATIVE); CANNABINOID SCREEN, URINE NEGATIVE (NEGATIVE); COCAINE SCREEN URINE NEGATIVE (NEGATIVE); METHADONE STAT NEGATIVE (NEGATIVE); OPIATE SCREEN URINE NEGATIVE (NEGATIVE); OXYCODONE STAT NEGATIVE (NEGATIVE); PROPOXYPHENE STAT NEGATIVE (NEGATIVE); TRICYCLIC ANTIDEPRESSANTS SCRE NEGATIVE (NEGATIVE)
[2022-03-31 05:27] LABS: BASOPHILS # (AUTO) 0.1 10^3/uL (0.0-0.1); BASOPHILS % (AUTO) 1 % (0-10); EOSINOPHILS # (AUTO) 0.3 10^3/uL (0.0-0.3); EOSINOPHILS % (AUTO) 3 % (0-10); HEMATOCRIT 30 % (40-54); HEMOGLOBIN 10.1 g/dL (13.3-17.7); LYMPHOCYTES # (AUTO) 2.1 10^3/uL (1.0-4.0); LYMPHOCYTES % (AUTO) 24 % (12-44); MEAN CORPUSCULAR HEMOGLOBIN 27 pg (25-34); MEAN CORPUSCULAR HGB CONC 34 g/dL (32-36); MEAN CORPUSCULAR VOLUME 81 fL (80-99); MEAN PLATELET VOLUME 9.6 fL (9.0-12.2); MONOCYTES # (AUTO) 0.9 10^3/uL (0.0-1.0); MONOCYTES % (AUTO) 10 % (0-12); NEUTROPHILS # (AUTO) 5.2 10^3/uL (1.8-7.8); NEUTROPHILS % (AUTO) 61 % (42-75); PLATELET COUNT 225 10^3/uL (130-400); WHITE BLOOD COUNT 8.6 10^3/uL (4.3-11.0)
[2022-03-31 05:51] LABS: ALBUMIN 2.9 GM/DL (3.2-4.5); BILIRUBIN,TOTAL 0.6 MG/DL (0.1-1.0); CALCIUM 8.7 MG/DL (8.5-10.1); CREATININE SERUM 2.54 MG/DL (0.60-1.30); POTASSIUM 3.6 MMOL/L (3.6-5.0)
[2022-03-31] MEDS: inSUlin ASPART (NovoLOG) 1 UNIT/0.01 ML (CHARGE PER UNIT) SC SCH ×7 (06:02→20:16)
[2022-03-31] MEDS: PIPERACILLIN SODIUM/TAZOBACTAM 4.5 GM in NS (IVPB) 100 ML IV SCH ×3 (06:14→20:35)
[2022-03-31 07:50] VITALS: BP 171/83
[2022-03-31] MEDS ORDERED: inSUlin ASPART (NovoLOG) 1 UNIT/0.01 ML (CHARGE PER UNIT) SC SCH (09:00)
--- NOTE | 2022-03-31 10:19 | History & Physical-Hospitalist ---
History of Present Illness HPI/Chief Complaint Patient reports he has had recurrent bouts of cellulitis manifesting as left leg swelling and pain ever since December. When he goes off of antibiotics within a few days to a week he will notice increasing left lateral superior knee pain he then develops increased swelling and erythema from that level down to the feet. This last episode began 2 or 3 days prior to admission he reported loss of appetite but denied chills fever or shortness of breath. Several weeks ago he was hospitalized with rather abrupt onset of difficulty with speech scans compatible with what he reported as a small infarct. He is right-handed he reported no other deficits was started on aspirin and atorvastatin. He has a longstanding history of type 2 diabetes that is insulin requiring and wears a continuous glucose monitor reporting that his blood sugars have been under good control mostly under 150 he reports that he gets under 100 he feels weak and shaky. Past medical history is significant for chronic renal disease secondary to his diabetes and hypertension for which she has been taking 2.5 mg of amlodipine. He has had recurrent skin infections in the past 1 episode following a puncture wound to the left hand with subsequent abscess formation involving the palm did require outpatient antibiotics for several weeks this was quite a number of years ago however he has no past history for endocarditis. Date Seen 03/31/22 Time Seen by a Provider: 10:16 Attending Physician Yeimy Iqbal Aprn PCP Admitting Physician: Patito Pandya MD Attending Physician: Patito Pandya MD Referring Physician Date of Admission Mar 30, 2022 at 23:15 Home Medications & Allergies Home Medications Reviewed patient Home Medication Reconciliation performed by pharmacy medication reconciliations network support technician and/or nursing. Patients Allergies have been reviewed. Allergies Allergies Coded Allergies vancomycin (Verified Allergy, Unknown, 03/30/21) cocaine (Unverified Adverse Reaction, Unknown, 11/13/21) Past Hduyttb-Yxbddg-Mkjikd Hx Patient Social History Tobacco Use?: No Tobacco type used: Cigarettes Smoking Status: Former Smoker Smokeless type used: Pouch Smokeless Tobacco Frequency: Light User Use of E-Cig and/or Vaping dev: No Substance use?: No Alcohol Use?: No Pt feels they are or have been: No Immunizations Up To Date First/Initial COVID19 Vaccinat: unvaccinated Second COVID19 Vaccination Mika: unvaccinated Tetanus Booster (TDap): Unknown Current Status Advance Directives: No Communicates: Verbally Primary Language: Burmese Preferred Spoken Language: Burmese Is interpretation needed?: No Sensory deficits: Vision impairment Past Medical History High Cholesterol, Hypertension Renal Failure Diabetes, Insulin dep Family Medical History Diabetes, Other Conditions/Hx SOCIAL HISTORY: -SMOKED A TEEN, STATES HE QUIT AT AGE 13 -ETOH--USED TO DRINK MODERATELY, NONE FOR A YEAR--PER PT ON 03/30/22 -DRUGS--DENIES USE Review of Systems Constitutional: see HPI Physical Exam Physical Exam Vital Signs Vital Signs - First Documented 03/30/22 21:35 Temp 37.2 Pulse 84 Resp 16 B/P (MAP) 136/80 (98) Pulse Ox 100 O2 Delivery Room Air Capillary Refill : Less Than 3 Seconds Height, Weight, BMI Height: '" Weight: lbs. oz. kg; 34.54 BMI Method: General Appearance: No Apparent Distress, Obese Neck: Full Range of Motion, Normal Inspection, Non Tender Respiratory: Chest Non Tender, Lungs Clear, Normal Breath Sounds, No Accessory Muscle Use, No Respiratory Distress Cardiovascular: Regular Rate, Rhythm, No Edema, No Gallop, No JVD, No Murmur, Normal Peripheral Pulses Gastrointestinal: Normal Bowel Sounds, No Organomegaly, No Pulsatile Mass, Non Tender, Soft Extremity: Other (1-2+ edema of the left lower extremity from the lateral dis caridad tibia down. There is no evidence for significant knee effusion there is some warmth over the left lateral distal tibia there is no pain over the medial joint line with normal range of motion. There are some small fissures some hyperkeratosis of the bottoms of the feet but no open sores no drainage) Neurologic/Psychiatric: Other ( diminished sensation of the feet bilaterally and mild dysarthria otherwise unremarkable neuro exam.) Results Results/Procedures Labs Laboratory Tests 03/30/22 22:00 03/31/22 05:15 Patient resulted labs reviewed. Assessment/Plan Admission Diagnosis 1. While clearly there is a component of cellulitis the recurrent nature of his infectious symptoms off antibiotics and severe sed rate elevation of 120 as well as high CRP suggests underlying bone or soft tissue infection despite negative plain films of the knee tibia and foot. Will obtain MRI of the knee with attention to the distal lateral femur with orthopedic consultation. The patient is responding to antibiotics reporting there is less pain swelling and redness compared to yesterday we will continue linezolid and Zosyn for now. 2. Insulin requiring type 2 diabetes we will continue basal bolus insulin slightly lower dose the patient is used to taking at home and monitor blood sugars. 3. Stage III chronic renal disease secondary to combination of diabetes and hypertension. 4. 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 Hypertension continue amlodipine. Admission Status: Inpatient Order (span 2 midnights) Reason for Inpatient Admission: See above PATITO PANDYA MD Mar 31, 2022 10:19
[2022-03-31] MEDS ORDERED: amLODIPine 2.5MG (NORVASC) TAB PO NR (10:30)
[2022-03-31] MEDS ORDERED: ASPIRIN E.C. 81 MG (ECOTRIN) TAB PO NR (10:30)
[2022-03-31] MEDS ORDERED: ENOXAPARIN 100 MG/1 ML (LOVENOX) SYR SC SCH (11:30)
[2022-03-31 12:00] VITALS: BP 168/87
--- NOTE | 2022-03-31 15:47 | Consultation - Ortho ---
Consult - Ortho Subjective Date of Exam 03/31/22 Chief Complaint Left leg swelling/pain HPI/Events since last exam chronic difficulty, prior treatment with antibiotics, negative x-rays, I was asked to evaluate Medical, Surgical History see admit Social History see admit Family History see admit Review of Systems see admit Allergies: Coded Allergies: vancomycin (Verified Allergy, Unknown, 03/30/21) cocaine (Unverified Adverse Reaction, Unknown, 11/13/21) Home Meds Active Scripts Amoxicillin/Potassium Clav (Amox Tr-K Clv 875-125 mg Tab) 875 Mg-125 Mg Tablet, 1 EACH PO BID, #10 TAB Prov:JING FERNANDES [employer] CONSULTANT 02/17/22 Oxycodone Hcl (OXYIR TABLET) 5 Mg Tab, 5 MG PO Q4HR PRN for PAIN-SEE DOSE INSTRUCTIONS, #15 TAB Prov:JING FERNANDES [employer] CONSULTANT 02/17/22 Linezolid (Linezolid) 600 Mg Tablet, 600 MG PO BID, #10 TAB Prov:JING FERNANDES [employer] PIECE CONSULTANT 02/17/22 Gabapentin (Gabapentin) 800 Mg Tablet, 800 MG PO HS, #30 TAB Prov:MONTSERRAT BARNETT DO 01/16/22 Amlodipine Besylate (Amlodipine Besylate) 2.5 Mg Tablet, 2.5 MG PO DAILY, #30 TAB Prov:MONTSERRAT BARNETT DO 01/16/22 Lactobacillus Acidophilus/Pect (Acidophilus-Pectin Capsule) 75 Million Cell-100 Mg Capsule, 2 EACH PO TIDWM, #30 CAP Prov:MONTSERRAT BARNETT DO 01/16/22 Atorvastatin Calcium (Lipitor) 40 Mg Tablet, 40 MG PO DAILY, #30 TAB Prov:MONTSERRAT BARNETT DO 01/16/22 Insulin Aspart (Novolog Flexpen) 100 Unit/Ml (3 Ml) Solution, 8 UNITS SC TIDWM for 7 Days, EA Prov:MONTSERRAT BARNETT DO 01/16/22 Insulin Glargine,Hum.rec.anlog (Basaglar Kwikpen U-100) 100 Unit/Ml (3 Ml) Insuln.pen, 12 UNIT SQ BID for 7 Days, EA Prov:MONTSERRAT BARNETT DO 01/16/22 Reported Medications Acetaminophen (Tylenol Arthritis) 650 Mg Tablet.er, 1300 MG PO DAILY TAKES 2 (650MG) TABS 7/25/22 Folic Acid/Multivit-Min/Lutein (Multi-Vitamin Gummies) 200 Mcg-137.5 Mcg Tab.chew, 1 EACH PO DAILY, TAB 01/14/22 Docusate Sodium (Docusate Sodium) 100 Mg Capsule, 100 MG PO DAILY PRN for CONSTIPATION-1ST LINE, CAP 01/14/22 Gemfibrozil (Lopid) 600 Mg Tablet, 600 MG PO BID, TAB 01/13/22 Pantoprazole Sodium (Protonix) 40 Mg Tablet.dr, 40 MG PO DAILY, TAB 01/13/22 Albuterol Sulfate (PROAIR HFA) 1 Puff Puff, 2 PUFF IH Q4H, EA 1 PUFF = 90 MCG 01/13/22 Glucagon (Gvoke Hypopen 2-Pack) 1 Mg/0.2 Ml Auto.injct, 1 MG SQ PRN for Hypoglycemia, ML 01/13/22 Aspirin (Aspirin EC) 81 Mg Tablet.dr, 81 MG PO DAILY, TAB 01/13/22 Objective Exam Left Leg: knee without effusion, full motion of knee without pain, no tenderness to palpation throughout leg, no obvious fluctuant areas Vital Signs Vital Signs Date Time Temp Pulse Resp B/P (MAP) Pulse Ox O2 Delivery O2 Flow Rate FiO2 03/31/22 15:52 36.5 73 17 169/88 (115) 96 Room Air 03/31/22 12:43 74 03/31/22 12:00 36.5 76 18 168/87 (114) 99 Room Air 03/31/22 08:00 98 Room Air 03/31/22 07:50 36.1 71 16 171/83 (112) 98 Room Air 03/31/22 07:00 70 03/31/22 04:43 36.3 69 20 155/82 (106) 98 Room Air 03/31/22 01:39 Room Air 03/31/22 00:44 78 03/31/22 00:28 36.6 78 18 164/78 (106) 95 Room Air 03/30/22 23:57 36.7 79 12 146/96 97 Room Air 03/30/22 21:35 37.2 84 16 136/80 (98) 100 Room Air I & O 03/31/22 07:00 Intake Total 1400 ml Output Total 600 ml Balance 800 ml Lab Results Laboratory Tests 03/30/22 22:00: White Blood Count 10.3, Red Blood Count 4.21L, Hemoglobin 11.7L, Hematocrit 34L, Mean Corpuscular Volume 82, Mean Corpuscular Hemoglobin 28, Mean Corpuscular Hemoglobin Concent 34, Red Cell Distribution Width 13.2, Platelet Count 344, Mean Platelet Volume 10.4, Immature Granulocyte % (Auto) 1, Neutrophils (%) (Auto) 69, Lymphocytes (%) (Auto) 19, Monocytes (%) (Auto) 8, Eosinophils (%) (Auto) 3, Basophils (%) (Auto) 1, Neutrophils # (Auto) 7.1, Lymphocytes # (Auto) 2.0, Monocytes # (Auto) 0.8, Eosinophils # (Auto) 0.3, Basophils # (Auto) 0.1, Immature Granulocyte # (Auto) 0.1, Erythrocyte Sedimentation Rate > 140H, Prothrombin Time 14.3, INR Comment 1.1, Activated Partial Thromboplast Time 20L, D-Dimer 1.02H, Sodium Level 137, Potassium Level 4.1, Chloride Level 100, Carbon Dioxide Level 21, Anion Gap 16H, Blood Urea Nitrogen 25H, Creatinine 2.69H, Estimat Glomerular Filtration Rate 27, BUN/Creatinine Ratio 9, Glucose Level 78, Lactic Acid Level 0.74, Calcium Level 9.5, Corrected Calcium 9.9, Magnesium Level 2.0, Total Bilirubin 0.6, Aspartate Amino Transf (AST/SGOT) 23, Alanine Aminotransferase (ALT/SGPT) 22, Alkaline Phosphatase 90, Myoglobin 124.4H, C- Reactive Protein High Sensitivity 12.00H, Total Protein 8.7H, Albumin 3.5, Beta- Hydroxybutyrate (Chem panel) 0.09, Procalcitonin 0.22H, Serum Alcohol < 10 03/31/22 00:00: Urine Color YELLOW, Urine Clarity CLEAR, Urine pH 6.0, Urine Specific [place] 1.025H, Urine Protein 3+H, Urine Glucose (UA) TRACEH, Urine Ketones NEGATIVE, Urine Nitrite NEGATIVE, Urine Bilirubin NEGATIVE, Urine Urobilinogen 2.0, Urine Leukocyte Esterase NEGATIVE, Urine RBC (Auto) TRACE-IH, Urine RBC 0-2, Urine WBC NONE, Urine Squamous Epithelial Cells NONE, Urine Crystals NONE, Urine Bacteria TRACE, Urine Casts NONE, Urine Mucus NEGATIVE, Urine Culture Indicated CULTURE PENDING, Urine Opiates Screen NEGATIVE, Urine Oxycodone Screen NEGATIVE, Urine Methadone Screen NEGATIVE, Urine Propoxyphene Screen NEGATIVE, Urine Barbitur ates Screen NEGATIVE, Ur Tricyclic Antidepressants Screen NEGATIVE, Urine Phencyclidine Screen NEGATIVE, Urine Amphetamines Screen NEGATIVE, Urine Methamphetamines Screen NEGATIVE, Urine Benzodiazepines Screen NEGATIVE, Urine Cocaine Screen NEGATIVE, Urine Cannabinoids Screen NEGATIVE 03/31/22 05:15: White Blood Count 8.6, Red Blood Count 3.70L, Hemoglobin 10.1L, Hematocrit 30L, Mean Corpuscular Volume 81, Mean Corpuscular Hemoglobin 27, Mean Corpuscular Hemoglobin Concent 34, Red Cell Distribution Width 13.0, Platelet Count 225, Mean Platelet Volume 9.6, Immature Granulocyte % (Auto) 0, Neutrophils (%) (Auto) 61, Lymphocytes (%) (Auto) 24, Monocytes (%) (Auto) 10, Eosinophils (%) (Auto) 3, Basophils (%) (Auto) 1, Neutrophils # (Auto) 5.2, Lymphocytes # (Auto) 2.1, Monocytes # (Auto) 0.9, Eosinophils # (Auto) 0.3, Basophils # (Auto) 0.1, Immature Granulocyte # (Auto) 0.0, Sodium Level 139, Potassium Level 3.6, Chloride Level 105, Carbon Dioxide Level 22, Anion Gap 12, Blood Urea Nitrogen 25H, Creatinine 2.54H, Estimat Glomerular Filtration Rate 29, BUN/Creatinine Ratio 10, Glucose Level 93, Calcium Level 8.7, Corrected Calcium 9.6, Total Bilirubin 0.6, Aspartate Amino Transf (AST/SGOT) 16, Alanine Aminotransferase (ALT/SGPT) 18, Alkaline Phosphatase 75, Total Protein 7.0, Albumin 2.9L Microbiology 03/30/22 Blood Culture - Preliminary, Resulted No growth Assessment and Plan Assessment Chronic cellultis difficulty, possible underlying osteomyelitis Problem List Chronic cellultis difficulty, possible underlying osteomyelitis Plan Agree with MRI to assess bone Consider infectious disease consultation Currently no role for surgical intervention Final Diagonsis Chronic cellultis difficulty, possible underlying osteomyelitis Level of the visit: Level 3 (not billable) JENSEN MARIO MD Mar 31, 2022 15:47
[2022-03-31 15:52] VITALS: BP 169/88
[2022-03-31 20:09] VITALS: BP 174/81
[2022-03-31] MEDS ORDERED: GABAPENTIN 600 MG (NEURONTIN) TAB PO SCH (21:00)
[2022-04-01] VITALS (9 sets, daily range): BP systolic 163–198; BP diastolic 80–98
[2022-04-01] MEDS: LINEZOLID 600MG/300ML IVPB (PRE-MIX) IV SCH ×2 (00:40→12:19)
[2022-04-01] MEDS: NS IV 1000 ML 1,000 ML IV SCH ×4 (03:49→21:42)
[2022-04-01] MEDS: inSUlin ASPART (NovoLOG) 1 UNIT/0.01 ML (CHARGE PER UNIT) SC SCH ×7 (05:11→21:35)
[2022-04-01] MEDS: PIPERACILLIN SODIUM/TAZOBACTAM 4.5 GM in NS (IVPB) 100 ML IV SCH ×3 (05:11→21:39)
--- NOTE | 2022-04-01 08:58 | Diagnostic Imaging Report ---
PROCEDURE: US left lower extremity venous. TECHNIQUE: Multiple real-time grayscale images were obtained over the left lower extremity in various projections. Additional duplex Doppler and color Doppler images were also obtained. INDICATION: Left lower extremity swelling and ulceration EXAMINATION: Grayscale and color Doppler evaluation of the deep veins of the left lower extremity were performed with waveform analysis. FINDINGS: Continuous venous flow is present. No intraluminal filling defect is identified. There is normal compressibility and response to augmentation. No abnormal perivascular fluid collection is identified. IMPRESSION: No ultrasound evidence of left lower extremity deep venous thrombosis. Dictated by: Dictated on workstation # [id number]
[2022-04-01] MEDS ORDERED: amLODIPine 2.5MG (NORVASC) TAB PO SCH (09:00)
[2022-04-01] MEDS: ASPIRIN E.C. 81 MG (ECOTRIN) TAB PO SCH (09:34)
--- NOTE | 2022-04-01 10:10 | Progress Note ---
Subjective Subjective/Events-last exam Pt states he had onset 2-3 days ago of swelling and redness in left leg. He has had recurrent issues with this since December, but also around yearly prior to that. He believes he had some kind of vascular study last year at [facility] but doesn't know what and doesn't think it involved cath. Focused Exam Lactate Level 03/30/22 22:00: Lactic Acid Level 0.74 Objective Exam Last Set of Vital Signs Vital Signs Date Time Temp Pulse Resp B/P (MAP) Pulse Ox O2 Delivery O2 Flow Rate FiO2 04/01/22 08:00 36.0 71 17 177/89 (118) 98 Room Air Capillary Refill : Less Than 3 Seconds I&O Intake and Output 04/01/22 00:00 Intake Total 1858 ml Output Total 1400 ml Balance 458 ml Intake Oral 1858 ml Output Urine Total 1400 ml # Voids 3 # Bowel Movements 3 Daily Weight Change No General: Alert, No Acute Distress Lungs: Clear to Auscultation, Normal Air Movement Heart: Regular Rate, No Murmurs Abdomen: Normal Bowel Sounds, Soft Extremities: Other (left lower leg with 1+ edema to knee, faint erythema from just above knee to foot, 2+ pedal pulse. Several scabbed lesions on lower leg and thick/dry split skin in multiple areas on sole of foot, right lower leg with scabbed lesions, no erythema or edema; 2+ pedal pulses bilaterally) Neuro: Normal Speech Psych/Mental Status: Mood NL Results/Procedures Lab Microbiology 03/30/22 Blood Culture - Preliminary, Resulted No growth Assessment/Plan Assessment/Plan (1) Left leg cellulitis Status: Acute Assessment & Plan: Without sepsis. Recurrent over years, more frequent in last few months. CT this fall without abnormality. DVT US negative this admission. Had arterial US done 01/2020 in [place], do not find more recent vascular study, will repeat US. MRI pending due to severity of elevation in ESR and recurrent nature to eval for osteomyelitis. Started on linezolid and pip/tazo on admit, pt reporting improvement. (2) IDDM (insulin dependent diabetes mellitus) Status: Chronic Assessment & Plan: Resume mealtime and long acting insulin, doses inpatient are slightly lower than home, will adjust as needed. Diabetic diet. (3) Diabetes mellitus with retinopathy Status: Chronic Assessment & Plan: Patient reports treatment had improved, but has loss of vision again after his stroke, will follow up with Optho. 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 Reports slight residual difficulty articulating and some leaking fluid when he drinks from the left side of his mouth. (6) Hypertension Status: Chronic Assessment & Plan: Resume home meds. (7) Hyperlipidemia Status: Chronic Assessment & Plan: Resume home statin (8) DVT prophylaxis Status: Acute Assessment & Plan: PTD enoxaparin vs heparin per GFR. VADIM RAMOS MD Apr 01, 2022 10:10
[2022-04-01] MEDS ORDERED: MIRT-68 PO (11:02)
[2022-04-01] MEDS ORDERED: ASPI-999 PO (11:02)
[2022-04-01] MEDS ORDERED: ERGO1250 PO (11:03)
[2022-04-01] MEDS ORDERED: CLOP75TA28 PO (11:03)
[2022-04-01] MEDS ORDERED: ATOR40TA70 PO (11:03)
[2022-04-01] MEDS ORDERED: INSU100I34 SQ (11:05)
[2022-04-01] MEDS ORDERED: FURO40TA4 PO (11:05)
[2022-04-01] MEDS ORDERED: LISI40TA9 PO (11:05)
[2022-04-01] MEDS ORDERED: AMLO-250 PO (11:09)
[2022-04-01] MEDS ORDERED: GLUC3SPR (11:09)
[2022-04-01] MEDS ORDERED: GABA800T10 PO (11:09)
[2022-04-01] MEDS ORDERED: INSU100I14 SQ (11:10)
[2022-04-01] MEDS ORDERED: GLUC1AUT2 SQ (11:14)
[2022-04-01] MEDS ORDERED: RT-ALBUTEROL SULF 2.5 MG/3 ML PRE-MIX VIAL IH PRN (12:00)
[2022-04-01] MEDS ORDERED: DOCUSATE SODIUM 100 MG (COLACE) CAP PO PRN (12:00)
--- NOTE | 2022-04-01 12:28 | Wound Care Assessment ---
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 He notes that he has had ulcerations on b/l LE for many years. He admits to picking at these areas constantly (his nails are very dirty and long). He also admits to dry, flaking skin to bilateral feet which peel frequently. He has been using a steroid cream to his feet for a long while. He has seen an infectious disease physician in the remote past as well as dermatology but this has been "years ago". He notes that the steroid cream was initiated by Dermatology a long while ago. He does have underlying DM2 (on CGM) and CKD stage 4. He follows with nephrology in [place]. On admit he was noted to have swelling left foot (patient states this is chronic) and erythema/induration to left knee/lower lateral thigh. There is no wound associated with this area of erythema. Labs revealed significant elevation of ESR and CRP. Plain films were negative for harley infection or subcutaneous gas. MRI is pending and venous doppler negative for DVT. There is certainly a component of psychogenic picking to his case but I do wonder if underlying psoriasis or other autoimmune condition may be present and contributing. If MRI is positive, I agree that ID should be considered. However, I do think a dermatology or rheumatology referral is also warranted upon discharge due to chronicity and ineffectiveness of topical steroids. Will order dressings accordingly. Past Medical History: Admits Diabetes Type II Smoking Status: Former Smoker Exam Vital Signs Date Time Temp Pulse Resp B/P (MAP) Pulse Ox O2 Delivery O2 Flow Rate FiO2 04/01/22 12:19 36.5 78 19 187/94 (125) 98 Room Air Capillary Refill : Less Than 3 Seconds General Appearance: WD/WN, no apparent distress, obese, other (Poor personal hygiene) Neck: full range of motion Cardiovascular: other (L. pedal edema) Respiratory: no respiratory distress, no accessory muscle use Extremities: normal range of motion, pedal edema, swelling Neurologic/Psychiatric: alert, normal mood/affect, oriented x 3 Skin: normal color, warm/dry, rash (Left lateral thigh superior to knee) Wound assessment: RLE: 2x2x0.1cm. The epithelialization is none. There is no tunneling or undermining. Drainage is none. Granulation is none. Necrotic is none. Margins are flat. Results Laboratory Tests 04/01/22 11:31: Glucometer 130H Microbiology 03/31/22 Urine Culture - Final, Complete NO GROWTH 03/30/22 Blood Culture - Preliminary, Resulted No growth Microbiology 03/31/22 Urine Culture - Final, Complete NO GROWTH 03/30/22 Blood Culture - Preliminary, Resulted No growth 03/30/22 Blood Culture - Preliminary, Resulted No growth Assessment/Plan/Dx Assessment: 1. Non-pressure ulcers b/l calves 2. Cellulitis left thigh 3. DM2 4. PEM 5. CKD stage 4 6. Obesity 7. Dermititis (possible psoriasis) 8. Pedal edema Plan: 1. Cleanse daily. Wash feet with soap and water. Apply Xeroform to open wound bed. Cover with BFD or ABD and tape. Change daily. Keep nails trimmed to prevent new injury 2. Agree with antibiotics and MRI testing to rule out osteomyelitis. If positi ve, ID referral warranted. 3. Good glycemic control warranted. Defer to PCP 4. Glucerna tid 5. Defer to PCP 6. Weight loss warranted 7. Consider referral to dermatology or rheumatology as outpatient 8. Defer to PCP WALLY REED MD Apr 01, 2022 12:28
[2022-04-01] MEDS ORDERED: VITAMIN D2 1.25 MG (50,000 UNITS) CAP PO SCH (12:30)
--- NOTE | 2022-04-01 13:48 | Diagnostic Imaging Report ---
MRI LT LOWER EXT JOINT W/O TECHNIQUE: Multiplanar, multisequence MR imaging of the left knee was performed without contrast. COMPARISON: Left knee radiographs of 03/30/2022. INDICATION: Knee pain and swelling. FINDINGS: MENISCI Medial meniscus: Normal. Lateral meniscus: Normal. LIGAMENTS ACL: Intact. PCL: Intact. MCL: Intact. LCL: The lateral collateral ligamentous complex is intact. EXTENSOR MECHANISM The extensor mechanism is intact. CARTILAGE Medial compartment: Medial compartment articular cartilage is well preserved without focal high-grade chondromalacia. Lateral compartment: The lateral compartment articular cartilage is preserved without high-grade chondromalacia. Patellofemoral compartment: There is a focus of full-thickness chondral fissuring at the central trochlear groove. Remainder of the articular cartilage throughout the patellofemoral compartment is preserved. BONE No fracture or concerning marrow-replacing process. SOFT TISSUE No knee joint effusion. No Jolley's cyst. Subcutaneous swelling is present along the anterior aspect of the knee and extending more laterally in the proximal lower leg. No loculated fluid collection to indicate drainable abscess. IMPRESSION: 1. Subcutaneous edema and/or cellulitis is located along the anterior and lateral aspect of the knee. No loculated fluid collection that would indicate drainable abscess. 2. No osteomyelitis. 3. No meniscal tear. 4. Solitary focus of high-grade partial-thickness chondral fissuring in the trochlea. Otherwise, cartilage throughout the knee is well preserved. Dictated by: Dictated on workstation # [id number]
--- NOTE | 2022-04-01 16:57 | Diagnostic Imaging Report ---
EXAMINATION: US Lower Extremity Arterial Duplex Left. TECHNIQUE: Multiple real-time grayscale images were obtained over the left lower extremity in various projections. Additional duplex Doppler and color Doppler images were also obtained. HISTORY: Cellulitis. COMPARISON: None available. FINDINGS: Left lower extremity: There is monophasic waveform seen within the dorsalis pedis artery. Otherwise, triphasic or biphasic waveforms are seen within the left lower extremity arteries. No abrupt decrease in velocity is seen. Minimal plaque is present. IMPRESSION: 1. Monophasic waveform within the left dorsalis pedis artery without abrupt decrease in velocity seen. No other hemodynamically significant stenosis of the left lower extremity arteries. Dictated by: Dictated on workstation # [id number]
[2022-04-01] MEDS ORDERED: FUROSEMIDE 40 MG (LASIX) TAB PO SCH ×2 (17:00→21:00)
[2022-04-01] MEDS ORDERED: amLODIPine 5 MG (NORVASC) TAB ONE (20:12)
[2022-04-01] MEDS ORDERED: lisINopril 20 MG (PRINIVIL) TABLET ONE (20:12)
[2022-04-01] MEDS ORDERED: lisINopril 20 MG (PRINIVIL) TABLET PO ONE (20:15)
[2022-04-01] MEDS ORDERED: amLODIPine 5 MG (NORVASC) TAB PO ONE (20:15)
[2022-04-01] MEDS ORDERED: cloNIDine 0.1 MG (CATAPRES) TAB PO PRN (20:15)
[2022-04-01] MEDS ORDERED: NON-FORMULARY MEDICATION 1 EA EA (Mirtazapine 15 MG) PO SCH (21:00)
[2022-04-01] MEDS ORDERED: GABAPENTIN 400 MG (NEURONTIN) CAP PO SCH (21:00)
[2022-04-01] MEDS ORDERED: NON-FORMULARY MEDICATION 1 EA EA (Gabapentin 800 MG) PO SCH (21:00)
[2022-04-02] MEDS: LINEZOLID 600MG/300ML IVPB (PRE-MIX) IV SCH (01:20)
[2022-04-02 04:00] VITALS: BP 162/89
[2022-04-02] MEDS: PIPERACILLIN SODIUM/TAZOBACTAM 4.5 GM in NS (IVPB) 100 ML IV SCH (04:44)
[2022-04-02] MEDS: inSUlin ASPART (NovoLOG) 1 UNIT/0.01 ML (CHARGE PER UNIT) SC SCH ×3 (05:37→10:52)
[2022-04-02] MEDS: NS IV 1000 ML 1,000 ML IV SCH (05:37)
[2022-04-02 05:54] LABS: HEMATOCRIT 31 % (40-54); HEMOGLOBIN 10.5 g/dL (13.3-17.7); MEAN CORPUSCULAR HEMOGLOBIN 28 pg (25-34); MEAN CORPUSCULAR HGB CONC 34 g/dL (32-36); MEAN CORPUSCULAR VOLUME 82 fL (80-99); PLATELET COUNT 313 10^3/uL (130-400); WHITE BLOOD COUNT 7.2 10^3/uL (4.3-11.0)
[2022-04-02 06:12] LABS: CALCIUM 8.9 MG/DL (8.5-10.1); CREATININE SERUM 2.29 MG/DL (0.60-1.30); POTASSIUM 4.4 MMOL/L (3.6-5.0)
[2022-04-02 08:00] VITALS: BP 174/98
[2022-04-02] MEDS: ASPIRIN E.C. 81 MG (ECOTRIN) TAB PO SCH (08:53)
[2022-04-02] MEDS ORDERED: CLOPIDOGREL 75 MG (PLAVIX) TABLET PO SCH (09:00)
[2022-04-02] MEDS ORDERED: lisINopril 40 MG (PRINIVIL) TABLET PO SCH (09:00)
[2022-04-02] MEDS ORDERED: PHARMACY TO DOSE SQ SCH (09:00)
[2022-04-02] MEDS ORDERED: amLODIPine 5 MG (NORVASC) TAB PO SCH (09:00)
[2022-04-02] MEDS ORDERED: ENOXAPARIN 40 MG/0.4 ML (LOVENOX) SYR SQ SCH (09:00)
[2022-04-02] MEDS ORDERED: LINE600T12 PO (11:19)
--- NOTE | 2022-04-02 11:19 | Discharge Summary ---
Discharge Summary Hospital Course Problems/Diagnosis: (1) Left leg cellulitis Status: Acute Assessment & Plan: Without sepsis. Recurrent over years, more frequent in last few months. CT this fall without abnormality. DVT US negative this admission. Had arterial US done 01/2020 in [place], do not find more recent vascular study, repeated arterial US which showed monophasic flow in dorsalis pedis but otherwise normal. MRI with no osteomyelitis. Discharged to complete course of linezolid. (2) IDDM (insulin dependent diabetes mellitus) Status: Chronic Assessment & Plan: Resume mealtime and long acting insulin, doses inpatient are slightly lower than home, will adjust as needed. Diabetic diet. (3) Diabetes mellitus with retinopathy Status: Chronic Assessment & Plan: Patient reports treatment had improved, but has loss of vision again after his stroke, will follow up with Optho. Qualifiers: Qualified Codes: E11.319 - Type 2 diabetes mellitus with unspecified diabetic retinopathy without macular edema; Z79.4 - skilled nursing (current) use of insulin (4) Chronic kidney disease Status: Chronic Qualifiers: Qualified Codes: N18.4 - Chronic kidney disease, stage 4 (severe) (5) History of stroke Status: Chronic Assessment & Plan: 03/09/22 MRI at outside hospital with small focus posterior left frontal lobe. Reports slight residual difficulty articulating and some leaking fluid when he drinks from the left side of his mouth. (6) Hypertension Status: Chronic Assessment & Plan: Resume home meds. (7) Hyperlipidemia Status: Chronic Assessment & Plan: Resume home statin Hospital Course Date of Admission: Mar 30, 2022 at 23:15 Admission Diagnosis : Family Physician/Provider: Yeimy Iqbal Aprn Date of Discharge: 04/02/22 Discharge Diagnosis: See problem list Hospital Course: See problem list. Patient discharged with home health services. Labs and Pending Lab Test: Laboratory Tests 04/01/22 11:31: Glucometer 130H 04/01/22 15:57: Glucometer 107 04/01/22 20:33: Glucometer 104 04/02/22 01:33: Glucometer 63L 04/02/22 02:45: Glucometer 91 04/02/22 05:20: Glucometer 98 04/02/22 05:28: White Blood Count 7.2, Red Blood Count 3.82L, Hemoglobin 10.5L, Hematocrit 31L, Mean Corpuscular Volume 82, Mean Corpuscular Hemoglobin 28, Mean Corpuscular Hemoglobin Concent 34, Red Cell Distribution Width 13.2, Platelet Count 313, Mean Platelet Volume 10.0, Sodium Level 139, Potassium Level 4.4, Chloride Level 108H, Carbon Dioxide Level 20L, Anion Gap 11, Blood Urea Nitrogen 17, Creatinine 2.29H, Estimat Glomerular Filtration Rate 32, BUN/Creatinine Ratio 7, Glucose Level 97, Calcium Level 8.9 04/02/22 10:47: Glucometer 110 Microbiology 03/31/22 Urine Culture - Final, Complete NO GROWTH 03/30/22 Blood Culture - Preliminary, Resulted No growth Home Meds Active Zyvox (Linezolid) 600 Mg Tablet 600 Mg PO BID 7 Days Reported Gvoke Hypopen 2-Pack (Glucagon) 1 Mg/0.2 Ml Auto.injct 1 Mg SQ PRN PRN Novolog Flexpen (Insulin Aspart) 100 Unit/Ml (3 Ml) Solution 20 Units SQ TIDWM Baqsimi (Glucagon) 3 Mg/Actuation [place] 3 Mg NA DAILY PRN Gabapentin 800 Mg Tablet 800 Mg PO HS Amlodipine Besylate 5 Mg Tablet 10 Mg PO DAILY TAKES 2 (5MG) TAB Lisinopril 40 Mg Tablet 40 Mg PO DAILY Basaglar Kwikpen U-100 (Insulin Glargine,Hum.rec.anlog) 100 Unit/Ml (3 Ml) Insuln.pen 34 Unit SQ BID Furosemide 40 Mg Tablet 40 Mg PO HS Vitamin D2 (Ergocalciferol (Vitamin D2)) 1,250 Mcg (19402 Unit) Capsule 1,250 Mcg PO FRIDAY ONCE WEEKLY Clopidogrel (Clopidogrel Bisulfate) 75 Mg Tablet 75 Mg PO DAILY Atorvastatin Calcium 40 Mg Tablet 40 Mg PO DAILY Mirtazapine 15 Mg Tablet 15 Mg PO HS Aspirin 81 Mg Tab.chew 81 Mg PO DAILY Docusate Sodium 100 Mg Capsule 100 Mg PO DAILY PRN Proair Hfa (Albuterol Sulfate) 1 Puff Puff 2 Puff IH Q4H 1 PUFF = 90 MCG Assessment/Pt DC Instructions Follow up with primary provider within a week of discharge. Discharge Diet: ADA Diet Activity as Tolerated: Yes Discharge Physical Examination Allergies: Coded Allergies: vancomycin (Verified Allergy, Unknown, 03/30/21) cocaine (Unverified Adverse Reaction, Unknown, 11/13/21) General Appearance: No Apparent Distress, WD/WN Respiratory: Lungs Clear Cardiovascular: Regular Rate, Rhythm, No Murmur Skin: Other (left leg with decreased edema and erythema, although faint erythema still present to above knee) Neurologic/Psychiatric: Alert, Normal Mood/Affect VADIM RAMOS MD Apr 02, 2022 11:19
[2022-04-02 11:40] VITALS: BP 174/98
--- NOTE | 2022-04-02 11:58 | D/C HH Face to Face Order ---
D/C Face to Face Orders Instructions for Patient Via [facility], Patient Instructions/FollowUp: Follow up with primary physician within a week of discharge. Physician to follow Patient: [facility] Discharge Diet for Home: ADA Diet Patient Data-Allergies,Ht & Wt Patient Allergies: Coded Allergies: vancomycin (Verified Allergy, Unknown, 03/30/21) cocaine (Unverified Adverse Reaction, Unknown, 11/13/21) Home Health Need/Face to Face Date of Face to Face: Apr 02, 2022 Clinical Findings: Pain with ambulation I have seen Pt [id number]: Yes Discharged To: Home Diagnosis/Conditions: Recurrent cellulitis Diabetes mellitus Patient is Homebound due to: Pain w/ambulation Homebound Status Due to the above stated illness, injury or surgical procedure (medical condition or diagnosis) and associated clinical findings, the patient is homebound because of his/her inability to leave home except with aid of a supportive device and/or person AND leaving the home requires a considerable and taxing effort or is medically contraindicated. Pt req the following assistanc: Aid of another person Home Health Nursing Orders Home Health Services Order: Nursing Services, Physical Therapy-Evaluate & Treat, Wound Care-Eval/Treat Certify Stmt I certify that this patient is under my care and that I, a nurse practitioner or a physician; a career services assistant working with me, had a face to face encounter that - meets the physician face to face encounter requirements with this patient as dated. VADIM RAMOS MD Apr 02, 2022 11:58
== END 2022-04-02 11:40 | disposition home health service (06) | DRG 603 ==
LOC: EDUNIT# 21:25 → ER 21:28 → 4TH 23:15
PROVIDERS: ADMIT Internal Medicine; ATTEND Family Medicine
DX: L03.116 Cellulitis of left lower limb (principal); L97.229 Non-pressure chronic ulcer of left calf with unspecified severity; L97.219 Non-pressure chronic ulcer of right calf with unspecified severity; N18.4 Chronic kidney disease, stage 4 (severe); E46 Unspecified protein-calorie malnutrition; I12.9 Hypertensive chronic kidney disease with stage 1 through stage 4 chronic kidney disease, or unspecified chronic kidney disease; E11.22 Type 2 diabetes mellitus with diabetic chronic kidney disease; E11.319 Type 2 diabetes mellitus with unspecified diabetic retinopathy without macular edema; Z68.34 Body mass index [BMI] 34.0-34.9, adult; E66.9 Obesity, unspecified; K21.9 Gastro-esophageal reflux disease without esophagitis; E78.00 Pure hypercholesterolemia, unspecified; I69.392 Facial weakness following cerebral infarction; L30.9 Dermatitis, unspecified; R60.0 Localized edema; H54.7 Unspecified visual loss; Z79.4 Long term (current) use of insulin; Z28.310 Unvaccinated for COVID-19; Z28.9 Immunization not carried out for unspecified reason; Z28.39 Other underimmunization status; Z87.891 Personal history of nicotine dependence; Z88.1 Allergy status to other antibiotic agents; Z88.5 Allergy status to narcotic agent
CPT/HCPCS: 36415; 73562; 73590; 73630; 73721; 80048; 80053; 80306; 80320; 81000; 82010; 82947; 83036; 83605; 83735; 83874; 84145; 85025; 85027; 85379; 85610; 85652; 85730; 86141; 87040; 87088; 93041; 93926; 94760

== ENCOUNTER 2022-05-03 13:56 | Inpatient (IN) | payer MEDICARE, MEDICAID ==
[~2022-05-03] VITALS: Ht 172.7 cm; Wt 99.9 kg
[~2022-05-03 13:56] MED LIST changes: +ALBU8.5H6 IH; +AMLO-250 PO; +ASPI-999 PO; +ATOR40TA70 PO; +CLOP75TA28 PO; +ERGO1250 PO; +FURO40TA4 PO; +GLUC3SPR; +INSU100I14 SQ; +LINE600T12 PO; +MIRT-68 PO; -RT-ALBUINH IH
--- NOTE | 2022-05-03 14:28 | ED General ---
General Chief Complaint: General Problems/Pain Stated Complaint: WEAKNESS IN ARMS AND LEGS | NAUSEA Nursing Triage Note: PT TO TRIAGE VIA WC ALONGSIDE WHO REPORTS PT HAS BEEN UNABLE TO WALK OR USE ARMS SX THIS AM. ALSO REPORTS PT HAS A SIGNIFICANT WOUND TO LEFT FOOT D/T T2DM. PT C/O BILAT LEG PAIN, N/V, AND COUGH. PT A&OX3. Source of Information: Patient Exam Limitations: No Limitations History of Present Illness Date Seen by Provider: May 03, 2022 Time Seen by Provider: 14:26 Initial Comments To ER by private vehicle with reports of weakness of both upper extremities onset this morning. He has nausea general malaise pain swelling and infection in the left foot. Has been on cephalexin for the past week. He has dry edematous skin to the feet bilaterally left greater than right and states that he has a cut on the bottom of his left foot that gets infected. He was admitted for the same in March. Timing/Duration: 1-2 Days Severity: Moderate Associated Systoms: Nausea/Vomiting, Weakness Allergies and Home Medications Allergies Coded Allergies: vancomycin (Verified Allergy, Unknown, 03/30/21) cocaine (Unverified Adverse Reaction, Unknown, 11/13/21) Patient Home Medication List Home Medication List Reviewed: Yes Albuterol Sulfate (Ventolin Hfa) 1 Puff Puff, 2 PUFF IH Q4H, (Reported) Entered as Reported by: DASH VASQUEZ on 01/13/22 0310 Amlodipine Besylate (Amlodipine Besylate) 5 Mg Tablet, 10 MG PO DAILY, (Reported) Entered as Reported by: KLAUS MCKEON on 04/01/22 110 Aspirin (Aspirin) 81 Mg Tab.chew, 81 MG PO DAILY, (Reported) Entered as Reported by: KLAUS MCKEON on 04/01/22 110 Atorvastatin Calcium (Atorvastatin Calcium) 40 Mg Tablet, 40 MG PO DAILY, (Reported) Entered as Reported by: KLAUS MCKEON on 04/01/22 110 Clopidogrel Bisulfate (Clopidogrel) 75 Mg Tablet, 75 MG PO DAILY, (Reported) Entered as Reported by: KLAUS MCKEON on 04/01/22 1103 Docusate Sodium (Docusate Sodium) 100 Mg Capsule, 100 MG PO DAILY PRN for CONSTIPATION-1ST LINE, (Reported) Entered as Reported by: KLAUS MCKEON on 01/14/22 1209 Ergocalciferol (Vitamin D2) (Vitamin D2) 1,250 Mcg (81399 Unit) Capsule, 1,250 MCG PO FRIDAY, (Reported) Entered as Reported by: KLUAS MCKEON on 04/01/22 1103 Furosemide (Furosemide) 40 Mg Tablet, 40 MG PO HS, (Reported) Entered as Reported by: KLAUS MCKEON on 04/01/22 110 Gabapentin (Gabapentin) 800 Mg Tablet, 800 MG PO HS, (Reported) Entered as Reported by: KLAUS MCKEON on 04/01/22 110 Glucagon (Baqsimi) 3 Mg/Actuation [place], 3 MG NA DAILY PRN for HYPOGLYCEMIA, (Reported) Entered as Reported by: KLAUS MCKEON on 04/01/22 110 Glucagon (Gvoke Hypopen 2-Pack) 1 Mg/0.2 Ml Auto.injct, 1 MG SQ PRN PRN for HYPOGLYCEMIA, (Reported) Entered as Reported by: KLAUS MCKEON on 04/01/22 111 Insulin Aspart (Novolog Flexpen) 100 Unit/Ml (3 Ml) Solution, 20 UNITS SQ TIDWM, (Reported) Entered as Reported by: KLAUS MCKEON on 04/01/22 111 Last Action: Converted Insulin Glargine,Hum.rec.anlog (Basaglar Kwikpen U-100) 100 Unit/Ml (3 Ml) Insuln.pen, 34 UNIT SQ BID, (Reported) Entered as Reported by: KLAUS MCKEON on 04/01/221104 Last Action: Converted Linezolid (Zyvox) 600 Mg Tablet, 600 MG PO BID Prescribed by: VADIM RAMOS on 04/02/22 111 Lisinopril (Lisinopril) 40 Mg Tablet, 40 MG PO DAILY, (Reported) Entered as Reported by: KLAUS MCKEON on 04/01/221104 Review of Systems Review of Systems Constitutional: see HPI, fever, malaise, weakness EENTM: see HPI Respiratory: no symptoms reported Cardiovascular: no symptoms reported Genitourinary: no symptoms reported Musculoskeletal: no symptoms reported Skin: no symptoms reported Psychiatric/Neurological: No Symptoms Reported Hematologic/Lymphatic: No Symptoms Reported Immunological/Allergic: no symptoms reported Past Cnhfflv-Aelhsv-Crqkxr Hx Patient Social History Tobacco Use?: No Use of E-Cig and/or Vaping dev: No Substance use?: No Alcohol Use?: No Immunizations Up To Date First/Initial COVID19 Vaccinat: unvaccinated Second COVID19 Vaccination Mika: unvaccinated Third COVID19 Vaccination Date: unvaccinated Past Medical History Surgery/Hospitalization HX: htn, cellulitis, gerd, dm, high cholesterol, tia Surgeries: Yes (Skin graft on RLE) Respiratory: No Cardiac: Yes High Cholesterol, Hypertension Neurological: No Genitourinary: Yes (STAGE 4 RENAL FAILURE-NO DIALYSIS) Renal Failure Gastrointestinal: No Musculoskeletal: No Endocrine: Yes Diabetes, Insulin dep HEENT: No Cancer: No Psychosocial: No Integumentary: Yes (CHRONIC CELLULITIS OF LEG) Family Medical History Diabetes, Other Conditions/Hx SOCIAL HISTORY: -SMOKED A TEEN, STATES HE QUIT AT AGE 13 -ETOH--USED TO DRINK MODERATELY, NONE FOR A YEAR--PER PT ON 03/30/22 -DRUGS--DENIES USE Physical Exam Vital Signs Vital Signs - First Documented 05/03/22 14:15 Temp 39.7 Pulse 117 Resp 22 B/P (MAP) 139/92 (108) Pulse Ox 95 O2 Delivery Room Air Capillary Refill : Less Than 3 Seconds Height, Weight, BMI Height: '" Weight: lbs. oz. kg; 33.00 BMI Method: General Appearance: No Apparent Distress, WD/WN, Other (Chronically ill. Alert and oriented) Eyes: Bilateral Eye Normal Inspection, Bilateral Eye PERRL, Bilateral Eye EOMI HEENT: PERRL/EOMI, TMs Normal Neck: Full Range of Motion, Normal Inspection Respiratory: No Accessory Muscle Use, No Respiratory Distress Cardiovascular: Regular Rate, Rhythm, Normal Peripheral Pulses Gastrointestinal: Normal Bowel Sounds, Non Tender, Soft Extremity: Normal Capillary Refill, Normal Inspection, Other (3+ edema left foot 2+ edema right foot. Plantar surface of each foot has fissured skin with exudate from one of the fissures. Dorsal left foot is erythematous.) Neurologic/Psychiatric: Alert, Oriented x3 Skin: Normal Color, Warm/Dry Focused Exam Lactate Level 05/03/22 14:50: Lactic Acid Level 2.14*H Lactic Acid Level Laboratory Tests Test 05/03/22 14:50 Lactic Acid Level 2.14 MMOL/L (0.50-2.00) *H Progress/Results/Core Measures Suspected Sepsis SIRS Temperature: Pulse: 117 Respiratory Rate: 22 Laboratory Tests 05/03/22 14:50: White Blood Count 11.7H Blood Pressure 139 /92 Mean: 108 05/03/22 14:50: Lactic Acid Level 2.14*H Laboratory Tests 05/03/22 14:50: Creatinine 3.07H, INR Comment 1.1, Platelet Count 208, Total Bilirubin 0.7 Results/Orders Lab Results Laboratory Tests Test 05/03/22 14:28 05/03/22 14:50 05/03/22 15:03 05/03/22 16:08 Range/Units C-Reactive Protein High Sensitivity 8.93 H 0.00-0.50 MG/DL White Blood Count 11.7 H 4.3-11.0 10^3/uL Red Blood Count 4.56 4.30-5.52 10^6/uL Hemoglobin 12.7 L 13.3-17.7 g/dL Hematocrit 38 L 40-54 % Mean Corpuscular Volume 83 80-99 fL Mean Corpuscular Hemoglobin 28 25-34 pg Mean Corpuscular Hemoglobin Concent 34 32-36 g/dL Red Cell Distribution Width 14.9 H 10.0-14.5 % Platelet Count 208 130-400 10^3/uL Mean Platelet Volume 9.7 9.0-12.2 fL Immature Granulocyte % (Auto) 1 % Neutrophils (%) (Auto) 90 H 42-75 % Lymphocytes (%) (Auto) 6 L 12-44 % Monocytes (%) (Auto) 3 0-12 % Eosinophils (%) (Auto) 0 0-10 % Basophils (%) (Auto) 0 0-10 % Neutrophils # (Auto) 10.5 H 1.8-7.8 10^3/uL Lymphocytes # (Auto) 0.7 L 1.0-4.0 10^3/uL Monocytes # (Auto) 0.3 0.0-1.0 10^3/uL Eosinophils # (Auto) 0.0 0.0-0.3 10^3/uL Basophils # (Auto) 0.1 0.0-0.1 10^3/uL Immature Granulocyte # (Auto) 0.1 0.0-0.1 10^3/uL Neutrophils % (Manual) 77 % Lymphocytes % (Manual) 9 % Monocytes % (Manual) 2 % Eosinophils % (Manual) 0 % Basophils % (Manual) 0 % Band Neutrophils 12 % Blood Morphology Comment NORMAL Prothrombin Time 14.5 12.2-14.7 SEC INR Comment 1.1 0.8-1.4 Activated Partial Thromboplast Time 28 24-35 SEC Sodium Level 137 135-145 MMOL/L Potassium Level 4.6 3.6-5.0 MMOL/L Chloride Level 105 98-107 MMOL/L Carbon Dioxide Level 22 21-32 MMOL/L Anion Gap 10 5-14 MMOL/L Blood Urea Nitrogen 27 H 7-18 MG/DL Creatinine 3.07 H 0.60-1.30 MG/DL Estimat Glomerular Filtration Rate 23 BUN/Creatinine Ratio 9 Glucose Level 170 H 70-105 MG/DL Lactic Acid Level 2.14 *H 0.50-2.00 MMOL/L Calcium Level 9.4 8.5-10.1 MG/DL Corrected Calcium 9.3 8.5-10.1 MG/DL Total Bilirubin 0.7 0.1-1.0 MG/DL Aspartate Amino Transf (AST/SGOT) 18 5-34 U/L Alanine Aminotransferase (ALT/SGPT) 31 0-55 U/L Alkaline Phosphatase 59 40-136 U/L B-Type Natriuretic Peptide 129.4 H <100.0 PG/ML Total Protein 8.3 H 6.4-8.2 GM/DL Albumin 4.1 3.2-4.5 GM/DL Procalcitonin 2.54 H <0.10 NG/ML Influenza Type A (RT-PCR) Not Detected Not Detecte Influenza Type B (RT-PCR) Not Detected Not Detecte SARS-CoV-2 RNA (RT-PCR) Not Detected Not Detecte Erythrocyte Sedimentation Rate 58 H 0-30 MM/HR My Orders Orders - LEXX BEST APRN Cbc With Automated Diff (05/03/22 14:29) Comprehensive Metabolic Panel (05/03/22 14:29) Blood Culture (05/03/22 14:29) Sputum Culture (05/03/22 14:29) Urinalysis (05/03/22 14:29) Urine Culture (05/03/22 14:29) Protime With Inr (05/03/22 14:29) Partial Thromboplastin Time (05/03/22 14:29) Chest 1 View, Ap/Pa Only (05/03/22 14:29) Ed Iv/Invasive Line Start (05/03/22 14:29) Ed Iv/Invasive Line Start (05/03/22 14:29) Vital Signs Adult Sepsis Patie Q15M (05/03/22 14:29) O2 (05/03/22 14:29) Remove Rings In Anticipation O (05/03/22 14:29) Lactic Acid Analyzer (05/03/22 14:29) Bnp Calin (05/03/22 14:29) Ibuprofen Tablet (Motrin Tablet) (05/03/22 14:30) Manual Differential (05/03/22 14:50) Covid 19 Inhouse Test (05/03/22 15:02) Influenza A And B By Pcr (05/03/22 15:02) Procalcitonin (Pct) (05/03/22 15:02) Drug Screen Stat (Urine) (05/03/22 15:02) Lactated Ringers (Lr 1000 Ml Iv Solution (05/03/22 15:15) Hs C Reactive Protein (05/03/22 15:52) Erythrocyte Sedimentation Rate (05/03/22 15:52) Acetaminophen Tablet (Tylenol Tablet) (05/03/22 16:15) Foot, Left, 3 Views (05/03/22 16:13) Wound Culture (05/03/22 16:15) Piperacillin Sodium/Tazobactam (Zosyn Vi (05/03/22 16:45) Ed Admission (Communication) (05/03/22 16:45) Medications Given in ED Current Medications Medications Dose Ordered Sig/Marilin Route Start Time Stop Time Status Last Admin Dose Admin Acetaminophen 1,000 mg ONCE ONCE PO 05/03/22 16:15 05/03/22 16:16 DC 05/03/22 16:40 1,000 MG Ibuprofen 800 mg ONCE ONCE PO 05/03/22 14:30 05/03/22 14:31 DC 05/03/22 14:57 800 MG Piperacillin Sod/ Tazobactam Sod 4.5 gm/Sodium Chloride 100 ml @ 200 mls/hr ONCE ONCE IV 05/03/22 16:45 05/03/22 17:14 DC 05/03/22 16:58 200 MLS/HR Vital Signs/I&O 05/03/22 14:15 Temp 39.7 Pulse 117 Resp 22 B/P (MAP) 139/92 (108) Pulse Ox 95 O2 Delivery Room Air Capillary Refill : Less Than 3 Seconds Blood Pressure Mean: 108 Departure Communication (Admissions) NAME: DARIO JEFFERSON [facility] REC#: [id number] PT STATUS: REG ER : 1965 PHYSICIAN: LEXX BEST APRN ADMIT DATE: 05/03/22/ER Signed Date of Exam:05/03/22 CHEST 1 VIEW, AP/PA ONLY EXAMINATION: Chest, one view. HISTORY: Fever. COMPARISON: 02/17/2022. FINDINGS: The lungs are clear without edema or pneumonia. No pleural effusion or pneumothorax. Heart size is normal. IMPRESSION: 1. Clear lungs. Dictated by: Dictated on workstation # [id number] Dict: 05/03/22 1548 Trans: 05/03/22 1551 [id number] Interpreted by: HAYDEN BARILLAS MD Electronically signed by: HAYDEN BARILLAS MD 05/03/22 1551 NAME: DARIO JEFFERSON [facility] REC#: [id number] PT STATUS: REG ER : 1965 PHYSICIAN: LEXX BEST APRN ADMIT DATE: 05/03/22/ER Draft Date of Exam:05/03/22 CHEST 1 VIEW, AP/PA ONLY EXAMINATION: Chest, one view. HISTORY: Fever. COMPARISON: 02/17/2022. FINDINGS: The lungs are clear without edema or pneumonia. No pleural effusion or pneumothorax. Heart size is normal. IMPRESSION: 1. Clear lungs. Dictated on workstation # [id number] Dict: 05/03/22 1548 Trans: 05/03/22 1549 [id number] Interpreted by: HAYDEN BARILLAS MD Electronically signed by: Impression Primary Impression: Chronic kidney disease Additional Impressions: IDDM (insulin dependent diabetes mellitus) Left leg cellulitis Disposition: ADMITTED INPATIENT Condition: Stable Departure-Patient Inst. Referrals: CARRIE ALONSO APRN (PCP/Family) Primary Care Physician LEXX BEST APRN May 03, 2022 14:28
[2022-05-03] MEDS ORDERED: IBUPROFEN 800 MG (MOTRIN) TAB PO ONE (14:30)
[2022-05-03 15:00] LABS: BASOPHILS # (AUTO) 0.1 10^3/uL (0.0-0.1); BASOPHILS % (AUTO) 0 % (0-10); EOSINOPHILS % (AUTO) 0 % (0-10); HEMATOCRIT 38 % (40-54); HEMOGLOBIN 12.7 g/dL (13.3-17.7); LYMPHOCYTES # (AUTO) 0.7 10^3/uL (1.0-4.0); LYMPHOCYTES % (AUTO) 6 % (12-44); MEAN CORPUSCULAR HEMOGLOBIN 28 pg (25-34); MEAN CORPUSCULAR HGB CONC 34 g/dL (32-36); MEAN CORPUSCULAR VOLUME 83 fL (80-99); MEAN PLATELET VOLUME 9.7 fL (9.0-12.2); MONOCYTES # (AUTO) 0.3 10^3/uL (0.0-1.0); MONOCYTES % (AUTO) 3 % (0-12); NEUTROPHILS # (AUTO) 10.5 10^3/uL (1.8-7.8); NEUTROPHILS % (AUTO) 90 % (42-75); PLATELET COUNT 208 10^3/uL (130-400); WHITE BLOOD COUNT 11.7 10^3/uL (4.3-11.0)
[2022-05-03 15:12] LABS: BAND NEUTROPHILS 12 %; BASOPHILS % (MANUAL) 0 %; EOSINOPHILS % (MANUAL) 0 %; LYMPHOCYTES % (MANUAL) 9 %; MONOCYTES % (MANUAL) 2 %; NEUTROPHILS % (MANUAL) 77 %; RBC MORPH NORMAL
[2022-05-03] MEDS ORDERED: LACTATED RINGERS 1,000 ML IV SCH (15:15)
[2022-05-03 15:16] LABS: INR 1.1 (0.8-1.4); PROTHROMBIN TIME PATIENT 14.5 SEC (12.2-14.7)
[2022-05-03 15:18] LABS: ALBUMIN 4.1 GM/DL (3.2-4.5); POTASSIUM 4.6 MMOL/L (3.6-5.0)
[2022-05-03 15:19] LABS: CALCIUM 9.4 MG/DL (8.5-10.1)
[2022-05-03 15:21] LABS: TOTAL PROTEIN 8.3 GM/DL (6.4-8.2)
[2022-05-03 15:22] LABS: BILIRUBIN,TOTAL 0.7 MG/DL (0.1-1.0)
[2022-05-03 15:24] LABS: CREATININE SERUM 3.07 MG/DL (0.60-1.30)
--- NOTE | 2022-05-03 15:49 | Diagnostic Imaging Report ---
EXAMINATION: Chest, one view. HISTORY: Fever. COMPARISON: 02/17/2022. FINDINGS: The lungs are clear without edema or pneumonia. No pleural effusion or pneumothorax. Heart size is normal. IMPRESSION: 1. Clear lungs. Dictated by: Dictated on workstation # [id number]
[2022-05-03] MEDS ORDERED: ACETAMINOPHEN 500 MG TAB (TYLENOL) PO ONE (16:15)
--- NOTE | 2022-05-03 16:34 | Diagnostic Imaging Report ---
EXAMINATION: Left foot radiographs, 3 views. COMPARISON: Foot radiograph March 30, 2022. HISTORY: 56-year-old male, left foot wound and pain. FINDINGS: There is a bipartite medial sesamoid. 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 There is no cortical or aggressive bone destruction. There is no periosteal reaction. There is no identified acute fracture. There is prominent dorsal soft tissue swelling. There is a normal variant os trigonum. There are vascular calcifications. There is a calcaneal heel spur. There is no identified radiopaque foreign body. IMPRESSION: Prominent dorsal soft tissue swelling without radiographic evidence of osteomyelitis or other acute osseous abnormality. Dictated by: Dictated on workstation # [id number]
[2022-05-03] MEDS ORDERED: PIPERACILLIN SODIUM/TAZOBACTAM 4.5 GM in NS (IVPB) 100 ML IV ONE (16:45)
[2022-05-03] MEDS ORDERED: CALCIUM CARBONATE 500 MG (TUMS) TAB.CHEW PO PRN (18:00)
[2022-05-03] MEDS ORDERED: MILK OF MAGNESIA 400 MG/5 ML 30 ML UDC PO PRN (18:00)
[2022-05-03] MEDS ORDERED: BISACODYL 10 MG SUPP (DULCOLAX) PR PRN (18:00)
[2022-05-03] MEDS ORDERED: LACTULOSE SYRUP 10GM/15ML (ENULOSE) 30ML UDC PO PRN (18:00)
[2022-05-03] MEDS ORDERED: HYDROmorphone 2 MG/ML VIAL (DILAUDID) IV PRN (18:00)
[2022-05-03] MEDS ORDERED: diphenhydrAMINE 50 MG/ML INJ (BENADRYL) IVP PRN (18:00)
[2022-05-03] MEDS ORDERED: polyethylene glycoL POWDER 17 GM (MIRALAX) PACK PO PRN (18:00)
[2022-05-03] MEDS ORDERED: diphenhydrAMINE 25 MG TAB (BENADRYL) PO PRN (18:00)
[2022-05-03] MEDS ORDERED: ANTACID SUSP 30 ML UDC (MYLANTA) PO PRN (18:00)
[2022-05-03] MEDS ORDERED: cloNIDine 0.1 MG (CATAPRES) TAB PO PRN (18:00)
[2022-05-03] MEDS ORDERED: ONDANSETRON 4 MG (ZOFRAN) ORAL DISSOLVE TAB PO PRN (18:00)
[2022-05-03] MEDS ORDERED: MELATONIN 3 MG TABLET PO PRN (18:00)
[2022-05-03] MEDS: NS IV 1000 ML 1,000 ML IV SCH (18:17)
[2022-05-03 18:19] VITALS: BP 139/92
[2022-05-03] MEDS ORDERED: RT-ALBUTEROL SULF 2.5 MG/3 ML PRE-MIX VIAL INH PRN (18:30)
[2022-05-03 18:35] VITALS: BP 113/63
[2022-05-03 20:08] VITALS: BP 110/59
[2022-05-03] MEDS: SENNOSIDES 8.6 MG (SENOKOT) TAB PO SCH (21:00)
[2022-05-03] MEDS: DOCUSATE SODIUM 100 MG (COLACE) CAP PO SCH (21:00)
[2022-05-03] MEDS: inSUlin ASPART (NovoLOG) 1 UNIT/0.01 ML (CHARGE PER UNIT) SC SCH (21:00)
[2022-05-03] MEDS: LINEZOLID IVPB 300 ML IV SCH (21:04)
[2022-05-03] MEDS: PIPERACILLIN SODIUM/TAZOBACTAM 4.5 GM in NS (IVPB) 100 ML IV SCH (23:06)
[2022-05-03 23:08] VITALS: BP 122/59
[2022-05-04] MEDS: NS IV 1000 ML 1,000 ML IV SCH ×4 (02:00→23:01)
[2022-05-04 03:54] VITALS: BP 127/61
[2022-05-04] MEDS: inSUlin ASPART (NovoLOG) 1 UNIT/0.01 ML (CHARGE PER UNIT) SC SCH ×7 (05:09→21:00)
[2022-05-04] MEDS: PIPERACILLIN SODIUM/TAZOBACTAM 4.5 GM in NS (IVPB) 100 ML IV SCH ×3 (05:38→23:01)
[2022-05-04 06:12] LABS: BASOPHILS # (AUTO) 0.1 10^3/uL (0.0-0.1); BASOPHILS % (AUTO) 1 % (0-10); EOSINOPHILS % (AUTO) 0 % (0-10); HEMATOCRIT 33 % (40-54); HEMOGLOBIN 10.7 g/dL (13.3-17.7); LYMPHOCYTES # (AUTO) 0.9 10^3/uL (1.0-4.0); LYMPHOCYTES % (AUTO) 8 % (12-44); MEAN CORPUSCULAR HEMOGLOBIN 28 pg (25-34); MEAN CORPUSCULAR HGB CONC 33 g/dL (32-36); MEAN CORPUSCULAR VOLUME 85 fL (80-99); MEAN PLATELET VOLUME 10.4 fL (9.0-12.2); MONOCYTES # (AUTO) 0.3 10^3/uL (0.0-1.0); MONOCYTES % (AUTO) 3 % (0-12); NEUTROPHILS # (AUTO) 9.5 10^3/uL (1.8-7.8); NEUTROPHILS % (AUTO) 87 % (42-75); PLATELET COUNT 161 10^3/uL (130-400); WHITE BLOOD COUNT 10.9 10^3/uL (4.3-11.0)
--- NOTE | 2022-05-04 06:12 | History & Physical-Hospitalist ---
History of Present Illness HPI/Chief Complaint Chief complaint: Left foot cellulitis with sepsis HPI: This is a 56-year-old male clinic patient of [facility] who has a past medical history of insulin-dependent diabetes and noncompliance who presents to the ER with left foot pain and increased edema. He was found to have significant sepsis so he was given IV fluids and empiric antibiotics and general surgery consultation. Today he is having rigors and blood cultures are positive for bacteria. He was placed on broad-spectrum antibiotics of Zyvox and Zosyn. We will monitor his kidney function closely. Source: patient, family Exam Limitations: clinical condition Date Seen 05/04/22 Time Seen by a Provider: 11:00 Attending Physician Yeimy Iqbal Aprn PCP Admitting Physician: Taryn Israel DO Attending Physician: Taryn Israel DO Referring Physician Date of Admission May 03, 2022 at 16:46 Home Medications & Allergies Home Medications Reviewed patient Home Medication Reconciliation performed by pharmacy medication reconciliations machine maintenance technician and/or nursing. Patients Allergies have been reviewed. Allergies Allergies Coded Allergies vancomycin (Verified Allergy, Unknown, 03/30/21) cocaine (Unverified Adverse Reaction, Unknown, 11/13/21) Past Ypgtgyu-Hztrkh-Lagsdz Hx Patient Social History Marrital Status: cohabiting Employed/Student: unemployed Tobacco Use?: Yes Smoking Status: Former Smoker Smokeless Tobacco Frequency: Former User Use of E-Cig and/or Vaping dev: No Substance use?: No Alcohol Use?: Yes Alcohol Frequency: Rarely Pt feels they are or have been: No Immunizations Up To Date First/Initial COVID19 Vaccinat: unvaccinated Second COVID19 Vaccination Mika: unvaccinated Tetanus Booster (TDap): Unknown Current Status Advance Directives: No Communicates: Verbally Primary Language: [place] Citizen Preferred Spoken Language: [place] Citizen Is interpretation needed?: No Past Medical History High Cholesterol, Hypertension Renal Failure Diabetes, Insulin dep Family Medical History Diabetes, Other Conditions/Hx SOCIAL HISTORY: -SMOKED A TEEN, STATES HE QUIT AT AGE 13 -ETOH--USED TO DRINK MODERATELY, NONE FOR A YEAR--PER PT ON 03/30/22 -DRUGS--DENIES USE Review of Systems Constitutional: see HPI, malaise, weakness EENTM: no symptoms reported Respiratory: no symptoms reported Cardiovascular: no symptoms reported Gastrointestinal: no symptoms reported Genitourinary: no symptoms reported Musculoskeletal: joint pain, muscle pain, muscle stiffness, muscle cramps Skin: no symptoms reported Psychiatric/Neurological: Anxiety Physical Exam Physical Exam Vital Signs Vital Signs - First Documented 05/03/22 05/03/22 14:15 18:19 Temp 39.7 Pulse 117 Resp 22 B/P (MAP) 139/92 (108) Pulse Ox 95 O2 Delivery Room Air FiO2 21 Capillary Refill : Less Than 3 Seconds Height, Weight, BMI Height: '" Weight: lbs. oz. kg; 33.49 BMI Method: General Appearance: Anxious, Chronically ill, Mild Distress Neck: Full Range of Motion, Normal Inspection, Non Tender Respiratory: Chest Non Tender, Lungs Clear, Normal Breath Sounds, No Accessory Muscle Use, No Respiratory Distress Cardiovascular: Regular Rate, Rhythm, No Edema, No Gallop, No JVD, No Murmur, Normal Peripheral Pulses, Tachycardia Extremity: Normal Capillary Refill, Normal Inspection, Normal Range of Motion (Except left leg), Non Tender (Except left leg), No Calf Tenderness (Except left leg), No Pedal Edema, Inflammation (Left leg), Swelling (Left leg) Neurologic/Psychiatric: Alert, Oriented x3, No Motor/Sensory Deficits, Normal Mood/Affect Skin: Other (Increased redness left leg) Results Results/Procedures Labs Laboratory Tests 05/03/22 14:50 05/04/22 05:31 Patient resulted labs reviewed. Assessment/Plan Admission Diagnosis Assessment: Sepsis Left foot cellulitis Bacteremia Peripheral vascular disease Diabetes Hypertension Chronic kidney disease stage IV Plan: Broad-spectrum antibiotics IV fluid General surgery consultation DVT prophylaxis Admission Status: Inpatient Order (span 2 midnights) Reason for Inpatient Admission: Sepsis Diagnosis/Problems Diagnosis/Problems (1) Sepsis (2) Bacteremia (3) CKD (chronic kidney disease) stage 4, GFR 15-29 ml/min (4) DVT prophylaxis Status: Acute (5) Hyperlipidemia Status: Chronic (6) Hypertension Status: Chronic (7) Cellulitis of left foot (8) Uncontrolled diabetes mellitus Status: Acute (9) Left leg cellulitis Status: Acute Clinical Quality Measures DVT/VTE Risk/Contraindication: Contraindications-Mechi: Other *list below* Other: leg cellulitis TARYN ISRAEL DO May 04, 2022 06:12
[2022-05-04 06:41] LABS: ALBUMIN 3.2 GM/DL (3.2-4.5); BILIRUBIN,TOTAL 0.9 MG/DL (0.1-1.0); CALCIUM 8.6 MG/DL (8.5-10.1); CREATININE SERUM 3.53 MG/DL (0.60-1.30); POTASSIUM 5.1 MMOL/L (3.6-5.0); TOTAL PROTEIN 7.1 GM/DL (6.4-8.2)
[2022-05-04 07:25] VITALS: BP 140/74
[2022-05-04] MEDS ORDERED: inSUlin ASPART (NovoLOG) 1 UNIT/0.01 ML (CHARGE PER UNIT) SC SCH (08:00)
[2022-05-04] MEDS ORDERED: NON-FORMULARY MEDICATION 1 EA EA (Insulin Aspart (Novolog Flexpen) 20 UNITS) SQ SCH (08:00)
[2022-05-04] MEDS: LINEZOLID IVPB 300 ML IV SCH ×2 (08:53→21:08)
[2022-05-04] MEDS: DOCUSATE SODIUM 100 MG (COLACE) CAP PO SCH ×2 (08:56→21:00)
[2022-05-04] MEDS: SENNOSIDES 8.6 MG (SENOKOT) TAB PO SCH ×2 (08:56→21:00)
[2022-05-04] MEDS ORDERED: lisINopril 40 MG (PRINIVIL) TABLET PO SCH (09:00)
[2022-05-04] MEDS: CLOPIDOGREL 75 MG (PLAVIX) TABLET PO SCH (09:02)
[2022-05-04] MEDS: amLODIPine 10 MG (NORVASC) TAB PO SCH (09:02)
[2022-05-04] MEDS: GABAPENTIN 400 MG (NEURONTIN) CAP PO SCH (09:02)
[2022-05-04] MEDS: PANTOPRAZOLE 40 MG (PROTONIX) TAB PO SCH (09:02)
--- NOTE | 2022-05-04 10:25 | Consultation - Surgery ---
SHAQUILLE ELIAS 05/04/22 1025: History of Present Illness History of Present Illness Patient Consulted On(jose/time) 05/04/22 10:16 Date Seen by Provider: May 04, 2022 Time Seen by Provider: 07:50 History of Present Illness 56 year old male with a past medical history of CKD stage IV, T2DM Insulin Dependent, CAD, TIA, Stroke that presented to [facility] ER with a chief complaint of weakness and fatigue in his arms and legs. Patient states that this started yesterday morning. Patient felt weak all day and also had nausea and vomiting. This is what prompted him to come to the ER. Patient did state he skipped all of his ambulatory medications yesterday. Patient is also complaining of left foot pain. Stating he has left calf tenderness to palpation. Also endorses swelling and irritation. Patient has been on keflex for the past week for this issue. Patient has been hospitalized for these issues before in March. Patient states that on Friday he stepped on an animal vertebrae in his yard that caused a laceration on the bottom of his left foot. Patient does state that his last tetanus shot was earlier this year. In the ER patient underwent CXR and Foot XR. CXR was negative for acute processes. Left foot XR showed soft tissue swelling without evidence of osteomyelitis. Patient was started on Zosyn and Linezolid. Patient initial lactic acid was elevated at 2.14 repeat showed 1.44. Initial foot blood culture was positive for SA presumptive MRSA and strep B Group G. Blood cultures were positive for Strep B group G Allergies and Home Medications Allergies Coded Allergies: vancomycin (Verified Allergy, Unknown, 03/30/21) cocaine (Unverified Adverse Reaction, Unknown, 11/13/21) Patient Home Medication List Home Medication List Reviewed: Yes Albuterol Sulfate (Ventolin Hfa) 1 Puff Puff, 2 PUFF IH Q4H, (Reported) Entered as Reported by: DASH VASQUEZ on 01/13/22 0310 Amlodipine Besylate (Amlodipine Besylate) 5 Mg Tablet, 10 MG PO DAILY, (Reported) Entered as Reported by: KLAUS MCKEON on 04/01/22 1109 Aspirin (Aspirin) 81 Mg Tab.chew, 81 MG PO DAILY, (Reported) Entered as Reported by: KLAUS MCKEON on 04/01/22 1102 Atorvastatin Calcium (Atorvastatin Calcium) 40 Mg Tablet, 40 MG PO DAILY, ( Reported) Entered as Reported by: KLAUS MCKEON on 04/01/22 110 Clopidogrel Bisulfate (Clopidogrel) 75 Mg Tablet, 75 MG PO DAILY, (Reported) Entered as Reported by: KLAUS MCKEON on 04/01/22 110 Docusate Sodium (Docusate Sodium) 100 Mg Capsule, 100 MG PO DAILY PRN for CONSTIPATION-1ST LINE, (Reported) Entered as Reported by: KLAUS MCKEON on 01/14/22 120 Ergocalciferol (Vitamin D2) (Vitamin D2) 1,250 Mcg (92734 Unit) Capsule, 1,250 MCG PO FRIDAY, (Reported) Entered as Reported by: KLAUS MCKEON on 04/01/22 110 Furosemide (Furosemide) 40 Mg Tablet, 40 MG PO HS, (Reported) Entered as Reported by: KLAUS MCKEON on 04/01/221104 Gabapentin (Gabapentin) 800 Mg Tablet, 800 MG PO HS, (Reported) Entered as Reported by: KLAUS MCKEON on 04/01/22 110 Glucagon (Baqsimi) 3 Mg/Actuation [place], 3 MG NA DAILY PRN for HYPOGLYCEMIA, (Reported) Entered as Reported by: KLAUS MCKEON on 04/01/22 110 Glucagon (Gvoke Hypopen 2-Pack) 1 Mg/0.2 Ml Auto.injct, 1 MG SQ PRN PRN for HYPOGLYCEMIA, (Reported) Entered as Reported by: KLAUS MCKEON on 04/01/22 111 Insulin Aspart (Novolog Flexpen) 100 Unit/Ml (3 Ml) Solution, 20 UNITS SQ TIDWM, (Reported) Entered as Reported by: KLAUS MCKEON on 04/01/22 111 Last Action: Converted Insulin Glargine,Hum.rec.anlog (Basaglar Kwikpen U-100) 100 Unit/Ml (3 Ml) Insuln.pen, 34 UNIT SQ BID, (Reported) Entered as Reported by: KLAUS MCKEON on 04/01/22 110 Last Action: Converted Linezolid (Zyvox) 600 Mg Tablet, 600 MG PO BID Prescribed by: VADIM RAMOS on 04/02/22 111 Lisinopril (Lisinopril) 40 Mg Tablet, 40 MG PO DAILY, (Reported) Entered as Reported by: KLAUS MCKEON on 04/01/22 1105 Past Idnrlyq-Jabawl-Qlewkc Hx Patient Social History Smoking Status: Former Smoker Type Used: Smokeless Tobacco Alcohol Use?: Yes Have you traveled recently?: No Immunizations Up To Date Tetanus Booster (TDap): Less than 5yrs Surgeries History of Surgeries: Yes (Skin graft on RLE) Surgeries: Cardiac (Heart cath w/ stent placement per pt. Dr. Dugan) Respiratory History of Respiratory Disorde: No Cardiovascular History of Cardiac Disorders: Yes Cardiac Disorders: Coronary Artery Disease, High Cholesterol, Hypertension Neurological History of Neurological Disord: No Genitourinary History of Genitourinary Disor: Yes (STAGE 4 RENAL FAILURE-NO DIALYSIS) Genitourinary Disorders: Renal Failure Gastrointestinal History of Gastrointestinal Di: No Musculoskeletal History of Musculoskeletal Dis: No Endocrine History of Endocrine Disorders: Yes Endocrine Disorders: Diabetes, Insulin dep HEENT History of HEENT Disorders: No Cancer History of Cancer: No Psychosocial History of Psychiatric Problem: No Integumentary History of Skin or Integumenta: Yes (CHRONIC CELLULITIS OF LEG) Family Medical History Significant Family History: CAD Under 55 Years Old, Diabetes, Other Conditions/Hx Review of Systems-General Constitutional: No chills, No fever EENTM: No blurred vision, No double vision Respiratory: No cough, No dyspnea on exertion Cardiovascular: No chest pain, No palpitations Gastrointestinal: No abdominal pain, No constipation, No diarrhea; nausea; No vomiting Genitourinary: No decreased output (per pt baseline), No dysuria Musculoskeletal: joint pain (LLE), joint swelling (LLE; ankle), muscle pain (L calf tenderness) Skin: lesions (Non-healing lesions of both LE, patient states they have been there for years) Psychiatric/Neurological: Denies Anxiety, Denies Depressed Physical Exam-General Problems Physical Exam Vital Signs Vital Signs - First Documented 05/03/22 05/03/22 14:15 18:19 Temp 39.7 Pulse 117 Resp 22 B/P (MAP) 139/92 (108) Pulse Ox 95 O2 Delivery Room Air FiO2 21 Capillary Refill : Less Than 3 Seconds General Appearance: no apparent distress, obese HEENT: PERRL/EOMI Neck: supple, normal inspection Respiratory: chest non-tender, lungs clear, normal breath sounds, no respiratory distress, no accessory muscle use Cardiovascular: regular rate, rhythm, no murmur Gastrointestinal: non tender, soft Extremities: calf tenderness (Left), inflammation (LLE; extends to proximal 1/3 of tibia currently. ), pedal edema (LLE), other (non-healing wounds, bilateral LE) Skin: normal color, warm/dry Data Review Labs Laboratory Tests 05/03/22 14:28: C-Reactive Protein High Sensitivity 8.93H 05/03/22 14:50: White Blood Count 11.7H, Red Blood Count 4.56, Hemoglobin 12.7L, Hematocrit 38L, Mean Corpuscular Volume 83, Mean Corpuscular Hemoglobin 28, Mean Corpuscular Hemoglobin Concent 34, Red Cell Distribution Width 14.9H, Platelet Count 208, Mean Platelet Volume 9.7, Immature Granulocyte % (Auto) 1, Neutrophils (%) (Auto) 90H, Lymphocytes (%) (Auto) 6L, Monocytes (%) (Auto) 3, Eosinophils (%) (Auto) 0, Basophils (%) (Auto) 0, Neutrophils # (Auto) 10.5H, Lymphocytes # (Auto) 0.7L, Monocytes # (Auto) 0.3, Eosinophils # (Auto) 0.0, Basophils # (Auto) 0.1, Immature Granulocyte # (Auto) 0.1, Neutrophils % (Manual) 77, Lymphocytes % (Manual) 9, Monocytes % (Manual) 2, Eosinophils % (Manual) 0, Basophils % (Manual) 0, Band Neutrophils 12, Blood Morphology Comment NORMAL, Prothrombin Time 14.5, INR Comment 1.1, Activated Partial Thromboplast Time 28, Sodium Level 137, Potassium Level 4.6, Chloride Level 105, Carbon Dioxide Level 22, Anion Gap 10, Blood Urea Nitrogen 27H, Creatinine 3.07H, Estimat Glomerular Filtration Rate 23, BUN/Creatinine Ratio 9, Glucose Level 170H, Lactic Acid Level 2.14*H, Calcium Level 9.4, Corrected Calcium 9.3, Total Bilirubin 0.7, As partate Amino Transf (AST/SGOT) 18, Alanine Aminotransferase (ALT/SGPT) 31, Alkaline Phosphatase 59, B-Type Natriuretic Peptide 129.4H, Total Protein 8.3H, Albumin 4.1, Procalcitonin 2.54H 05/03/22 15:03: Influenza Type A (RT-PCR) Not Detected, Influenza Type B (RT-PCR) Not Detected, SARS-CoV-2 RNA (RT-PCR) Not Detected 05/03/22 16:08: Erythrocyte Sedimentation Rate 58H 05/03/22 17:45: Lactic Acid Level 1.44 05/03/22 20:54: Glucometer 142H 05/04/22 05:00: Glucometer 95 05/04/22 05:31: White Blood Count 10.9, Red Blood Count 3.87L, Hemoglobin 10.7L, Hematocrit 33L, Mean Corpuscular Volume 85, Mean Corpuscular Hemoglobin 28, Mean Corpuscular Hemoglobin Concent 33, Red Cell Distribution Width 15.2H, Platelet Count 161, Mean Platelet Volume 10.4, Immature Granulocyte % (Auto) 1, Neutrophils (%) (Auto) 87H, Lymphocytes (%) (Auto) 8L, Monocytes (%) (Auto) 3, Eosinophils (%) (Auto) 0, Basophils (%) (Auto) 1, Neutrophils # (Auto) 9.5H, Lymphocytes # (Auto) 0.9L, Monocytes # (Auto) 0.3, Eosinophils # (Auto) 0.0, Basophils # (Auto) 0.1, Immature Granulocyte # (Auto) 0.1, Sodium Level 136, Potassium Level 5.1H, Chloride Level 104, Carbon Dioxide Level 19L, Anion Gap 13, Blood Urea Nitrogen 37H, Creatinine 3.53#H, Estimat Glomerular Filtration Rate 19, BUN/Creatinine Ratio 10, Glucose Level 98, Calcium Level 8.6, Corrected Calcium 9.2, Total Bilirubin 0.9, Aspartate Amino Transf (AST/SGOT) 18, Alanine Aminotransferase (ALT/SGPT) 19, Alkaline Phosphatase 47, Total Protein 7.1, Albumin 3.2 Microbiology 05/03/22 Gram Stain, Resulted Pending 05/03/22 Wound Culture - Preliminary, Resulted Staphylococcus aureus Strep, Beta Hemolytic Group G 05/03/22 Blood Culture - Preliminary, Resulted Strep, Beta Hemolytic Group G Radiology [facility] [place], [place] NAME: DARIO JEFFERSON MED REC#: [id number] PT STATUS: REG ER : 1965 PHYSICIAN: LEXX BEST [employer] TE[employer] ADMIT DATE: 05/03/22/ER Signed Date of Exam:05/03/22 FOOT, LEFT, 3 VIEWS EXAMINATION: Left foot radiographs, 3 views. COMPARISON: Foot radiograph March 30, 2022. HISTORY: 56-year-old male, left foot wound and pain. FINDINGS: There is a bipartite medial sesamoid. 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 There is no cortical or aggressive bone destruction. There is no periosteal reaction. There is no identified acute fracture. There is prominent dorsal soft tissue swelling. There is a normal variant os trigonum. There are vascular calcifications. There is a calcaneal heel spur. There is no identified radiopaque foreign body. IMPRESSION: Prominent dorsal soft tissue swelling without radiographic evidence of osteomyelitis or other acute osseous abnormality. Dictated by: Dictated on workstation # [id number] Dict: 05/03/22 1630 Trans: 05/03/221707 [id number] Interpreted by: JONG MARIANO MD Electronically signed by: JONG MARIANO MD 05/03/221707 [facility] [place] [place], [place] NAME: LIDARIO Germain [facility] REC#: [id number] PT STATUS: REG ER : 1965 PHYSICIAN: LEXX BEST APRN ADMIT DATE: 05/03/22/ER Signed Date of Exam:05/03/22 CHEST 1 VIEW, AP/PA ONLY EXAMINATION: Chest, one view. HISTORY: Fever. COMPARISON: 02/17/2022. FINDINGS: The lungs are clear without edema or pneumonia. No pleural effusion or pneumothorax. Heart size is normal. IMPRESSION: 1. Clear lungs. Dictated by: Dictated on workstation # [id number] Dict: 05/03/22 1548 Trans: 05/03/22 1551 [id number] Interpreted by: HAYDEN BARILLAS MD Electronically signed by: HAYDEN BARILLAS MD 05/03/22 15 Assessment/Plan Assessment/Plan Assessment/Plan Left leg cellulitis Sepsis BISI on CKD stage IV (Cr. on last discharge was 2.29 in Oct.) T2DM - Insulin dependent CAD CVD TIA HTN HLD Plan Zosyn and Linezolid Gentle IVF resuscitation - patient is not hypotensive, do not want to fluid overload given CKD. Once patient can keep fluid status up orally, D/C fluids. ISS and hypoglycemia protocol Avoid nehprotoxic agents and hypotension Repeat CBC and CMP Monitor CR and K+ Other management per primary team appreciate recs Clinical Quality Measures DVT/VTE Risk/Contraindication: Contraindications-Mechi: Other *list below* Other: leg cellulitis MORENA DURÁN DO 05/04/22 1421: History of Present Illness History of Present Illness Time Seen by Provider: 12:40 History of Present Illness Surgery asked to consult regarding foot/leg cellulitis and swelling. When I spoke to pt this afternoon he stated he has been dealing with this for a long time, at least January. ABX are not working but also it has never looked this bad. He also stated that it only recently "split open" and that "it didn't look like that when I first stepped on the deer bones". He also reports that he thinks the swelling is worse than yesterday. He thinks he has had previous CT, but not sure about MRI. He does not think that it showed Osteomyelitis. Allergies and Home Medications Allergies Coded Allergies: vancomycin (Verified Allergy, Unknown, 03/30/21) cocaine (Unverified Adverse Reaction, Unknown, 11/13/21) Patient Home Medication List Home Medication List Reviewed: Yes Albuterol Sulfate (Ventolin Hfa) 1 Puff Puff, 2 PUFF IH Q4H, (Reported) Entered as Reported by: DASH VASQUEZ on 01/13/22 0310 Amlodipine Besylate (Amlodipine Besylate) 5 Mg Tablet, 10 MG PO DAILY, (Reported) Entered as Reported by: KLAUS MCKEON on 04/01/22 1109 Aspirin (Aspirin) 81 Mg Tab.chew, 81 MG PO DAILY, (Reported) Entered as Reported by: KLAUS MCKEON on 04/01/22 1102 Atorvastatin Calcium (Atorvastatin Calcium) 40 Mg Tablet, 40 MG PO DAILY, (Reported) Entered as Reported by: KLAUS MCKEON on 04/01/22 1103 Clopidogrel Bisulfate (Clopidogrel) 75 Mg Tablet, 75 MG PO DAILY, (Reported) Entered as Reported by: KLAUS MCKEON on 04/01/22 1103 Docusate Sodium (Docusate Sodium) 100 Mg Capsule, 100 MG PO DAILY PRN for CONSTIPATION-1ST LINE, (Reported) Entered as Reported by: KLAUS MCKEON on 01/14/22 1209 Ergocalciferol (Vitamin D2) (Vitamin D2) 1,250 Mcg (18126 Unit) Capsule, 1,250 MCG PO FRIDAY, (Reported) Entered as Reported by: KLAUS MCKEON on 04/01/22 110 Furosemide (Furosemide) 40 Mg Tablet, 40 MG PO HS, (Reported) Entered as Reported by: KLAUS MCKEON on 04/01/22 110 Gabapentin (Gabapentin) 800 Mg Tablet, 800 MG PO HS, (Reported) Entered as Reported by: KLAUS MCKEON on 04/01/22 110 Glucagon (Baqsimi) 3 Mg/Actuation [place], 3 MG NA DAILY PRN for HYPOGLYCEMIA, (Reported) Entered as Reported by: KLAUS MCKEON on 04/01/22 110 Glucagon (Gvoke Hypopen 2-Pack) 1 Mg/0.2 Ml Auto.injct, 1 MG SQ PRN PRN for HYPOGLYCEMIA, (Reported) Entered as Reported by: KLAUS MCKEON on 04/01/22 111 Insulin Aspart (Novolog Flexpen) 100 Unit/Ml (3 Ml) Solution, 20 UNITS SQ TIDWM, (Reported) Entered as Reported by: KLAUS MCKEON on 04/01/22 111 Last Action: Converted Insulin Glargine,Hum.rec.anlog (Basaglar Kwikpen U-100) 100 Unit/Ml (3 Ml) Insuln.pen, 34 UNIT SQ BID, (Reported) Entered as Reported by: KLAUS MCKEON on 04/01/221104 Last Action: Converted Linezolid (Zyvox) 600 Mg Tablet, 600 MG PO BID Prescribed by: VADIM RAMOS on 04/02/22 111 Lisinopril (Lisinopril) 40 Mg Tablet, 40 MG PO DAILY, (Reported) Entered as Reported by: KLAUS MCKEON on 04/01/221104 Past Wnwckav-Fpotec-Xiytsi Hx Patient Social History Smoking Status: Former Smoker Type Used: Smokeless Tobacco Alcohol Use?: Yes Surgeries History of Surgeries: Yes (skin graft) Surgeries: Cardiac (Heart cath w/ stent placement per pt. Dr. Dugan) Respiratory History of Respiratory Disorde: No Cardiovascular History of Cardiac Disorders: Yes Cardiac Disorders: Coronary Artery Disease, High Cholesterol, Hypertension Neurological History of Neurological Disord: Yes Neurological Disorders: Neuropathy Genitourinary History of Genitourinary Disor: Yes Genitourinary Disorders: Renal Failure Gastrointestinal History of Gastrointestinal Di: No Musculoskeletal History of Musculoskeletal Dis: Yes (lower extremity pain) Endocrine History of Endocrine Disorders: Yes Endocrine Disorders: Diabetes, Insulin dep HEENT History of HEENT Disorders: No Loss of Vision: Denies Hearing Impairment: Denies Cancer History of Cancer: No Integumentary History of Skin or Integumenta: Yes (chronic LE ulcers) Family Medical History Significant Family History: CAD Under 55 Years Old, Diabetes, Other Conditions/Hx Review of Systems-General Constitutional: No chills, No fever EENTM: No blurred vision, No double vision Respiratory: No cough, No dyspnea on exertion Cardiovascular: No chest pain, No palpitations Gastrointestinal: No abdominal pain, No constipation, No diarrhea; nausea; No vomiting Genitourinary: No decreased output (per pt baseline), No dysuria Musculoskeletal: joint pain (LLE), joint swelling (LLE; ankle), muscle pain (L calf tenderness) Skin: No change in color, No change in hair/nails; lesions (Non-healing lesions of both LE, patient states they have been there for years) Psychiatric/Neurological: Denies Anxiety, Denies Depressed, Denies Seizure Physical Exam-General Problems Physical Exam General Appearance: mild distress (secondary to pain), obese Eyes: Bilateral Eye PERRL, Bilateral Eye EOMI HEENT: pharynx normal; No scleral icterus (R), No scleral icterus (L) Neck: normal inspection Respiratory: chest non-tender, lungs clear, normal breath sounds, no respirato ry distress, no accessory muscle use Cardiovascular: regular rate, rhythm, no murmur Gastrointestinal: non tender, soft, no organomegaly Extremities: calf tenderness (Left), inflammation (LLE; extends to proximal 1/3 of tibia currently. ), pedal edema (LLE), other (non-healing wounds, bilateral LE) Neurologic/Psychiatric: alert, oriented x 3 Skin: normal color, warm/dry Lymphatic: no adenopathy (neck and axilla) Assessment/Plan Assessment/Plan Assessment/Plan Left leg cellulitis Sepsis BISI on CKD stage IV (Cr. on last discharge was 2.29 in Mar.) T2DM - Insulin dependent CAD CVD TIA HTN HLD Plan Would stop Zosyn because of the MRSA and continue Linezolid. Await final antibioticogram Gentle IVF resuscitation - patient is not hypotensive, do not want to fluid overload given CKD. Once patient can keep fluid status up orally, D/C fluids. ISS and hypoglycemia protocol Avoid nehprotoxic agents and hypotension Repeat CBC and CMP Monitor CR and K+ I reviewed the old CT, MRI and US. Pt did not have drainable abscess or Osteomyelitis at that time. He may need a repeat CT to rule out abscess, will monitor leg. Supervisory-Addendum Brief Verification & Attestation Participated in pt care: history, MDM, physical Personally performed: exam, history, MDM, supervision of care Care discussed with: Medical Student Procedures: n/a Verification and Attestation of Medical Student E/M Service A medical student performed and documented this service. I then reviewed and verified all information documented by the medical student and made modifications to such information, when appropriate. I personally performed a physical exam, medical decision making and then discussed any differences between the notes and made revisions as necessary to create one note. Morena Durán , 05/04/22 , 14:31 SHAQUILLE ELIAS May 04, 2022 10:25 MORENA DURÁN DO May 04, 2022 14:21
[2022-05-04 11:23] VITALS: BP 144/79
[2022-05-04] MEDS: ACETAMINOPHEN 325 MG TABLET PO PRN (15:55)
[2022-05-04 16:00] VITALS: BP 148/80
[2022-05-04] MEDS: ONDANSETRON 4 MG/2 ML (SDV) Z0FRAN IV PRN (18:19)
[2022-05-04 19:26] VITALS: BP 140/67
[2022-05-04] MEDS: MIRTAZAPINE 15 MG (REMERON) TAB PO SCH (21:08)
[2022-05-04 23:29] VITALS: BP 119/57
[2022-05-05] VITALS (8 sets, daily range): BP systolic 133–173; BP diastolic 57–90
[2022-05-05] MEDS: inSUlin ASPART (NovoLOG) 1 UNIT/0.01 ML (CHARGE PER UNIT) SC SCH ×7 (05:21→20:19)
[2022-05-05 05:48] LABS: BASOPHILS % (AUTO) 0 % (0-10); EOSINOPHILS # (AUTO) 0.1 10^3/uL (0.0-0.3); EOSINOPHILS % (AUTO) 1 % (0-10); HEMATOCRIT 29 % (40-54); HEMOGLOBIN 9.4 g/dL (13.3-17.7); LYMPHOCYTES # (AUTO) 1.1 10^3/uL (1.0-4.0); LYMPHOCYTES % (AUTO) 10 % (12-44); MEAN CORPUSCULAR HEMOGLOBIN 28 pg (25-34); MEAN CORPUSCULAR HGB CONC 32 g/dL (32-36); MEAN CORPUSCULAR VOLUME 86 fL (80-99); MEAN PLATELET VOLUME 10.5 fL (9.0-12.2); MONOCYTES # (AUTO) 0.5 10^3/uL (0.0-1.0); MONOCYTES % (AUTO) 4 % (0-12); NEUTROPHILS # (AUTO) 9.4 10^3/uL (1.8-7.8); NEUTROPHILS % (AUTO) 83 % (42-75); PLATELET COUNT 160 10^3/uL (130-400); WHITE BLOOD COUNT 11.3 10^3/uL (4.3-11.0)
[2022-05-05] MEDS: PIPERACILLIN SODIUM/TAZOBACTAM 4.5 GM in NS (IVPB) 100 ML IV SCH ×3 (05:50→23:06)
[2022-05-05 06:09] LABS: BILIRUBIN,TOTAL 0.8 MG/DL (0.1-1.0); CALCIUM 8.4 MG/DL (8.5-10.1); CREATININE SERUM 3.76 MG/DL (0.60-1.30); POTASSIUM 4.6 MMOL/L (3.6-5.0); TOTAL PROTEIN 6.5 GM/DL (6.4-8.2)
--- NOTE | 2022-05-05 06:56 | Progress Note - Hospitalist ---
Subjective HPI/CC On Admission Date Seen by Provider: May 05, 2022 Time Seen by Provider: 11:00 Chief complaint: Left foot cellulitis with sepsis HPI: This is a 56-year-old male clinic patient of [facility] who has a past medical history of insulin-dependent diabetes and noncompliance who presents to the ER with left foot pain and increased edema. He was found to have significant sepsis so he was given IV fluids and empiric antibiotics and general surgery consultation. Today he is having rigors and blood cultures are positive for bacteria. He was placed on broad-spectrum antibiotics of Zyvox and Zosyn. We will monitor his kidney function closely. Subjective/Events-last exam Much improved status Less pain in left leg Cellulitis much improved on broad spectrum abx Creatinine still rising May need Dr Jiménez tomorrow to evaluate since she sees him on anyway UOP good Review of Systems General: Fatigue, Malaise Musculoskeletal: leg pain Focused Exam Lactate Level 05/03/22 14:50: Lactic Acid Level 2.14*H 05/03/22 17:45: Lactic Acid Level 1.44 Objective Exam Vital Signs Vital Signs Date Time Temp Pulse Resp B/P (MAP) Pulse Ox O2 Delivery O2 Flow Rate FiO2 05/05/22 16:34 36.8 101 20 140/76 (97) 91 Nasal Cannula 1.50 05/03/22 18:19 21 Capillary Refill : Less Than 3 Seconds General Appearance: No Apparent Distress, WD/WN, Chronically ill Respiratory: Lungs Clear, Normal Breath Sounds Cardiovascular: Regular Rate, Rhythm Extremity: Other (left leg less edema and erythema) Neurologic/Psychiatric: Alert, Oriented x3 Results/Procedures Lab Laboratory Tests 05/05/22 05:20 Patient resulted labs reviewed. Assessment/Plan Assessment and Plan Assess & Plan/Chief Complaint Assessment: Sepsis Left foot cellulitis Bacteremia Peripheral vascular disease Diabetes Hypertension Chronic kidney disease stage IV Plan: Broad-spectrum antibiotics IV fluid General surgery consultation DVT prophylaxis Diagnosis/Problems Diagnosis/Problems (1) Sepsis (2) Bacteremia (3) CKD (chronic kidney disease) stage 4, GFR 15-29 ml/min (4) DVT prophylaxis Status: Acute (5) Hyperlipidemia Status: Chronic (6) Hypertension Status: Chronic (7) Cellulitis of left foot (8) Uncontrolled diabetes mellitus Status: Acute (9) Left leg cellulitis Status: Acute Clinical Quality Measures DVT/VTE Risk/Contraindication: Contraindications-Mechi: Other *list below* Other: leg cellulitis MONTSERRAT BARNETT DO May 05, 2022 06:55
[2022-05-05] MEDS: amLODIPine 10 MG (NORVASC) TAB PO SCH (08:46)
[2022-05-05] MEDS: CLOPIDOGREL 75 MG (PLAVIX) TABLET PO SCH (08:46)
[2022-05-05] MEDS: GABAPENTIN 400 MG (NEURONTIN) CAP PO SCH (08:46)
[2022-05-05] MEDS: DOCUSATE SODIUM 100 MG (COLACE) CAP PO SCH ×2 (08:46→20:19)
[2022-05-05] MEDS: SENNOSIDES 8.6 MG (SENOKOT) TAB PO SCH ×2 (08:46→20:19)
[2022-05-05] MEDS: PANTOPRAZOLE 40 MG (PROTONIX) TAB PO SCH (08:46)
[2022-05-05] MEDS: LINEZOLID IVPB 300 ML IV SCH ×2 (08:47→20:32)
[2022-05-05] MEDS: NS IV 1000 ML 1,000 ML IV SCH ×2 (08:57→16:31)
[2022-05-05] MEDS: ONDANSETRON 4 MG/2 ML (SDV) Z0FRAN IV PRN (09:21)
--- NOTE | 2022-05-05 10:15 | Progress Note - Surgery ---
SHAQUILLE ELIAS 05/05/22 1015: Subjective Date Seen by a Provider: May 05, 2022 Time Seen by a Provider: 10:10 Subjective/Events-last exam Patient having intermittent nausea with emesis overnight and this morning. Patient states that after he tried to eat eggs for breakfast he got very queasy and had some dry-heaving into his trash can. Patient states that when he does have emesis he does not notice any blood or dark discoloration. Patient denies any other systemic symptoms. Patient has still been producing urine. Per nursing, patients LE does look more swollen and red today. Patient is on fluid replace at 125 cc/hr Review of Systems General: No Chills, No Night Sweats HEENT: No Head Aches, No Visual Changes Pulmonary: No Dyspnea, No Cough Cardiovascular: No: Chest Pain, Palpitations Gastrointestinal: Nausea, Vomiting; No: Abdominal Pain, Diarrhea, Constipation Genitourinary: No Dysuria, No Frequency, No Incontinence, No Hematuria Musculoskeletal: leg pain (LLE), foot pain (LLE) Neurological: No: Weakness, Numbness Focused Exam Lactate Level 05/03/22 14:50: Lactic Acid Level 2.14*H 05/03/22 17:45: Lactic Acid Level 1.44 Objective Exam Vital Signs Date Time Temp Pulse Resp B/P (MAP) Pulse Ox O2 Delivery O2 Flow Rate FiO2 05/05/22 08:00 91 Room Air 05/05/22 07:45 37.1 97 20 137/77 (97) 89 Room Air 05/05/22 03:38 36.8 96 20 133/57 (82) 92 Room Air 05/04/22 23:29 36.8 90 20 119/57 (77) 95 Room Air 05/04/22 20:38 95 Room Air 05/04/22 19:26 37.6 98 20 140/67 (91) 95 Room Air 05/04/22 19:11 Room Air 05/04/22 16:00 37.8 100 20 148/80 (102) 94 Room Air 05/04/22 11:23 36.9 99 20 144/79 (100) 96 Room Air I & O 05/05/22 07:00 Intake Total 1462 ml Balance 1462 ml Capillary Refill : Less Than 3 Seconds General Appearance: Chronically ill, Mild Distress HEENT: PERRL/EOMI Neck: Normal Inspection, Non Tender Respiratory: Chest Non Tender, Lungs Clear, Normal Breath Sounds, No Accessory Muscle Use, No Respiratory Distress Cardiovascular: Regular Rate, Rhythm, No Murmur; No Normal Peripheral Pulses (unable to palpate pedal pulses bilat) Gastrointestinal: non tender, soft Extremity: Inflammation (LLE; appears to me that foot looks more erythematous and feels more hot today, appears worse), Pedal Edema (bilat), Other (traumtic incisions along medial plantar surface of left foot ) Neurologic/Psychiatric: Alert, Oriented x3 Skin: Warm/Dry, Pallor Results Lab Laboratory Tests 05/05/22 05:19: Glucometer 79 05/05/22 05:20: White Blood Count 11.3H, Red Blood Count 3.37L, Hemoglobin 9.4L, Hematocrit 29L, Mean Corpuscular Volume 86, Mean Corpuscular Hemoglobin 28, Mean Corpuscular Hemoglobin Concent 32, Red Cell Distribution Width 14.9H, Platelet Count 160, Mean Platelet Volume 10.5, Immature Granulocyte % (Auto) 2, Neutrophils (%) (Auto) 83H, Lymphocytes (%) (Auto) 10L, Monocytes (%) (Auto) 4, Eosinophils (%) (Auto) 1, Basophils (%) (Auto) 0, Neutrophils # (Auto) 9.4H, Lymphocytes # (Auto) 1.1, Monocytes # (Auto) 0.5, Eosinophils # (Auto) 0.1, Basophils # (Auto) 0.0, Immature Granulocyte # (Auto) 0.2H, Sodium Level 133L, Potassium Level 4.6, Chloride Level 103, Carbon Dioxide Level 17L, Anion Gap 13, Blood Urea Nitrogen 42H, Creatinine 3.76H, Estimat Glomerular Filtration Rate 18, BUN/Creatinine Ratio 11, Glucose Level 90, Calcium Level 8.4L, Corrected Calcium 9.2, Total Bilirubin 0.8, Aspartate Amino Transf (AST/SGOT) 15, Alanine Aminotransferase (ALT/SGPT) 16, Alkaline Phosphatase 46, Total Protein 6.5, Albumin 3.0L Microbiology 05/03/22 Gram Stain - Final, Resulted 05/03/22 Wound Culture - Preliminary, Resulted Staphylococcus aureus Strep, Beta Hemolytic Group G 05/03/22 Blood Culture - Preliminary, Resulted No growth Assessment/Plan Assessment/Plan Assessment/Plan Left leg cellulitis Sepsis BISI on CKD stage IV (Cr. on last discharge was 2.29 in Mar.) T2DM - Insulin dependent CAD CVD TIA HTN HLD Plan 2nd BC showing no growth, believe first AC draw was contaminated. Foot grew out SA presumed MRSA. Patient on Linezolid 2/2 CKD and allergy to Vanc. Given (-) growth of 2nd AC draw, feel that zosyn could be D/C at this time, could also await Bacteriogram for sensitivities. Gentle IVF resuscitation - Patient appears slightly more edematous today, consider decrease IVF rate. ISS and hypoglycemia protocol Avoid nehprotoxic agents and hypotension Repeat CBC and CMP Monitor CR and K+ Given worsening appearance of LLE today and chronicity of current infectious process, would consider repeat CT to rule out abscess or Osteomyelitis. Clinical Quality Measures DVT/VTE Risk/Contraindication: Contraindications-Mechi: Other *list below* Other: leg cellulitis DUNG CAMPBELL DO 05/05/22 1406: Subjective Time Seen by a Provider: 12:32 Subjective/Events-last exam Pt seen and examined, states pain is same as yesterday and mostly controlled. Thinks foot may be worse today. Review of Systems Pulmonary: No Dyspnea, No Cough Cardiovascular: No: Chest Pain, Palpitations Gastrointestinal: Nausea, Vomiting; No: Abdominal Pain Genitourinary: No Dysuria, No Frequency Objective Exam General Appearance: Chronically ill HEENT: PERRL/EOMI Respiratory: Chest Non Tender, Lungs Clear, Normal Breath Sounds, No Accessory Muscle Use, No Respiratory Distress Cardiovascular: Regular Rate, Rhythm, No Murmur Gastrointestinal: non tender, soft Extremity: Inflammation (LLE; appears to me that foot looks more erythematous and feels more hot today, appears worse), Pedal Edema (bilat), Other (traumtic incisions along medial plantar surface of left foot ) Neurologic/Psychiatric: Alert, Oriented x3 Skin: Pallor Assessment/Plan Assessment/Plan Assessment/Plan Left leg cellulitis - possibly worse today Sepsis BISI on CKD stage IV (Cr. on last discharge was 2.29 in Mar.) T2DM - Insulin dependent CAD CVD TIA HTN HLD Plan 2nd BC showing no growth, believe first AC draw was contaminated. Foot grew out SA presumed MRSA. Patient on Linezolid 2/2 CKD and allergy to Vanc. Given (-) growth of 2nd AC draw, feel that zosyn could be D/C at this time, could also await Bacteriogram for sensitivities. Gentle IVF resuscitation - Patient appears slightly more edematous today, consider decrease IVF rate. ISS and hypoglycemia protocol Avoid nehprotoxic agents and hypotension Repeat CBC and CMP Monitor CR and K+ Given worsening appearance of LLE today and chronicity of current infectious process, will order CT to rule out abscess or Osteomyelitis. Supervisory-Addendum Brief Verification & Attestation Participated in pt care: history, MDM, physical Personally performed: exam, history, MDM, supervision of care Care discussed with: Medical Student Procedures: n/a Verification and Attestation of Medical Student E/M Service A medical student performed and documented this service. I then reviewed and verified all information documented by the medical student and made modifications to such information, when appropriate. I personally performed a physical exam, medical decision making and then discussed any differences between the notes and made revisions as necessary to create one note. Dung Campbell , 05/05/22 , 14:06 SHAQUILLE ELIAS May 05, 2022 10:15 DUNG CAMPBELL DO May 05, 2022 14:06
[2022-05-05] MEDS: ALPRAZolam 0.5 MG (XANAX) TAB PO PRN (14:37)
--- NOTE | 2022-05-05 15:06 | Diagnostic Imaging Report ---
PROCEDURE: CT left lower extremity without contrast. TECHNIQUE: Multiple contiguous axial images were obtained through the left lower extremity without the use of intravenous contrast. Sagittal and coronal reformations were then performed. Auto Exposure Controls were utilized during the CT exam to meet ALARA standards for radiation dose reduction. INDICATION: Cellulitis. FINDINGS: There is diffuse soft tissue edema in the left lower extremity. This is more pronounced about the ankle. There is no discrete fluid collection is appreciated. There is no CT evidence of osteomyelitis. There is no fracture or dislocation. IMPRESSION: Diffuse soft tissue edema in the left lower extremity without discrete fluid collection or drainable abscess. Additionally, there is no CT evidence of osteomyelitis. Dictated by: Dictated on workstation # [id number]
[2022-05-05] MEDS: MIRTAZAPINE 15 MG (REMERON) TAB PO SCH (20:33)
[2022-05-05] MEDS: RT-ALBUTEROL HFA 8.5 GM INHALER IH PRN (23:32)
[2022-05-05] MEDS ORDERED: FUROSEMIDE 40 MG/4 ML INJ (LASIX) ONE (23:41)
[2022-05-05] MEDS ORDERED: FUROSEMIDE 40 MG/4 ML INJ (LASIX) IVP ONE (23:45)
[2022-05-05] MEDS: ACETAMINOPHEN 325 MG TABLET PO PRN (23:56)
[2022-05-06 00:04] VITALS: BP 145/86
[2022-05-06 04:16] VITALS: BP 132/87
[2022-05-06 05:45] LABS: BASOPHILS % (AUTO) 0 % (0-10); EOSINOPHILS # (AUTO) 0.1 10^3/uL (0.0-0.3); EOSINOPHILS % (AUTO) 1 % (0-10); HEMATOCRIT 27 % (40-54); HEMOGLOBIN 8.7 g/dL (13.3-17.7); LYMPHOCYTES # (AUTO) 0.8 10^3/uL (1.0-4.0); LYMPHOCYTES % (AUTO) 10 % (12-44); MEAN CORPUSCULAR HEMOGLOBIN 28 pg (25-34); MEAN CORPUSCULAR HGB CONC 33 g/dL (32-36); MEAN CORPUSCULAR VOLUME 86 fL (80-99); MEAN PLATELET VOLUME 10.4 fL (9.0-12.2); MONOCYTES # (AUTO) 0.3 10^3/uL (0.0-1.0); MONOCYTES % (AUTO) 5 % (0-12); NEUTROPHILS # (AUTO) 6.1 10^3/uL (1.8-7.8); NEUTROPHILS % (AUTO) 83 % (42-75); PLATELET COUNT 164 10^3/uL (130-400); WHITE BLOOD COUNT 7.5 10^3/uL (4.3-11.0)
[2022-05-06 05:59] LABS: BILIRUBIN,TOTAL 0.8 MG/DL (0.1-1.0); CALCIUM 8.7 MG/DL (8.5-10.1); CREATININE SERUM 4.06 MG/DL (0.60-1.30); POTASSIUM 4.3 MMOL/L (3.6-5.0); TOTAL PROTEIN 6.6 GM/DL (6.4-8.2)
[2022-05-06] MEDS: inSUlin ASPART (NovoLOG) 1 UNIT/0.01 ML (CHARGE PER UNIT) SC SCH ×7 (06:00→21:18)
[2022-05-06] MEDS: PIPERACILLIN SODIUM/TAZOBACTAM 4.5 GM in NS (IVPB) 100 ML IV SCH (06:00)
[2022-05-06 06:39] LABS: ABG OXYGEN SATURATION 99 % (94-100); ABG PCO2 44 MMHG (35-45); ABG PO2 104 MMHG (79-93); ABG TCO2 21.2 MMOL/L (21.0-31.0); ALLENS TEST YES-POS
[2022-05-06 06:40] LABS: INSPIRED O2 10L; PATIENT TEMP 63.4; VENTILATOR NO
[2022-05-06 06:41] LABS: ABG PH 7.27 (7.37-7.43)
[2022-05-06 07:13] VITALS: BP 153/81
[2022-05-06] MEDS: ACETAMINOPHEN 325 MG TABLET PO PRN ×4 (07:45→21:15)
--- NOTE | 2022-05-06 07:46 | Progress Note - Surgery ---
"SHAQUILLE ELIAS 05/06/22 0746: Subjective Date Seen by a Provider: May 06, 2022 Time Seen by a Provider: 07:20 Subjective/Events-last exam Patient being seen in follow up for LLE cellulitits. Patient sleeping in bed w/ oxymask on at 6L. BiPAP was in patient's room settings 05/28| 16 | 50%, unsure how long patient actually tolerated it. Yesterday when going down to CT scanner patient said he started becoming short of breath and it progressively got worse until he required up to 10L O2 via Oxymask. Apparently patient became slightly confused during this episdoe. Patient states that now he feels like he can breathe fine. Is A+O x3. Denies any pain generally and specifically in his LLE. Patient does state that he is starting to have a harder time peeing and is producing less urine. Denies fever, chills, chest pain, palpitations, pleuritic pain. Patient's Cr continues to worsen. Yesterday pt had a CT scan that showed soft tissue edema w/ no abscess or signs of osteomyelitis. Patient had an ABG yesterday during his hypoxic episode - 7.27 | 44 | 104 (H) | 20 (L) | 99% Review of Systems General: No Chills, No Night Sweats HEENT: No Head Aches, No Visual Changes Pulmonary: Dyspnea (resolved); No Cough, No Pleuritic Chest Pain Cardiovascular: No: Chest Pain, Palpitations Gastrointestinal: No: Nausea, Vomiting, Abdominal Pain Genitourinary: No Dysuria; Other (decreased output) Musculoskeletal: No: leg pain, foot pain Neurological: No: Weakness, Numbness, Confusion Focused Exam Lactate Level 05/03/22 14:50: Lactic Acid Level 2.14*H 05/03/22 17:45: Lactic Acid Level 1.44 Objective Exam Vital Signs Date Time Temp Pulse Resp B/P (MAP) Pulse Ox O2 Delivery O2 Flow Rate FiO2 05/06/22 07:13 36.9 90 18 153/81 (105) 92 Nasal Cannula 6.00 05/06/22 06:49 OxyMask 6.00 05/06/22 06:47 95 OxyMask 10.00 05/06/22 06:46 98 OxyMask 6.00 05/06/22 06:33 96 OxyMask 10.00 05/06/22 04:16 36.6 95 20 132/87 (102) 96 OxyMask 10.00 05/06/22 02:41 91 OxyMask 10.00 05/06/22 02:37 37.2 101 24 96 OxyMask 10.00 05/06/22 00:26 37.2 05/06/22 00:04 115 20 98 50.00 05/05/22 23:56 37.6 05/05/22 23:49 37.6 115 20 145/86 (105) 98 NIV Bilevel 50.00 05/05/22 23:32 97 OxyMask 15.00 05/05/22 23:12 37.1 102 22 172/86 (114) 90 OxyMask 15.00 05/05/22 20:51 97 157/88 (111) 05/05/22 20:24 94 Room Air 05/05/22 20:22 36.3 104 22 173/80 (111) 90 Room Air 05/05/22 16:34 36.8 101 20 140/76 (97) 91 Nasal Cannula 1.50 05/05/22 11:30 37.2 97 22 153/90 (111) 90 Room Air 05/05/22 08:00 91 Room Air 05/05/22 07:45 37.1 97 20 137/77 (97) 89 Room Air I & O 05/06/22 07:00 Intake Total 2670 ml Output Total 200 ml Balance 2470 ml Capillary Refill : Less Than 3 Seconds General Appearance: No Apparent Distress, WD/WN HEENT: PERRL/EOMI Neck: Normal Inspection, Non Tender Respiratory: No Accessory Muscle Use, No Respiratory Distress, Decreased Breath Sounds (Right lower lobes) Cardiovascular: Regular Rate, Rhythm, No Murmur, Other (no DP or PT pulses appreciable ) Gastrointestinal: non tender, soft Extremity: Pedal Edema (3+ pitting, roughly the same as yesterday), Other (LLE erythema improved today.) Neurologic/Psychiatric: Alert, Oriented x3 Skin: Normal Color, Warm/Dry Results Lab Laboratory Tests 05/05/22 16:27: Glucometer 101 05/05/22 19:30: Glucometer 128H 05/05/22 20:16: Glucometer 110 05/05/22 23:20: Glucometer 119H 05/06/22 05:01: Glucometer 114H 05/06/22 05:18: White Blood Count 7.5, Red Blood Count 3.12L, Hemoglobin 8.7L, Hematocrit 27L, Mean Corpuscular Volume 86, Mean Corpuscular Hemoglobin 28, Mean Corpuscular Hemoglobin Concent 33, Red Cell Distribution Width 14.8H, Platelet Count 164, Mean Platelet Volume 10.4, Immature Granulocyte % (Auto) 1, Neutrophils (%) (Auto) 83H, Lymphocytes (%) (Auto) 10L, Monocytes (%) (Auto) 5, Eosinophils (%) (Auto) 1, Basophils (%) (Auto) 0, Neutrophils # (Auto) 6.1, Lymphocytes # (Auto) 0.8L, Monocytes # (Auto) 0.3, Eosinophils # (Auto) 0.1, Basophils # (Auto) 0.0, Immature Granulocyte # (Auto) 0.1, Sodium Level 136, Potassium Level 4.3, Chloride Level 105, Carbon Dioxide Level 16L, Anion Gap 15H, Blood Urea Nitrogen 42H, Creatinine 4.06H, Estimat Glomerular Filtration Rate 16, BUN/Creatinine Ratio 10, Glucose Level 123H, Calcium Level 8.7, Corrected Calcium 9.5, Total Bilirubin 0.8, Aspartate Amino Transf (AST/SGOT) 14, Alanine Aminotransferase (ALT/SGPT) 14, Alkaline Phosphatase 48, Total Protein 6.6, Albumin 3.0L 05/06/22 06:33: Blood Gas Puncture Site R RAD, Blood Gas Patient Temperature 63.4, Arterial Blood pH 7.27*L, Arterial Blood Partial Pressure CO2 44, Arterial Blood Partial Pressure O2 104H, Arterial Blood HCO3 20L, Arterial Blood Total CO2 21.2, Arterial Blood Oxygen Saturation 99, Arterial Blood Base Excess -6.0L, Andre Test YES-POS, Blood Gas Ventilator Setting NO, Blood Gas Inspired Oxygen 10L Microbiology 05/03/22 Gram Stain - Final, Resulted 05/03/22 Wound Culture - Preliminary, Resulted Staphylococcus aureus Streptococcus dysgalactiae 05/03/22 Blood Culture - Preliminary, Resulted No growth Assessment/Plan Assessment/Plan Assessment/Plan Left leg cellulitis - possibly worse today Sepsis BISI on CKD stage IV (Cr. on last discharge was 2.29 in Mar.) T2DM - Insulin dependent CAD CVD TIA HTN HLD Plan 2nd BC showing no growth, believe first AC draw was contaminated. Foot grew out SA presumed MRSA. Patient on Linezolid 2/2 CKD and allergy to Vanc. (-) growth of second AC pull, suspect contamination. Awaiting Bacteriogram, patient is responding to Linezolid and Zosyn Gentle IVF resuscitation ISS and hypoglycemia protocol Avoid nehprotoxic agents and hypotension Repeat CBC and CMP Monitor CR and K+ LLE appears improved today. Patient's ABG is significant for metabolic acidosis. Patient also has an elevated anion gap. This HAGMA could be due to uremia. Would continue Abx given patient's repsone and consult Dr. Jiménez for any recs on patient's worsening BISI on CKD and determining when/if patient will need a form of dialysis. Clinical Quality Measures DVT/VTE Risk/Contraindication: Contraindications-Mechi: Other *list below* Other: leg cellulitis MORENA CAMPBELL DO 05/06/22 1151: Subjective Time Seen by a Provider: 11:12 Subjective/Events-last exam Pt seen and examined, he is doing ok now but had a very bad night. He states hi s left foot pain is minimal. Review of Systems General: No Chills, No Night Sweats Pulmonary: Dyspnea (resolved); No Cough Cardiovascular: No: Chest Pain, Palpitations Gastrointestinal: No: Nausea, Vomiting Genitourinary: Other (decreased output) Musculoskeletal: No: leg pain, foot pain Objective Exam General Appearance: No Apparent Distress, Chronically ill HEENT: PERRL/EOMI Respiratory: No Accessory Muscle Use, No Respiratory Distress, Decreased Breath Sounds (Right lower lobes) Cardiovascular: Regular Rate, Rhythm, No Murmur, Other (no DP or PT pulses appreciable ) Gastrointestinal: non tender, soft Extremity: Pedal Edema (3+ pitting, roughly the same as yesterday), Other (LLE erythema improved today.) Assessment/Plan Assessment/Plan Assessment/Plan Left leg cellulitis - better today Sepsis BISI on CKD stage IV (Cr. on last discharge was 2.29 in Mar.) T2DM - Insulin dependent CAD CVD TIA HTN HLD Plan 2nd BC showing no growth, believe first AC draw was contaminated. Foot grew out SA presumed MRSA. Patient on Linezolid 2/2 CKD and allergy to Vanc. (-) growth of second AC pull, suspect contamination. Awaiting Bacteriogram, patient is responding to Linezolid and Zosyn Gentle IVF resuscitation ISS and hypoglycemia protocol Avoid nehprotoxic agents and hypotension Repeat CBC and CMP Monitor CR and K+ LLE appears improved today. Patient's ABG is significant for metabolic acidosis. Patient also has an elevated anion gap. This HAGMA could be due to uremia. Would continue Abx given patient's repsone and consult Dr. Jiménez for any recs on patient's worsening BISI on CKD and determining when/if patient will need a form of dialysis. I reviewed the CT myself and there is no fluid collection (abscess) to drain and no osteomyelitis was seen. No surgical indications at this time. Max medical management. Supervisory-Addendum Brief Verification & Attestation Participated in pt care: history, MDM, physical Personally performed: exam, history, MDM, supervision of care Care discussed with: Medical Student Procedures: n/a Verification and Attestation of Medical Student E/M Service A medical student performed and documented this service. I then reviewed and verified all information documented by the medical student and made modifications to such information, when appropriate. I personally performed a physical exam, medical decision making and then discussed any differences between the notes and made revisions as necessary to create one note. Morena Campbell , 05/06/22 , 11:51 SHAQUILLE ELIAS May 06, 2022 07:46 MORENA CAMPBELL DO May 06, 2022 11:51"
--- NOTE | 2022-05-06 08:52 | Diagnostic Imaging Report ---
INDICATION: Wheezing. TIME OF EXAM: 7:10 AM. COMPARISON: Correlation is made with the prior chest from 05/03/2022. FINDINGS: The heart is enlarged. There appears to be some infiltrate in the right perihilar and right basilar region. The left base is somewhat obscured by the enlarged heart. No effusion or pneumothorax is seen. IMPRESSION: Cardiomegaly with right perihilar and right basilar infiltrates. Dictated by: Dictated on workstation # [id number]
[2022-05-06] MEDS ORDERED: GABA300C PO (09:16)
[2022-05-06] MEDS ORDERED: CEPH500C PO (09:16)
[2022-05-06] MEDS ORDERED: MIRT-68 PO (09:17)
[2022-05-06] MEDS ORDERED: LACT1CAP28 PO (09:17)
[2022-05-06] MEDS: amLODIPine 10 MG (NORVASC) TAB PO SCH (09:59)
[2022-05-06 10:05] VITALS: BP 153/81
[2022-05-06] MEDS: LINEZOLID IVPB 300 ML IV SCH ×2 (10:08→21:09)
[2022-05-06] MEDS: DOCUSATE SODIUM 100 MG (COLACE) CAP PO SCH ×2 (10:10→21:09)
[2022-05-06] MEDS: PANTOPRAZOLE 40 MG (PROTONIX) TAB PO SCH (10:10)
[2022-05-06] MEDS: GABAPENTIN 400 MG (NEURONTIN) CAP PO SCH (10:10)
[2022-05-06] MEDS: SENNOSIDES 8.6 MG (SENOKOT) TAB PO SCH ×2 (10:10→21:09)
[2022-05-06] MEDS: CLOPIDOGREL 75 MG (PLAVIX) TABLET PO SCH (10:10)
--- NOTE | 2022-05-06 10:12 | Diagnostic Imaging Report ---
PROCEDURE: US Renal Bilateral. TECHNIQUE: Multiple real-time grayscale images were obtained over the kidneys in various projections bilaterally. INDICATION: Renal failure Right kidney measures 12.5 x 5.8 x 5.9 cm. Left kidney measures 12.9 x 6.0 x 5.3 cm. There is no mass, calculus or hydronephrosis seen in the kidney. Urinary bladder appears normal. IMPRESSION: Unremarkable renal ultrasound. Dictated by: Dictated on workstation # [id number]
[2022-05-06 10:41] LABS: BILIRUBIN,URINE NEGATIVE (NEGATIVE); CLARITY,URINE CLEAR; COLOR,URINE YELLOW; GLUCOSE, URINE (UA) NEGATIVE (NEGATIVE); KETONES,URINE NEGATIVE (NEGATIVE); LEUKOCYTE ESTERASE ,URINE NEGATIVE (NEGATIVE); NITRITE,URINE NEGATIVE (NEGATIVE); PH,URINE 5.5 (5-9); PROTEIN,URINE 2+ (NEGATIVE)
[2022-05-06 10:49] LABS: AMORPHOUS SEDIMENT,UR FEW AMOR URATES /LPF; BACTERIA,URINE NEGATIVE /HPF
[2022-05-06 11:08] VITALS: BP 137/78
--- NOTE | 2022-05-06 11:26 | Physical Therapy Evaluation ---
PT Evaluation-General Medical Diagnosis Admission Date May 03, 2022 at 16:46 Medical Diagnosis: cellulitis left foot/CKD Onset Date: May 03, 2022 Therapy Diagnosis Therapy Diagnosis: debility/weakness Precautions Precautions/Isolations: Standard Precautions Referral Physician: Lindy Reason for Referral: Evaluation/Treatment Medical History Pertinent Medical History: DM, HTN, Renal Insufficiency Current History ER secondary to inability to move all extremities per spouse report Reviewed History: Yes Social History Home: Single Level Current Living Status: Spouse PT Steps Into Home: 2 (small/short per spouse) Prior Prior Level of Function SCALE: Activities may be completed with or without assistive devices. 5-Xtzgkzphph-xuashdm completes the activity by him/herself with no assistance from a helper. 5-Set-up or Clean-up Assistance-helper sets up or cleans up; patient completes activity. [place] assists only prior to or following the activity. 4-Supervision or Touching Assistance-helper provides verbal cues and/or touching/steadying and/or contact guard assistance as patient completes activity. Assistance may be provided throughout the activity or intermittently. 3-Partial/Moderate Assistance-helper does LESS THAN HALF the effort. [place] lifts, holds or supports trunk or limbs, but provides less than half the effort. 2-Substantial/Maximal Assistance-helper does MORE THAN HALF the effort. [place] lifts or holds trunk or limbs and provides more than half the effort. 0-Asnxwxhzp-sqstht does ALL the effort. Patient does none of the effort to complete the activity. Or, the assistance of 2 or more helpers is required for the patient to complete the activity. If activity was not attempted, code reason: 7-Patient Refused. 9-Not Applicable-not attempted and the patient did not perform the activity before the current illness, exacerbation or injury. 10-Not Attempted due to Environmental Limitations-(lack of equipment, weather restraints, etc.). 88-Not Attempted due to Medical Conditions or Safety Concerns. Bed Mobility: 6 Transfers (B,C,W/C): 6 Gait: 6 Stairs: 6 Indoor Mobility (Ambulation): Independent Stairs: Independent Prior Devices Use: Walker (4WW) Prior Device Use: cane PT Evaluation-Current Subjective Patient agrees to PT. Objective Patient Orientation: Person, Time, Situation Attachments: Oxygen, IV ROM/Strength ROM Lower Extremities bilateral LE WFL Strength Lower Extremities 4-/5 grossly bilateral LE all planes Integumentary/Posture Bowel Incontinence: No Bladder Incontinence: Yes Posture WFL Neuromuscular (Tone, Coordination, Reflexes) grossly intact Sensory Vision: Functional Hearing: Functional Transfers Roll Left to Right (QC): 6 Sit to Lying (QC): 6 Lying to Sitting/Side of Bed(Q: 6 Sit to Stand (QC): 4 Gait Mode of Locomotion: Walk Anticipated Mode of Locomotion: Walk Walk 10 feet (QC): 4 Walk 50 ft with 2 Turns(QC): 4 (in room) Distance: 50' Gait Assistive Device: FWW Comments/Gait Description functional with no deviation Balance Sitting Static: Normal Sitting Dynamic: Normal Standing Static: Normal Standing Dynamic: Normal Assessment/Needs 56 y.o. male, will be seen short term by skilled PT to address functional mobility to ensure safe return to home with spouse at maximum LOF. Rehab Potential: Guarded PT Journeyman Pressman Goals Correction Goals PT Correction Goals Time Frame: May 18, 2022 Roll Left & Right (QC): 6 Sit to Lying (QC): 6 Lying-Sitting on Side/Bed(QC): 6 Sit to Stand (QC): 6 Chair/Rfm-sq-Jieqm Xfer(QC): 6 Toilet Transfer (QC): 6 Walk 10 feet (QC): 6 Walk 50ft with 2 Turns (QC): 6 PT Plan Problem List Problem List: Activity Tolerance, Functional Strength, Safety, Balance Treatment/Plan Treatment Plan: Continue Plan of Care Treatment Plan: Bed Mobility, Education, Functional Activity Christie, Functional Strength, Gait, Safety, Therapeutic Exercise, Transfers Treatment Duration: May 18, 2022 Frequency: 6 times per week Estimated Hrs Per Day: .25 hour per day Patient and/or Family Agrees t: Yes Discharge Recommendations Therapy Discharge Recommendati: Home & Family Time Time In: 1055 Time Out: 1107 DATE: May 06, 2022 Total Billed Treatment Time: 12 Total Billed Treatment 1 visit EVMod 12 min ROCKY KEITH PT May 06, 2022 11:26
--- NOTE | 2022-05-06 12:47 | Progress Note - Hospitalist ---
SCOTT RICHARD 05/06/22 1247: Subjective HPI/CC On Admission Date Seen by Provider: May 06, 2022 Time Seen by Provider: 08:45 Chief complaint: Left foot cellulitis with sepsis HPI: This is a 56-year-old male clinic patient of [facility] who has a past medical history of insulin-dependent diabetes and noncompliance who presents to the ER with left foot pain and increased edema. He was found to have significant se psis so he was given IV fluids and empiric antibiotics and general surgery consultation. Today he is having rigors and blood cultures are positive for bacteria. He was placed on broad-spectrum antibiotics of Zyvox and Zosyn. We will monitor his kidney function closely. Subjective/Events-last exam Patient is a 56 year old man admitted for left foot cellulitis with sepsis. He originally presented to the ER on 05/03 with weakness of both upper extremities that started earlier that morning. He was noted to have nausea, malaise, pain, swelling, and infection in his left foot and had been on cephalexin for the previous week. He was previously admitted for a similar foot infection in March. He was evaluated in the ER for suspected sepsis due to a HR of 117, respiratory rate of 22, lactic acid of 2.14, and initial WBC of 11.7. He was then started on piperacillin-tazobactam and admitted to the fourth floor. Initial blood cultures were positive, zyvox and zosyn were initiated. Imagine showed no evidence of osteomyelitis and surgery recommended conservative management with antibiotics. Eventually, zosyn was discontinued and linezolid remains the sole active antibiotic. Throughout his stay, his infection has improved significantly and WBC has returned to normal levels. Unfortunately, his kidney function has continued to decline. Initial BUN was 27, creatinine was 3.07, and estimated GFR was 23. Now his BUN is 42, creatinine is 4.16, and estimated GFR is 16. History of insulin-dependant diabetes, hyperlipidemia, hypertension, and stage IV chronic kidney disease. Nurse states that he was hallucinating during the night. Swatting at shadows that seemed to dart about the room. Patient states that he is feeling alright this morning. He is alert and oriented x3. 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 He notes nausea and vomiting last night that has improved into the morning hours. Denies urinary problems, abdominal pain, SOB. Notes intermittent chills and is scheduled to see Dr. Jiménez on to discuss his kidney function. Final ABG on 05/06 15:15 showed pH of 7.28, CO2 of 45, and O2 of 90. Review of Systems General: Chills (Intermittent); No Night Sweats; Fatigue HEENT: No Head Aches, No Visual Changes Pulmonary: No Dyspnea Cardiovascular: Edema (In left leg but notes that it is better than it was at admission); No: Chest Pain, Palpitations, Orthopnea Gastrointestinal: Nausea, Vomiting; No: Abdominal Pain, Diarrhea, Constipation Genitourinary: No Dysuria, No Frequency, No Incontinence Neurological: Weakness, Confusion (Delirium the night before that seems to have resolved); No: Numbness, Change in speech Focused Exam Sepsis Stage: Sepsis (Patient no longer appears septic and does not fit SIRS criteria any longer. WBC count has returned to normal range. HR is 98 last taken. Known source of infection with left leg cellulitis and positive blood cultures on 05/03. No fever or tachypnea.) Possible Source: Skin/Soft Tissue (Left leg cellulitis) Lactate Level 05/03/22 17:45: Lactic Acid Level 1.44 Objective Exam Vital Signs Vital Signs Date Time Temp Pulse Resp B/P (MAP) Pulse Ox O2 Delivery O2 Flow Rate FiO2 05/06/22 14:36 93 Nasal Cannula 7.00 05/06/22 11:08 36.8 98 18 137/78 (97) 05/03/22 18:19 21 Capillary Refill : Less Than 3 Seconds General Appearance: No Apparent Distress, WD/WN, Chronically ill, Obese HEENT: PERRL/EOMI, Normal ENT Inspection Neck: Full Range of Motion, Normal Inspection, Non Tender, Supple; No Carotid Bruit, No JVD Respiratory: Chest Non Tender, Lungs Clear, Normal Breath Sounds, No Accessory Muscle Use, No Respiratory Distress Cardiovascular: No Edema, No Gallop, No JVD, No Murmur, Normal Peripheral Pulses, Tachycardia (Minor tachycardia of 98) Gastrointestinal: Normal Bowel Sounds, No Organomegaly, Non Tender, Soft Back: Normal Inspection Extremity: Normal Capillary Refill, Normal Inspection, Swelling (Left lower leg swelling and tenderness to palpation with 1+ to 2+ pitting edema) Neurologic/Psychiatric: Alert, Oriented x3, No Motor/Sensory Deficits, Normal Mood/Affect, Other (Delirium noted the night before) Skin: Normal Color, Warm/Dry Lymphatic: No Adenopathy Results/Procedures Lab Laboratory Tests 05/06/22 05:18 05/06/22 15:05 Patient resulted labs reviewed. Radiology Date of Exam:05/06/22 US RENAL BILATERAL [id number] PROCEDURE: US Renal Bilateral. TECHNIQUE: Multiple real-time grayscale images were obtained over the kidneys in various projections bilaterally. INDICATION: Renal failure Right kidney measures 12.5 x 5.8 x 5.9 cm. Left kidney measures 12.9 x 6.0 x 5.3 cm. There is no mass, calculus or hydronephrosis seen in the kidney. Urinary bladder appears normal. IMPRESSION: Unremarkable renal ultrasound. Dictated by: Dictated on workstation # [id number] Dict: 05/06/22 0954 Trans: 05/06/22 1133 [facility] [id number] Interpreted by: STEPHEN ALVAREZ MD Electronically signed by: STEPHEN ALVAREZ MD 05/06/22 1133 Date of Exam:05/06/22 CHEST 1 VIEW, AP/PA ONLY INDICATION: Wheezing. TIME OF EXAM: 7:10 AM. COMPARISON: Correlation is made with the prior chest from 05/03/2022. FINDINGS: The heart is enlarged. There appears to be some infiltrate in the right perihilar and right basilar region. The left base is somewhat obscured by the enlarged heart. No effusion or pneumothorax is seen. IMPRESSION: Cardiomegaly with right perihilar and right basilar infiltrates. Dictated on workstation # [id number] Dict: 05/06/22 0835 Trans: 05/06/22 0851 [id number] Interpreted by: JILLIAN SHAY MD Electronically signed by: CXR report was a draft and may have been altered since this progress note was written Meds As stated in medications list. Piperacillin-tazobactam and linezolid for cellulitis. Patient also taking albuterol, amlodipine, mirtazapine, insulin detemir, protonix, gabapentin, clopidogrel, insulin aspart, senna, docusate sodium, alprazolam, heparin sodium, diphenhydramine, melatonin, acetaminophen, and ondansetron. Oxycodone 5mg for pain Assessment/Plan Assessment and Plan Assess & Plan/Chief Complaint Left leg cellulitis - patient to continue piperacillin-tazobactam and linezolid for the time being. Swelling and redness improved since admission. Sepsis - BC from 05/03 showed growth of strep dysgalactiae. Continue treatment with antibiotics, monitor kidney function, and monitor vital signs for indications of worsening infection or improvement in patient condition. Diabetes - continue insulin therapy. Close monitoring of blood glucose levels. Chronic kidney disease stage IV - patient condition followed by Dr. Jiménez. Will continue to monitor Cr and eGFR. Patient may eventually require dialysis. Hypertension - continue medical management DVT prophylaxis - patient on heparin and clopidogrel Clinical Quality Measures DVT/VTE Risk/Contraindication: Contraindications-Mechi: Other *list below* Other: leg cellulitis TARYN BARNETT DO 05/07/22 0513: Objective Exam General Appearance: Chronically ill, Mild Distress, Obese Respiratory: Decreased Breath Sounds, Wheezing Cardiovascular: Tachycardia (Minor tachycardia of 98) Assessment/Plan Assessment and Plan Assess & Plan/Chief Complaint Assessment: Acute respiratory distress due to volume overload Acute uremia with hallucinations Acute on chronic kidney disease likely needs renal replacement Diabetes history of noncompliance Abnormal chest x-ray Plan: Supportive care Volume overload with uremia prompting transfer Supervisory-Addendum Brief Verification & Attestation Participated in pt care: history, MDM, physical Personally performed: exam, history, MDM, supervision of care Care discussed with: Medical Student Procedures: n/a Results interpretation: Verified all documentation Verification and Attestation of Medical Student E/M Service A medical student performed and documented this service in my presence. I reviewed and verified all information documented by the medical student and made modifications to such information, when appropriate. I personally performed the physical exam and medical decision making. Taryn Barnett, May 07, 2022,05:13 SCOTT RICHARD May 06, 2022 12:47 TARYN BARNETT DO May 07, 2022 05:13
[2022-05-06] MEDS: RT-ALBUTEROL HFA 8.5 GM INHALER IH PRN (13:44)
--- NOTE | 2022-05-06 14:09 | Occ Therapy Progress Note ---
Therapy Progress Note OT orders received and chart reviewed. OT attempted evaluation, but pt was laying sidelying in bed attempting to get comfy to nap. Pt's states pt didn't sleep well last night. Pt only responded to therapist in grunts/groans, did not make eye contact or attempt to participate in OT tx. Pt's requests OT attempt again tomorrow to allow pt to rest. OT will attempt again tomorrow per family request. 1, refusal ALONDRA ZUNIGA OT May 06, 2022 14:09
[2022-05-06] MEDS: ONDANSETRON 4 MG/2 ML (SDV) Z0FRAN IV PRN (14:21)
--- NOTE | 2022-05-06 14:53 | Discharge Summary ---
Discharge Summary Hospital Course Was the Problem List Reviewed?: Yes Problems/Dx: (1) Sepsis (2) Bacteremia (3) CKD (chronic kidney disease) stage 4, GFR 15-29 ml/min (4) DVT prophylaxis Status: Acute (5) Hyperlipidemia Status: Chronic (6) Hypertension Status: Chronic (7) Cellulitis of left foot (8) Uncontrolled diabetes mellitus Status: Acute (9) Left leg cellulitis Status: Acute Hospital Course Date of Admission: May 03, 2022 at 16:46 Admission Diagnosis : Family Physician/Provider: Yeimy Iqbal Aprn Date of Discharge: 05/06/22 Discharge Diagnosis: [ ] Hospital Course: Patient is a 56 year old man admitted for left foot cellulitis with sepsis. He originally presented to the ER on 05/03 with weakness of both upper extremities that started earlier that morning. He was noted to have nausea, malaise, pain, swelling, and infection in his left foot and had been on cephalexin for the previous week. He was previously admitted for a similar foot infection in March. He was evaluated in the ER for suspected sepsis due to a HR of 117, respiratory rate of 22, lactic acid of 2.14, and initial WBC of 11.7. He was then started on piperacillin-tazobactam and admitted to the fourth floor. Initial blood cultures were positive, zyvox and zosyn were initiated. Imagine showed no evidence of osteomyelitis and surgery recommended conservative management with antibiotics. Eventually, zosyn was discontinued and linezolid remains the sole active antibiotic. Throughout his stay, his infection has improved significantly and WBC has returned to normal levels. Unfortunately, his kidney function has continued to decline. Initial BUN was 27, creatinine was 3.07, and estimated GFR was 23. Now his BUN is 42, creatinine is 4.16, and estimated GFR is 16. History of insulin-dependant diabetes, hyperlipidemia, hypertension, and stage IV chronic kidney disease. Nurse states that he was hallucinating during the night. Swatting at shadows that seemed to dart about the room. Patient states that he is feeling alright this morning. He is alert and oriented x3. 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 He notes nausea and vomiting last night that has improved into the morning hours. Denies urinary problems, abdominal pain, SOB. Notes intermittent chills and is scheduled to see Dr. Jiménez on to discuss his kidney function. Final ABG on 05/06 15:15 showed pH of 7.28, CO2 of 45, and O2 of 90. Patient had declining respiratory function prompting ICU transfer and repeat labs showed creatinine increased from 4.0-4.1 with signs of uremia with confusion so he was moved to [facility] ICU. Labs and Pending Lab Test: Laboratory Tests 05/05/22 16:27: Glucometer 101 05/05/22 19:30: Glucometer 128H 05/05/22 20:16: Glucometer 110 05/05/22 23:20: Glucometer 119H 05/06/22 05:01: Glucometer 114H 05/06/22 05:18: White Blood Count 7.5, Red Blood Count 3.12L, Hemoglobin 8.7L, Hematocrit 27L, Mean Corpuscular Volume 86, Mean Corpuscular Hemoglobin 28, Mean Corpuscular Hemoglobin Concent 33, Red Cell Distribution Width 14.8H, Platelet Count 164, Mean Platelet Volume 10.4, Immature Granulocyte % (Auto) 1, Neutrophils (%) (Auto) 83H, Lymphocytes (%) (Auto) 10L, Monocytes (%) (Auto) 5, Eosinophils (%) (Auto) 1, Basophils (%) (Auto) 0, Neutrophils # (Auto) 6.1, Lymphocytes # (Auto) 0.8L, Monocytes # (Auto) 0.3, Eosinophils # (Auto) 0.1, Basophils # (Auto) 0.0, Immature Granulocyte # (Auto) 0.1, Sodium Level 136, Potassium Level 4.3, Chloride Level 105, Carbon Dioxide Level 16L, Anion Gap 15H, Blood Urea Nitrogen 42H, Creatinine 4.06H, Estimat Glomerular Filtration Rate 16, BUN/Creatinine Ratio 10, Glucose Level 123H, Uric Acid 7.8H, Calcium Level 8.7, Corrected Calcium 9.5, Total Bilirubin 0.8, Aspartate Amino Transf (AST/SGOT) 14, Alanine Aminotransferase (ALT/SGPT) 14, Alkaline Phosphatase 48, Total Protein 6.6, Albumin 3.0L 05/06/22 06:33: Blood Gas Puncture Site R RAD, Blood Gas Patient Temperature 63.4, Arterial Blood pH 7.27*L, Arterial Blood Partial Pressure CO2 44, Arterial Blood Partial Pressure O2 104H, Arterial Blood HCO3 20L, Arterial Blood Total CO2 21.2, Arterial Blood Oxygen Saturation 99, Arterial Blood Base Excess -6.0L, Andre Test YES-POS, Blood Gas Ventilator Setting NO, Blood Gas Inspired Oxygen 10L 05/06/22 10:20: Urine Color YELLOW, Urine Clarity CLEAR, Urine pH 5.5, Urine Specific [place] 1.020, Urine Protein 2+H, Urine Glucose (UA) NEGATIVE, Urine Ketones NEGATIVE, Urine Nitrite NEGATIVE, Urine Bilirubin NEGATIVE, Urine Urobilinogen 0.2, Urine Leukocyte Esterase NEGATIVE, Urine RBC (Auto) 1+H, Urine RBC 2-5H, Urine WBC NONE, Urine Crystals PRESENTH, Urine Amorphous Sediment FEW DEDRICK URATESH, Urine Bacteria NEGATIVE, Urine Casts NONE, Urine Mucus NEGATIVE, Urine Culture Indicated NO, Urine Eosinophils [Pending], Urine Random Sodium [Pending], Urine Creatinine 41, Urine Protein/Creatinine Ratio 3.88 05/06/22 10:29: Glucometer 156H Microbiology 05/03/22 Gram Stain - Final, Resulted 05/03/22 Wound Culture - Preliminary, Resulted Staphylococcus aureus Susceptibility To Follow Streptococcus dysgalactiae 05/03/22 Blood Culture - Preliminary, Resulted No growth Home Meds Active Reported Acidophilus (Lactobacillus Acidophilus) 1 Each Capsule 1 Each PO DAILY Mirtazapine 15 Mg Tablet 15 Mg PO DAILY Neurontin (Gabapentin) 300 Mg Capsule 900 Mg PO HS TAKES 3 (300MG) CAPS Cephalexin 500 Mg Capsule 500 Mg PO TID FILLED 04-25-2022 #30/10 DAY SUPPLY Novolog Flexpen (Insulin Aspart) 100 Unit/Ml (3 Ml) Solution 20 Units SQ TIDWM Baqsimi (Glucagon) 3 Mg/Actuation [place] 3 Mg NA DAILY PRN Amlodipine Besylate 5 Mg Tablet 10 Mg PO DAILY TAKES 2 (5MG) TAB Lisinopril 40 Mg Tablet 40 Mg PO DAILY Basaglar Kwikpen U-100 (Insulin Glargine,Hum.rec.anlog) 100 Unit/Ml (3 Ml) Insuln.pen 34 Unit SQ BID Furosemide 40 Mg Tablet 40 Mg PO HS Vitamin D2 (Ergocalciferol (Vitamin D2)) 1,250 Mcg (16753 Unit) Capsule 1,250 Mcg PO FRIDAY ONCE WEEKLY Clopidogrel (Clopidogrel Bisulfate) 75 Mg Tablet 75 Mg PO DAILY Atorvastatin Calcium 40 Mg Tablet 40 Mg PO DAILY Aspirin 81 Mg Tab.chew 81 Mg PO DAILY Docusate Sodium 100 Mg Capsule 100 Mg PO DAILY PRN Ventolin Hfa (Albuterol Sulfate) 90 Mcg Hfa.aer.ad 2 Puff IH Q4H PRN 1 PUFF = 90 MCG Assessment/Pt Instructions Transfer to [facility] Discharge Planning: <30 minutes discharge planning Discharge Physical Examination Vital Signs Vital Signs Date Time Temp Pulse Resp B/P (MAP) Pulse Ox O2 Delivery O2 Flow Rate FiO2 05/06/22 14:36 93 Nasal Cannula 7.00 05/06/22 11:08 36.8 98 18 137/78 (97) 05/03/22 18:19 21 General Appearance: Anxious, Obese, Other (Confused) Respiratory: No Respiratory Distress, Accessory Muscle Use, Crackles, Wheezing Cardiovascular: Tachycardia Neurologic/Psychiatric: Alert, Disoriented Allergies: Coded Allergies: vancomycin (Verified Allergy, Unknown, 03/30/21) cocaine (Unverified Adverse Reaction, Unknown, 11/13/21) Discharge Summary Date of Admission May 03, 2022 at 16:46 Date of Discharge Discharge Date: May 06, 2022 Admission Diagnosis Assessment: Sepsis Left foot cellulitis Bacteremia Peripheral vascular disease Diabetes Hypertension Chronic kidney disease stage IV Plan: Broad-spectrum antibiotics IV fluid General surgery consultation DVT prophylaxis Discharge Diagnosis Assessment: Sepsis Left foot cellulitis Bacteremia Peripheral vascular disease Diabetes Hypertension Chronic kidney disease stage IV Plan: Broad-spectrum antibiotics IV fluid General surgery consultation DVT prophylaxis (1) Sepsis (2) Bacteremia (3) CKD (chronic kidney disease) stage 4, GFR 15-29 ml/min (4) DVT prophylaxis Status: Acute (5) Hyperlipidemia Status: Chronic (6) Hypertension Status: Chronic (7) Cellulitis of left foot (8) Uncontrolled diabetes mellitus Status: Acute (9) Left leg cellulitis Status: Acute Clinical Quality Measures DVT/VTE Risk/Contraindication: Contraindications-Mechi: Other *list below* Other: leg cellulitis MONTSERRAT BARNETT DO May 06, 2022 14:53
[2022-05-06] MEDS ORDERED: RT-ALBUTEROL/IPRATROPIUM 3 ML (DUONEB) VIAL INH SCH (15:00)
[2022-05-06 15:16] LABS: BASOPHILS % (AUTO) 0 % (0-10); EOSINOPHILS # (AUTO) 0.1 10^3/uL (0.0-0.3); EOSINOPHILS % (AUTO) 1 % (0-10); HEMATOCRIT 28 % (40-54); HEMOGLOBIN 9.2 g/dL (13.3-17.7); LYMPHOCYTES # (AUTO) 0.7 X 10^3 (1.0-4.0); LYMPHOCYTES % (AUTO) 12 % (12-44); MEAN CORPUSCULAR HEMOGLOBIN 28 pg (25-34); MEAN CORPUSCULAR HGB CONC 33 g/dL (32-36); MEAN CORPUSCULAR VOLUME 85 fL (80-99); MEAN PLATELET VOLUME 9.6 fL (9.0-12.2); MONOCYTES # (AUTO) 0.3 X 10^3 (0.0-1.0); MONOCYTES % (AUTO) 4 % (0-12); NEUTROPHILS # (AUTO) 4.8 X 10^3 (1.8-7.8); NEUTROPHILS % (AUTO) 82 % (42-75); PLATELET COUNT 175 10^3/uL (130-400); WHITE BLOOD COUNT 5.8 10^3/uL (4.3-11.0)
[2022-05-06 15:26] LABS: ABG BASE EXCESS -5.1 MMOL/L (-2.5-2.5); ABG OXYGEN SATURATION 97 % (94-100); ABG PCO2 45 MMHG (35-45); ABG PO2 90 MMHG (79-93); ABG TCO2 21.4 MMOL/L (21.0-31.0)
[2022-05-06 15:27] LABS: ALLENS TEST POSITIVE; VENTILATOR NO
[2022-05-06 15:27] LABS: ALBUMIN 3.2 GM/DL (3.2-4.5)
[2022-05-06 15:28] LABS: POTASSIUM 4.4 MMOL/L (3.6-5.0)
[2022-05-06 15:28] LABS: INSPIRED O2 7L; PATIENT TEMP 38.6
[2022-05-06 15:29] LABS: ABG PH 7.28 (7.37-7.43)
[2022-05-06 15:30] LABS: TOTAL PROTEIN 6.9 GM/DL (6.4-8.2)
[2022-05-06] MEDS ORDERED: NS IV 500 ML 500 ML IV PRN (15:30)
[2022-05-06] MEDS ORDERED: LORazepam INJ 2 MG/ML (ATIVAN) VIAL IVP PRN (15:30)
[2022-05-06 15:32] LABS: BILIRUBIN,TOTAL 0.9 MG/DL (0.1-1.0)
[2022-05-06 15:34] LABS: CREATININE SERUM 4.16 MG/DL (0.60-1.30)
--- NOTE | 2022-05-06 16:23 | Diagnostic Imaging Report ---
INDICATION: Hypoxemia. EXAMINATION: Portable chest, 3:51 p.m. FINDINGS: There is vascular congestion with interstitial edema. There are no effusions. IMPRESSION: Probable congestive heart failure with pulmonary edema. Bilateral perihilar pneumonia cannot be excluded. Clinical correlation recommended. Dictated by: Dictated on workstation # [id number]
[2022-05-06] MEDS: ALPRAZolam 0.5 MG (XANAX) TAB PO PRN ×2 (16:57→21:15)
--- NOTE | 2022-05-06 17:51 | Tele-ICU Consult ---
History of Present Illness History of Present Illness Date Seen by Provider: May 06, 2022 Time Seen by Provider: 17:50 Date of Admission (Tele-ICU Physician , consultation as per request of PCP Service provided via interactive audio and video telecommunications E-CARE system to a patient admitted to ICU bed in [facility]. Available chart/ vitals / labs / Images reviewed H&P is from ER notes Patient's information available about PMH, Shx, Fhx allergy reviewed inEMR. ROS as per chart and RN report Now in ICU, hemodynamically stable Video assessment done using teleICU camera, rest of exam as per RN Discussed with RN. Consultants: Hospital course: A/P Acute resp failure - was on BIPAP nightly prior to transfer to ICU 05/28| 16 | 50%-- 6 L daytime - suspectet VO - CPM Cellulitis - Foot grew out SA presumed MRSA. Patient on Linezolid - blood cx pending BISI / CKD - as per rn - good urtine output - planned transfer to other facility with renal MD - consider bicarb gtt if deteriorate Met acidosis due to above - compensate now , to cont BIPAP at night ECHO 10/2021 -EF 45% , RVSP 25 mmHg Altered mental status - TME . uremia - follow HTN - with VO and tachycardia with fever - PRN labetalol Lines : , (Central Line Necessity Reviewed) Bates: OG: Nutrition: Analgesia: Anxiety/ delirium VTE Prophylaxis: hep sq Stress Ulcer Prophylaxis: ppi Glycemic Control: ISS Plans in collaboration with bedside consultants and IM MDs. Discussed with RN to reach out if any questions or concerns A total of 34 minutes of critical care time was devoted to this patient today, required to treat and/or prevent further deterioration of critical care condition ( as above ) . I am remotely monitoring this patient from another state. I am unable to do the bedside exam, and history/physical and pertinent information is taken from other notes in the computer and bedside staff. . History of Present Illness (Tele-ICU Physician , consultation as per request of PCP Service provided via interactive audio and video telecommunications E-CARE system to a patient admitted to ICU bed in [facility]. Available chart/ vitals / labs / Images reviewed H&P is from ER notes Patient's information available about PMH, Shx, Fhx allergy reviewed inEMR. ROS as per chart and RN report Now in ICU, hemodynamically stable Video assessment done using teleICU camera, rest of exam as per RN Discussed with RN. Consultants: Hospital course: (05/03) 56 y/o male admitted for left ft cellulitis, bacteremia, BISI (05/06) transferred to ICU for confusion & hallucinations A/P Acute resp failure - was on BIPAP nightly prior to transfer to ICU 05/28| 16 | 50%-- 6 L daytime - suspected VO - CPM Cellulitis - Foot grew out SA presumed MRSA. Patient on Linezolid - blood cx pending BISI / CKD - as per rn - good urtine output - planned transfer to other facility with renal MD - consider bicarb gtt if deteriorate Met acidosis due to above - compensate now , to cont BIPAP at night ECHO 10/2021 -EF 45% , RVSP 25 mmHg Altered mental status - TME . uremia ( nonfocal exam ) - follow HTN - with VO and tachycardia with fever - PRN labetalol Lines : , (Central Line Necessity Reviewed) Bates: OG: Nutrition: Analgesia: Anxiety/ delirium VTE Prophylaxis: hep sq Stress Ulcer Prophylaxis: ppi Glycemic Control: ISS Plans in collaboration with bedside consultants and IM MDs. Discussed with RN to reach out if any questions or concerns A total of 34 minutes of critical care time was devoted to this patient today, required to treat and/or prevent further deterioration of critical care condition ( as above ) . I am remotely monitoring this patient from another state. I am unable to do the bedside exam, and history/physical and pertinent information is taken from other notes in the computer and bedside staff. . Allergies and Home Medications Allergies Coded Allergies: vancomycin (Verified Allergy, Unknown, 03/30/21) cocaine (Unverified Adverse Reaction, Unknown, 11/13/21) Home Medications Albuterol Sulfate 90 Mcg Hfa.aer.ad, 2 PUFF IH Q4H PRN for SHORTNESS OF BREATH, (Reported) 1 PUFF = 90 MCG Amlodipine Besylate 5 Mg Tablet, 10 MG PO DAILY, (Reported) TAKES 2 (5MG) TAB Aspirin 81 Mg Tab.chew, 81 MG PO DAILY, (Reported) Atorvastatin Calcium 40 Mg Tablet, 40 MG PO DAILY, (Reported) Clopidogrel Bisulfate 75 Mg Tablet, 75 MG PO DAILY, (Reported) Docusate Sodium 100 Mg Capsule, 100 MG PO DAILY PRN for CONSTIPATION-1ST LINE, (Reported) Ergocalciferol (Vitamin D2) 1,250 Mcg (37434 Unit) Capsule, 1,250 MCG PO FRIDAY, (Reported) ONCE WEEKLY Gabapentin 300 Mg Capsule, 900 MG PO HS, (Reported) TAKES 3 (300MG) CAPS Glucagon 3 Mg/Actuation [place], 3 MG NA DAILY PRN for HYPOGLYCEMIA, (Reported) Insulin Aspart 100 Unit/Ml (3 Ml) Solution, 20 UNITS SQ TIDWM, (Reported) Insulin Glargine,Hum.rec.anlog 100 Unit/Ml (3 Ml) Insuln.pen, 34 UNIT SQ BID, (Reported) Lactobacillus Acidophilus 1 Each Capsule, 1 EACH PO DAILY, (Reported) Lisinopril 40 Mg Tablet, 40 MG PO DAILY, (Reported) Mirtazapine 15 Mg Tablet, 15 MG PO DAILY, (Reported) Past Medical/Social/Family Hx Patient Social History Marrital Status: cohabiting Employed/Student: unemployed Tobacco Use?: Yes Smoking Status: Former Smoker Smokeless Tobacco Frequency: Former User Use of E-Cig and/or Vaping dev: No Substance use?: No Alcohol Use?: Yes Alcohol Frequency: Rarely Pt stated abuse/neglect: No Immunizations Up To Date Influenza Vaccine Up-to-Date: No; Not Current First/Initial COVID19 Vaccinat: unvaccinated Second COVID19 Vaccination Mika: unvaccinated Tetanus Booster (TDap): Unknown Current Status Advance Directives: No Communicates: Verbally Primary Language: Belarusian Preferred Spoken Language: Belarusian Is interpretation needed?: No Family Medical History Family Hx: SOCIAL HISTORY: -SMOKED A TEEN, STATES HE QUIT AT AGE 13 -ETOH--USED TO DRINK MODERATELY, NONE FOR A YEAR--PER PT ON 03/30/22 -DRUGS--DENIES USE Review of Systems Constitutional: see HPI Focused Exam Lactate Level 05/06/22 16:25: Lactic Acid Level 0.76 Height, Weight, BMI Height: '" Weight: lbs. oz. kg; 33.49 BMI Method: Lactic Acid Level Laboratory Tests Test 05/06/22 16:25 Lactic Acid Level 0.76 MMOL/L (0.50-2.00) Exam Exam Patient acknowledged, consented, and participated in this virtual visit which was conducted using real time audio/video Vital Signs Date Time Temp Pulse Resp B/P (MAP) Pulse Ox O2 Delivery O2 Flow Rate FiO2 05/06/22 16:58 38.6 05/06/22 16:38 93 Nasal Cannula 7.00 05/06/22 16:15 118 25 196/95 (128) 93 Nasal Cannula 7.00 05/06/22 16:00 124 38 213/102 (139) 92 Nasal Cannula 7.00 05/06/22 16:00 124 05/06/22 15:45 123 38 197/129 (151) 92 Nasal Cannula 7.00 05/06/22 14:36 93 Nasal Cannula 7.00 05/06/22 14:02 97 Nasal Cannula 5.00 05/06/22 13:44 90 Nasal Cannula 4.00 05/06/22 13:30 94 OxyMask 4.00 05/06/22 11:08 36.8 98 18 137/78 (97) 96 Nasal Cannula 4.00 05/06/22 10:05 36.9 93 96 05/06/22 08:00 OxyMask 4.00 05/06/22 07:13 36.9 90 18 153/81 (105) 92 Nasal Cannula 6.00 05/06/22 06:49 OxyMask 6.00 05/06/22 06:47 95 OxyMask 10.00 05/06/22 06:46 98 OxyMask 6.00 05/06/22 06:33 96 OxyMask 10.00 05/06/22 04:16 36.6 95 20 132/87 (102) 96 OxyMask 10.00 05/06/22 02:41 91 OxyMask 10.00 05/06/22 02:37 37.2 101 24 96 OxyMask 10.00 05/06/22 00:26 37.2 05/06/22 00:04 115 20 98 50.00 05/05/22 23:56 37.6 05/05/22 23:49 37.6 115 20 145/86 (105) 98 NIV Bilevel 50.00 05/05/22 23:32 97 OxyMask 15.00 05/05/22 23:12 37.1 102 22 172/86 (114) 90 OxyMask 15.00 05/05/22 20:51 97 157/88 (111) 05/05/22 20:24 94 Room Air 11/13/22 20:22 36.3 104 22 173/80 (111) 90 Room Air I & O 05/06/22 07:00 Intake Total 2670 ml Output Total 200 ml Balance 2470 ml Height & Weight Height: '" Weight: lbs. oz. kg; 33.49 BMI Method: General Appearance: No Apparent Distress, WD/WN, Chronically ill, Obese HEENT: PERRL/EOMI, Normal ENT Inspection Neck: Full Range of Motion, Normal Inspection, Non Tender, Supple; No Carotid Bruit, No JVD Respiratory: Chest Non Tender, Lungs Clear, Normal Breath Sounds, No Accessory Muscle Use, No Respiratory Distress Cardiovascular: No Edema, No Gallop, No JVD, No Murmur, Normal Peripheral Pulses, Tachycardia (Minor tachycardia of 98) Capillary Refill: Less Than 3 Seconds Gastrointestinal: non tender, soft Extremity: Normal Capillary Refill, Normal Inspection, Swelling (Left lower leg swelling and tenderness to palpation with 1+ to 2+ pitting edema) Neurologic/Psychiatric: Alert, Oriented x3, No Motor/Sensory Deficits, Normal Mood/Affect, Other (Delirium noted the night before) Skin: Normal Color, Warm/Dry Lymphatic: No Adenopathy Results Lab Laboratory Tests 05/05/22 05:20 05/06/22 05:18 05/06/22 15:05 Assessment/Plan Assessment/Plan ` GUILLERMINA PAINTING MD May 06, 2022 17:51
[2022-05-06] MEDS ORDERED: meTOprolol 5 MG/5 ML (LOPRESSOR) VIAL IV SCH (18:00)
[2022-05-06] MEDS: MIRTAZAPINE 15 MG (REMERON) TAB PO SCH (21:09)
[2022-05-07] MEDS ORDERED: MAGNESIUM 1 GM/100 ML IVPB 100 ML IV SCH (06:00)
[2022-05-07] MEDS ORDERED: KCL 20 MEQ TAB (K-DUR) PO SCH (06:00)
[2022-05-07] MEDS ORDERED: POTASSIUM CL 10MEQ/50ML IVPB 50 ML IV SCH (06:00)
== END 2022-05-06 22:13 | disposition short-term general hospital (02) | DRG 871 ==
LOC: EDUNIT# 13:56 → ER 13:59 → 4TH 16:46 → ICU 05-06 15:34
PROVIDERS: ADMIT Internal Medicine; ATTEND Internal Medicine
PROC: 5A09357 Assistance with Respiratory Ventilation, Less than 24 Consecutive Hours, Continuous Positive Airway Pressure (ICD-10-PCS; principal; 2022-05-05)
DX: A41.9 Sepsis, unspecified organism (principal); J96.00 Acute respiratory failure, unspecified whether with hypoxia or hypercapnia; L03.116 Cellulitis of left lower limb; N18.4 Chronic kidney disease, stage 4 (severe); N17.9 Acute kidney failure, unspecified; E87.20 Acidosis, unspecified; I12.9 Hypertensive chronic kidney disease with stage 1 through stage 4 chronic kidney disease, or unspecified chronic kidney disease; E11.22 Type 2 diabetes mellitus with diabetic chronic kidney disease; E11.65 Type 2 diabetes mellitus with hyperglycemia; E11.51 Type 2 diabetes mellitus with diabetic peripheral angiopathy without gangrene; Z79.82 Long term (current) use of aspirin; Z79.4 Long term (current) use of insulin; Z79.899 Other long term (current) drug therapy; E78.00 Pure hypercholesterolemia, unspecified; Z86.73 Personal history of transient ischemic attack (TIA), and cerebral infarction without residual deficits; Z87.891 Personal history of nicotine dependence; Z20.822 Contact with and (suspected) exposure to COVID-19; E87.70 Fluid overload, unspecified; F28 Other psychotic disorder not due to a substance or known physiological condition; Z95.5 Presence of coronary angioplasty implant and graft; I25.10 Atherosclerotic heart disease of native coronary artery without angina pectoris
CPT/HCPCS: 36410; 36415; 36600; 71045; 73630; 73700; 76770; 76937; 80053; 81000; 82570; 82805; 82947; 83605; 83880; 84145; 84156; 84300; 84550; 85007; 85025; 85027; 85610; 85652; 85730; 86141; 87040; 87070; 87077; 87186; 87205; 87636; 94640; 94660; 94664; 94760